=== PATIENT | male | born 1960 | race Caucasian/White ===

== ENCOUNTER 2022-02-15 05:45 | Day surgery (SDC) | payer MEDICARE ==
[2022-02-15 06:26] LABS: Hematocrit 48.1 % (42-50); Hemoglobin 14.2 g/dL (12.5-18.0); Mean Cell Volume 88.6 fL (78-100); Mean Corpuscular Hemoglobin 26.2 pg (26-32); Mean Corpuscular Hgb Concent. 29.5 g/dL (32-36); Mean Platelet Volume 10.9 fL (7.5-11.0); Platelet Count 176 x10^3/uL (150-450); Red Blood Count 5.43 x10^6/uL (4.1-5.6); Red Cell Distribution Width 15.3 % (11.5-14.0); White Blood Count 6.2 x10^3/uL (4.0-10.5)
[2022-02-15] MEDS ORDERED: Lactated Ringers 1,000 ML IV SCH (06:30)
[2022-02-15] MEDS ORDERED: DIPRIVAN 200 MG/20 ML IV ONE (06:47)
[2022-02-15] MEDS ORDERED: Xylocaine-Mpf 2% 5 Ml Vial ONE (06:47)
[2022-02-15] MEDS ORDERED: Versed 2 MG/2 ML Injection ONE (06:48)
[2022-02-15] MEDS ORDERED: Lactated Ringers 1,000 ML IV ONE (07:43)
[2022-02-15 08:47] VITALS: BP 108/68; PULSE 75; O2SAT 92
--- NOTE | 2022-02-15 16:49 | OP ---
SURGERY DATE: 02/15/2022 SURGERY TIME: 726 PREOPERATIVE DIAGNOSIS: 1. SCREENING EXAM. POSTOPERATIVE DIAGNOSIS: 1. NORMAL COLON. PROCEDURE: 1. Colonoscopy. SURGEON: Dr. Smith. ANESTHESIA: MAC. Medications given by the Anesthesia Department. BRIEF HISTORY: The patient is a 61 year-old WM patient presenting now for screening colonoscopy. The patient was appraised of the risks of the procedure including the risk of perforation, phlebitis, untoward reaction to medication, bleeding, and missed lesions. The patient verbalized his understanding and desired to have the procedure performed. DESCRIPTION OF PROCEDURE: The patient was given the medications by the Anesthesia Department. He had continuous pulse oximetry, ECG monitoring, and intermittent BP monitoring during the examination. He was placed in the left lateral decubitus position. A digital rectal examination was performed and revealed normal anal sphincter tone, no masses, and a normal prostate. The flexible Olympus pediatric colonoscope was used to intubate the rectum. A view of the colon was developed sequentially to the cecum. Upon insertion and withdrawal, was noted no mucosal lesions. The scope was removed from the patient who tolerated the procedure well and was sent back to OP recovery in good condition. The prep was noted to be fair to poor with large amounts of liquid and particulate matter throughout the colon.
== END 2022-02-15 08:52 | disposition home or self-care (01) ==
LOC: SDC 05:45
PROVIDERS: ATTEND Family Medicine
DX: Z12.11 Encounter for screening for malignant neoplasm of colon (principal); E11.9 Type 2 diabetes mellitus without complications
CPT/HCPCS: 36415; 82947; 85027; J2250; J2704

== ENCOUNTER 2023-08-18 09:50 | Emergency (ER) | payer MEDICARE ==
--- NOTE | 2023-08-18 10:15 | ERPHSYRPT ---
- History of Present Illness Time Seen by Provider: 08/18/23 09:57 Source: patient, family () Exam Limitations: no limitations Physician History: Reportedly 1 week ago a walker ran over pt's left foot with resultant pain. Last night pt's left small toe had pus; today pt had redness of the left side of his left foot. Pt denies chest pain, shortness of air, nausea, abdominal pain, fever. Allergies/Adverse Reactions: Penicillins Allergy (Verified 08/18/23 10:05) states "don't know, my mom just always said that" Home Medications: Aspirin [Aspirin EC] 81 mg PO DAILY 01/31/22 [History] Clopidogrel Bisulfate [Clopidogrel] 75 mg PO DAILY 01/31/22 [History] Dulaglutide [Trulicity] 0.75 ml SQ WEEKLY 01/31/22 [History] Metoprolol Succinate 25 mg Xl* [Toprol-Xl 25MG Tablets] 25 mg PO DAILY 01/31/22 [History] Pentoxifylline 400 mg PO BID 01/31/22 [History] Potassium Chloride 8 meq PO BID 01/31/22 [History] Evolocumab [Repatha Sureclick] 140 mg SQ UD 07/17/23 [History] Ubidecarenone/Vit E Acet [Co Q-10 100 mg Softgel] 1 each PO DAILY 07/17/23 [History] lisinopriL [Lisinopril] 1 tab PO DAILY 07/17/23 [History] Furosemide [Lasix] 20 mg PO DAILY 08/18/23 [History] Hx Tetanus, Diphtheria Vaccination/Date Given: (unknown) Hx Influenza Vaccination/Date Given: (unknown) Hx Pneumococcal Vaccination/Date Given: (unknown) - Review of Systems Constitutional: No Fever Respiratory: No Dyspnea Cardiac: No Chest Pain Abdominal/Gastrointestinal: No Abdominal Pain, No Nausea, No Vomiting Musculoskeletal: Injury (left foot) - Past Medical History Pertinent Past Medical History: Yes Neurological History: No Pertinent History ENT History: No Pertinent History Cardiac History: Hypertension Respiratory History: No Pertinent History Endocrine Medical History: Diabetes Type II Musculoskeletal History: No Pertinent History GI Medical History: No Pertinent History History: No Pertinent History Psycho-Social History: No Pertinent History Male Reproductive Disorders: No Pertinent History - Past Surgical History Past Surgical History: Yes Neuro Surgical History: No Pertinent History Cardiac: CABG, Pacemaker, Internal Defibrillator Respiratory: No Pertinent History Gastrointestinal: No Pertinent History, Cholecystectomy Genitourinary: No Pertinent History Musculoskeletal: No Pertinent History, Other Male Surgical History: No Pertinent History Other Surgical History: girlfriend states some type of heart surgery 10 years ago. Left eye surgery Feb 2023 - Social History Smoking Status: Unknown if ever smoked Exposure to second hand smoke: No Drug Use: none Patient Lives Alone: No - Nursing Vital Signs Nursing Vital Signs: Initial Vital Signs Temperature 97.9 F 08/18/23 09:50 Pulse Rate 70 08/18/23 09:50 Respiratory Rate 19 08/18/23 09:50 Blood Pressure 160/60 08/18/23 09:50 O2 Sat by Pulse Oximetry 93 L 08/18/23 09:50 Pain Scale Pain Intensity 0 - Physical Exam General Appearance: alert Eyes, Ears, Nose, Throat Exam: pharynx normal Neck Exam: normal inspection Cardiovascular/Respiratory Exam: normal breath sounds, heart sounds normal Gastrointestinal/Abdominal Exam: soft (B.S. normal) Foot Exam: left foot: swelling (erythema, edema and tenderness of the left forefoot with minimal amount of pus on the left small toe.) Mental Status Exam: alert, cooperative Skin Exam: No cyanosis - Radiology Exams Left Foot X-ray Interpretation: Teleradiologist Report (No acute osseous abnormality seen in foot. See rest of report.) Ordered Tests: Active Orders 24 hr Category Date Time Status IV Insertion STAT Care 08/18/23 10:09 Active FOOT (MINIMUM 3 VIEWS) Stat Exams 08/18/23 10:11 Completed BLOOD CULTURE Stat Lab 08/18/23 10:41 Received CBC W DIFF Stat Lab 08/18/23 10:15 Completed CMP Stat Lab 08/18/23 10:15 Completed Medication Summary Generic Name Dose Route Start Last Admin Trade Name Freq PRN Reason Stop Dose Admin Sodium Chloride 1,000 mls @ 100 mls/hr 08/18/23 10:15 08/18/23 10:49 Sodium Chloride 0.9% 1000 Ml IV 09/17/23 10:14 100 mls/hr .Q10H JAN Administration Discontinued Medications Generic Name Dose Route Start Last Admin Trade Name Freq PRN Reason Stop Dose Admin Clindamycin HCl/Dextrose 600 mg in 50 mls @ 100 mls/hr 08/18/23 10:10 08/18/23 11:26 Clindamycin-D5w 600 Mg/50 Ml IV 08/18/23 10:39 Infused STAT STA Infusion Clindamycin HCl/Dextrose Confirm 08/18/23 10:26 Clindamycin-D5w 600 Mg/50 Ml Administered 08/18/23 10:27 Dose 600 mg in 50 mls @ ud IV .STK-MED ONE Lab/Rad Data: Laboratory Result Diagrams 08/18/23 10:15 08/18/23 10:15 Laboratory Results 08/18/23 08/18/23 Range/Units 10:15 10:15 WBC 7.3 (4.0-10.5) x10^3/uL RBC 4.90 (4.1-5.6) x10^6/uL Hgb 13.4 (12.5-18.0) g/dL Hct 43.2 (42-50) % MCV 88.2 (78-100) fL MCH 27.3 (26-32) pg MCHC 31.0 L (32-36) g/dL RDW 12.4 (11.5-14.0) % Plt Count 141 L (150-450) x10^3/uL MPV 12.2 H (7.5-11.0) fL Gran % 76.7 H (36.0-66.0) % Immature Gran % (Auto) 0.3 (0.00-0.4) % Nucleat RBC Rel Count 0.0 (0.00-0.1) % Eos # (Auto) 0.10 (0-0.5) x10^3/uL Immature Gran # (Auto) 0.02 (0.00-0.03) x10^3u/L Absolute Lymphs (auto) 0.94 L (1.0-4.6) x10^3/uL Absolute Monos (auto) 0.58 (0.0-1.3) x10^3/uL Absolute Nucleated RBC 0.00 (0.00-0.01) x10^3u/L Lymphocytes % 12.9 L (24.0-44.0) % Monocytes % 8.0 (0.0-12.0) % Eosinophils % 1.4 (0.00-5.0) % Basophils % 0.7 (0.0-0.4) % Absolute Granulocytes 5.59 (1.4-6.9) x10^3/uL Basophils # 0.05 (0-0.4) x10^3/uL Sodium 138 (135-145) mmol/L Potassium 4.0 (3.5-5.1) mmol/L Chloride 100 (98-107) mmol/L Carbon Dioxide 26 (22-30) mmol/L Anion Gap 15.9 H (5-15) MEQ/L BUN 24 H (9-20) mg/dL Creatinine 1.30 H (0.66-1.25) mg/dL Estimated GFR 61.4 ML/MIN Glucose 354 H (74-106) mg/dL Calcium 9.6 (8.4-10.2) mg/dL Total Bilirubin 1.20 (0.2-1.3) mg/dL AST 20 (17-59) U/L ALT 16 (0-50) U/L Alkaline Phosphatase 174 H (38-126) U/L Serum Total Protein 7.9 (6.3-8.2) g/dL Albumin 4.3 (3.5-5.0) g/dL - Progress Progress: unchanged Counseled pt/family regarding: lab results, diagnosis, need for follow-up, rad results Medical Desision Making - Diagnostic Testing Diagnostic test were ordered, analyzed, and reviewed by me: Yes Radiological Interpretation: Teleradiologist Report - Departure Departure Disposition: Home Clinical Impression: Cellulitis of left foot Condition: Stable Critical Care Time: No Referrals: KENNEY CHOWDHURY [Primary Care Provider] - Follow up/PCP as directed Instructions: Cellulitis (Skin Infection), Adult ED Additional Instructions: Elevate left foot above heart level for the next 2 days. Follow up with private doctor tomorrow. Prescriptions: clindamycin HCL [Cleocin HCl] 300 mg PO Q6H #40 cap
[2023-08-18] MEDS ORDERED: CLINDAMYCIN-D5W 600 MG/50 ML*** 600 MG/50 ML BAG IV ONE (10:26)
[2023-08-18] MEDS ORDERED: Sodium Chloride 0.9% 1000 ML 1,000 ML ONE (10:26)
[2023-08-18 10:46] LABS: Absolute Neutrophil Ct (ANC) 5.59 x10^3/uL (1.4-6.9); BASOPHIL % 0.7 % (0.0-0.4); Basophil (Absolute #) 0.05 x10^3/uL (0-0.4); Eosinophil % 1.4 % (0.00-5.0); Hematocrit 43.2 % (42-50); Hemoglobin 13.4 g/dL (12.5-18.0); IMMATURE GRAN # 0.02 x10^3u/L (0.00-0.03); IMMATURE GRAN % 0.3 % (0.00-0.4); Lymphocyte (Absolute #) 0.94 x10^3/uL (1.0-4.6); Lymphocytes % 12.9 % (24.0-44.0); Mean Cell Volume 88.2 fL (78-100); Mean Corpuscular Hemoglobin 27.3 pg (26-32); Mean Platelet Volume 12.2 fL (7.5-11.0); Monocyte (Absolute #) 0.58 x10^3/uL (0.0-1.3); Neutrophil % 76.7 % (36.0-66.0); Platelet Count 141 x10^3/uL (150-450); Red Cell Distribution Width 12.4 % (11.5-14.0); White Blood Count 7.3 x10^3/uL (4.0-10.5)
[2023-08-18 10:49] VITALS: TEMP 97.9
[2023-08-18] MEDS: Sodium Chloride 0.9% 1000 ML 1,000 ML IV SCH (10:49)
[2023-08-18] MEDS: CLINDAMYCIN-D5W 600 MG/50 ML*** 600 MG/50 ML BAG IV STA (10:50)
[2023-08-18 11:08] LABS: ALBUMIN 4.3 g/dL (3.5-5.0); ANION GAP 15.9 MEQ/L (5-15); BILIRUBIN,TOTAL 1.2 mg/dL (0.2-1.3); Calcium 9.6 mg/dL (8.4-10.2); Creatinine 1 1.3 mg/dL (0.66-1.25); EST GLOMERULAR FILTRATION RATE 61.4 ML/MIN; Total Protein 7.9 g/dL (6.3-8.2)
--- NOTE | 2023-08-18 11:22 | XRAY ---
CLINICAL HISTORY: pain COMPARISON: None. TECHNIQUE: X-ray of left foot showing 3 views: AP, oblique and lateral views. FINDINGS: Normal bone mineral density noted. Radiological examination of foot demonstrates no lytic bone lesion. No definite fracture is visible. Cortical margins of the osseous structures are within normal limits. Valgus deformity of the metatarsophalangeal joint of the first toe with mild reduced joint space, sclerosis on the articular surfaces with marginal osteophytes. Otherwise, normal metatarsophalangeal and interphalangeal joint spaces. Sclerosis on the metatarsophalangeal and interphalangeal joints articular surfaces. Soft tissues appear unremarkable. IMPRESSION: 1. No acute osseous abnormality seen in foot. 2. Mild osteoarthritic changes of the left foot, more so on of metatarsophalangeal joint of the first toe. 3. Signs of Hallux Valgus. (Disclaimer: "A subtle bone abnormality or fracture may not be readily apparent on x-rays, thus clinical correlation and further imaging including follow-up CT, MRI, or follow-up x-rays are advised as needed"). Electronically Signed by: Juan Mendoza MD. (08/18/2023 11:17:59 EDT)
[2023-08-18 12:51] VITALS: BP 110/70; PULSE 60; RESP 16; O2SAT 96
== END 2023-08-18 12:55 | disposition home or self-care (01) ==
LOC: ED 09:50
DX: L03.116 Cellulitis of left lower limb (principal); I10 Essential (primary) hypertension; E11.9 Type 2 diabetes mellitus without complications; Z79.02 Long term (current) use of antithrombotics/antiplatelets; Z79.85 Long-term (current) use of injectable non-insulin antidiabetic drugs; Z79.899 Other long term (current) drug therapy
CPT/HCPCS: 36000; 36415; 73630; 80053; 85025; 87040; 96365; 99284

== ENCOUNTER 2023-08-22 14:15 | Day surgery (SDC) | payer MEDICARE ==
[2023-08-22 14:38] LABS: Hematocrit 45.2 % (42-50); Mean Cell Volume 88.8 fL (78-100); Mean Corpuscular Hemoglobin 27.5 pg (26-32); Platelet Count 162 x10^3/uL (150-450); Red Blood Count 5.09 x10^6/uL (4.1-5.6); Red Cell Distribution Width 12.6 % (11.5-14.0); White Blood Count 5.8 x10^3/uL (4.0-10.5)
[2023-08-22 14:41] VITALS: RESP 18
[2023-08-22] MEDS ORDERED: Lactated Ringers 1,000 ML IV ONE ×2 (14:41→16:50)
[2023-08-22] MEDS ORDERED: CLINDAMYCIN-D5W 900 MG/50 ML*** 900 MG/50 ML BAG IV ONE (14:41)
[2023-08-22] MEDS: CLINDAMYCIN-D5W 900 MG/50 ML*** 900 MG/50 ML BAG IV ONE (14:42)
[2023-08-22] MEDS: Lactated Ringers 1,000 ML IV SCH (14:42)
[2023-08-22 14:52] LABS: ALBUMIN 4.5 g/dL (3.5-5.0); ANION GAP 16.5 MEQ/L (5-15); BILIRUBIN,TOTAL 0.9 mg/dL (0.2-1.3); Calcium 9.5 mg/dL (8.4-10.2); Creatinine 1 1.44 mg/dL (0.66-1.25); EST GLOMERULAR FILTRATION RATE 54.3 ML/MIN; Potassium 4.1 mmol/L (3.5-5.1); Total Protein 8.2 g/dL (6.3-8.2)
[2023-08-22] MEDS ORDERED: HUMULIN R ONE (15:30)
[2023-08-22] MEDS: HUMULIN R SQ PRN (15:32)
[2023-08-22] MEDS ORDERED: Xylocaine 1% Vial 30 ML PF IJ ONE (16:00)
[2023-08-22] MEDS ORDERED: Marcaine Mpf 0.5% Vial 30 Ml ONE (16:00)
[2023-08-22] MEDS ORDERED: DIPRIVAN 200 MG/20 ML IV ONE ×2 (16:10→16:41)
[2023-08-22] MEDS ORDERED: Xylocaine-Mpf 2% 5 Ml Vial ONE (16:10)
[2023-08-22] MEDS ORDERED: SUBLIMAZE 100 MCG/2 ML ONE (16:10)
[2023-08-22] MEDS ORDERED: Versed 2 MG/2 ML Injection ONE (16:10)
[2023-08-22 18:06] VITALS: TEMP 97.2; O2SAT 95
[2023-08-22 18:20] VITALS: BP 158/78; PULSE 65
--- NOTE | 2023-08-23 14:56 | OP ---
SURGERY DATE/TIME: 08/22/2023 1039 PREOPERATIVE DIAGNOSES: 1) Osteomyelitis fifth digit left foot. 2) Abscess left foot. 3) Controlled diabetes mellitus. 4) Pain left foot. 5) Peripheral neuropathy due to diabetes mellitus type II and cellulitis of the left foot. POSTOPERATIVE DIAGNOSES: 1) Osteomyelitis fifth digit left foot. 2) Abscess left foot. 3) Controlled diabetes mellitus. 4) Pain left foot. 5) Peripheral neuropathy due to diabetes mellitus type II and cellulitis of the left foot. PROCEDURE: Fifth toe and partial fifth metatarsal amputation with incision and drainage with bone debridement. SURGEON: Wu Beaver DPM. BULK FOLDER: None. ANESTHESIA: Monitored anesthesia care. HEMOSTASIS: Pressure dressing. QUANTITATIVE BLOOD LOSS: Approximately 15 cc. MATERIALS: 3-0 Nylon, 0.25 inch Iodoform packing. INJECTABLES: 20 cc of 1:1 mixture of 1% lidocaine plain and 0.5% bupivacaine plain injected in a mini-Lopez block to the left lower extremity. INDICATION FOR SURGERY: Evens is a very pleasant 63-year-old male well known to our service primarily for venous insufficiency ulcerations. However, he presented to our service at the recommendation of his primary care who saw a painful toe with an open wound to the left foot. The patient was seen approximately three days prior to presentation to our clinic. The patient saw him and had blood sugars drawn 300 to 500 which was uncontrolled secondary to the infection. He was urged to go present to the ER for admission. He was started on antibiotic and blood cultures were taken. At the time of presentation, the patient's toenail was nonviable and removed fairly easily with a significant amount of purulence being expressed from the tip of the toe when the extensor digitorum longus tendon was palpated. It was felt to give a significant amount of pain to the patient. An MRI was obtained demonstrating complete osteomyelitic fifth digit with some surrounding cellulitis to the extensor tendon sheath. The decision was made fairly quickly thereafter to proceed with amputation of the fifth digit in order to preserve the possibility of limited amputation and limited change in patient's ambulation. Aggressive measures were decided were decided to be taken. At this time , the patient understands all risks, complications and benefits of surgical intervention at this time including but not limited to infection, hematoma, seroma, possibility of delayed wound healing, nonwound healing and failure of surgical outcome. The patient understands all of these risks. Plenty of time was allowed for the patient to ask questions. However, the patient understands we are working against the infection and time. The patient understands this and wishes to proceed. DESCRIPTION OF PROCEDURE AND FINDINGS: The patient is brought into the OR and placed on the OR table in the supine position. At this time, monitored anesthesia care was administered until the patient was adequately sedated. The left lower extremity is prepped and draped in the typical sterile fashion and lowered onto the surgical field. At this time, a 20 cc block of a 1:1 mixture of 1% lidocaine plain and 0.5% bupivacaine plain was injected in a mini-Lopez block-type fashion to the left lower extremity. Following this, incision was made circumferentially in a dorsal racket-type fashion to the left foot in order to track the extensor tendon. It was noted at this time that the bone quality was significantly poor that the scalpel could cut directly through the bone. From this standpoint, the decision was made for the complete amputation of the fifth digit. Once the metatarsal was probed once again I was able to cut through the metatarsal head and a partial metatarsal resection was deemed warranted. Biopsies were taken and cultures were taken at this time and handed off the field for pathologic assessment. At this time attention was then directed back to the wound where copious amounts of sterile saline and Bactisure were utilized to flush the surgical site. Any necrotic and nonviable tissue was removed from the wound. Following this, 3-0 Nylon was utilized to loosely coapt the skin edges and 0.25 inch Iodoform packing was then packed into the deficit of where the toe was amputated and some of the skin was salvaged. From this standpoint, a dressing consisting of Betadine, Adaptic, 4x4, Kerlix, ABD and LOTTIE was applied to the patient's left lower extremity with moderate compression. The patient was reversed from anesthesia and returned to the postoperative anesthesia care unit with vital signs stable and vascular status intact. The patient handled the anesthesia as well as the procedure without significant complication. Postoperative orders as indicated in the patient's discharge chart.
== END 2023-08-22 18:21 | disposition home or self-care (01) ==
LOC: SDC 14:15
PROVIDERS: ATTEND Podiatrist Foot & Ankle Surgery
DX: M86.9 Osteomyelitis, unspecified (principal); L02.612 Cutaneous abscess of left foot; E11.9 Type 2 diabetes mellitus without complications; M79.672 Pain in left foot; L03.116 Cellulitis of left lower limb; E11.42 Type 2 diabetes mellitus with diabetic polyneuropathy
CPT/HCPCS: 28005; 28810; 36415; 80053; 83605; 85027; 85652; 86140; 87046; 87070; 87075; 87116; 87205; 87206; 93005; A6260; J1815; J2001; J2250; J2704; J3010

== ENCOUNTER 2023-08-29 06:10 | Day surgery (SDC) | payer MEDICARE ==
[2023-08-29] MEDS ORDERED: Lactated Ringers 1,000 ML IV SCH (06:30)
[2023-08-29] MEDS ORDERED: Marcaine Mpf 0.5% Vial 30 Ml ONE (06:30)
[2023-08-29] MEDS ORDERED: Xylocaine 1% Vial 30 ML PF IJ ONE (06:30)
[2023-08-29 06:53] LABS: Hematocrit 41.1 % (42-50); Mean Cell Volume 87.3 fL (78-100); Mean Corpuscular Hemoglobin 27.6 pg (26-32); Mean Corpuscular Hgb Concent. 31.6 g/dL (32-36); Mean Platelet Volume 10.9 fL (7.5-11.0); Platelet Count 143 x10^3/uL (150-450); Red Blood Count 4.71 x10^6/uL (4.1-5.6); Red Cell Distribution Width 12.8 % (11.5-14.0); White Blood Count 4.6 x10^3/uL (4.0-10.5)
[2023-08-29 07:04] VITALS: RESP 16; TEMP 97.4
[2023-08-29] MEDS ORDERED: DIPRIVAN 200 MG/20 ML IV ONE ×2 (07:21→08:03)
[2023-08-29] MEDS ORDERED: SUBLIMAZE 100 MCG/2 ML ONE (07:21)
[2023-08-29] MEDS ORDERED: Versed 2 MG/2 ML Injection ONE (07:22)
[2023-08-29 07:24] LABS: ANION GAP 10.3 MEQ/L (5-15); BILIRUBIN,TOTAL 1.2 mg/dL (0.2-1.3); Calcium 9.1 mg/dL (8.4-10.2); Creatinine 1 1.51 mg/dL (0.66-1.25); EST GLOMERULAR FILTRATION RATE 51.3 ML/MIN; Total Protein 7.2 g/dL (6.3-8.2)
[2023-08-29] MEDS ORDERED: DEXMEDETOMIDINE 80 MCG/20ML-NS IV ONE (07:50)
[2023-08-29 09:14] VITALS: BP 165/79; PULSE 59
--- NOTE | 2023-08-29 09:26 | XRAY ---
Indication: Partial left foot digit resection. Intraoperative fluoroscopy provided for 6 seconds. 5 digital spot images submitted for interpretation demonstrates total amputation 5th toe and mid to distal 5th metatarsal. Correlate with intraoperative findings/report.
[2023-08-29 09:53] VITALS: O2SAT 96
[2023-08-29] MEDS: CLINDAMYCIN-D5W 900 MG/50 ML*** 900 MG/50 ML BAG IV ONE (09:57)
[2023-08-29] MEDS: Sodium Chloride 0.9% 10 ML FLUSH Syringe PORT FLUSH PRN (09:58)
[2023-08-29] MEDS: Invanz *** 1 G in Sodium Chloride 100ML MINI-BAG PLUS 100 ML IV SCH (09:59)
--- NOTE | 2023-08-29 11:08 | XRAY ---
6 seconds of fluoroscopy was used in surgery for a partial left foot digit resection.
--- NOTE | 2023-08-30 13:48 | OP ---
SURGERY DATE: 08/29/2023 SURGERY TIME: 720 PREOPERATIVE DIAGNOSIS: 1. OSTEOMYELITIS LEFT FOOT. 2. DIABETIC FOOT ULCER. 3. UNCONTROLLED DIABETES. 4. PAIN LEFT FOOT. 5. DIABETIC PERIPHERAL NEUROPATHY. POSTOPERATIVE DIAGNOSIS: 1. OSTEOMYELITIS LEFT FOOT. 2. DIABETIC FOOT ULCER. 3. UNCONTROLLED DIABETES. 4. PAIN LEFT FOOT. 5. DIABETIC PERIPHERAL NEUROPATHY. PROCEDURE: 1. Partial metatarsal resection for clean margins 5th metatarsal. 2. Incision and drainage with bone debridement left foot. 3. Abductor digiti minimi muscle flap. 4. Complex closure of surgical wound. SURGEON: Wu Beaver D.P.M. FORGE PRESS OPERATOR: None. ANESTHESIA: Monitored anesthesia care with an intraoperative local block consisting of 20 cc of a 1:1 mixture of 1% Lidocaine plain and 0.5% Bupivicaine plain injected in an ankle block type fashion. HEMOSTASIS: A pressure dressing. MATERIALS: 4-0 Monocryl, 2-0 Vicryl, 3-0 Nylon. INJECTABLES: 20 cc of a 1:1 mixture of 1% Lidocaine plain and 0.5% Bupivicaine plain injected in an ankle block type fashion. INDICATIONS FOR PROCEDURE: Evens is a very pleasant 63 year-old male very well known to my service for management of his diabetes. The patient presented to his primary care with concerns over pain to his 5th toe after a hypoglycemic episode. Since then, the patient did have some issue with pain increasing and redness and swelling. The patient presented to my office at the behest of his primary care where the nail was removed in office and a significant amount of pus was identified within the extensor tendon sheath which was able to be expressed in clinic with a significant amount of pain. From that standpoint, we decided to proceed with obtaining an MRI which demonstrated osteomyelitis of the entire 5th digit. Intraoperative, we decided to proceed with the amputation of the 5th digit with inspection of the 5th metatarsal. The 5th metatarsal was inspected and deemed to be of poor quality with some indications of infection due to the fact that I was able to use a pair of pick-ups to squeeze the bone and pus drained out. The decision was made to resect a portion of bone and send that for pathology. However, that came back negative for osteomyelitis with the 5th toe coming back positive. Decision was made at this time now that the wound appear to have resolved from a soft tissue standpoint of residual infection to proceed with closure of the wound. In that respect, we did want to take clean margins of bone in order to assess if we could truly get rid of the bone infection during this period of time. The patient understands all risk, complications, and benefits of surgical intervention at this time including, but not limited to, infection; hematoma/seroma; possibility of delayed wound healing; non-wound healing; and possible need for further surgical intervention at a later date. No guarantees were provided as to the outcome of surgical intervention. Plenty of time was allowed for the patient to ask questions which were answered to his apparent satisfaction. The patient understands all this and wishes to proceed. DESCRIPTION OF PROCEDURE: The patient was brought into the OR. Placed on the OR table in the supine position. Monitored anesthesia care was administered until the patient was adequately sedated. Following this, the left lower extremity was prepped and draped in the typical sterile fashion. From that standpoint, attention was directed to the left ankle where a 20 cc block consisting of a 1:1 mixture of 1% Lidocaine plain and 0.5% Bupivicaine plain was injected in an ankle block type fashion. Following this, attention was directed to the surgical site where incision and drainage took place debriding the bone and debriding the 4th metatarsal which was exposed medially. This was carried out utilizing a combination of sharp and blunt dissection. However, the majority of the procedure was carried out utilizing a curette. From this standpoint, a partial metatarsal resection took place for clean margins of the 5th metatarsal and that was sent for pathology. This was handed off the field at that time. At this time, Bactisure was utilized to flush the surgical site. Then, 3 liters of sterile saline was utilized to flush the surgical site. Following this, the harvest of the abductor digiti minimi muscle flap was then utilized to envelop the bone to provide soft tissue coverage bulk to the area, better vascularity to the area as well as prevention of reinfection if the wound was ready to dehisce. Once this was sutured to the periosteum of the 5th metatarsal utilizing 2-0 Vicryl in a simple interrupted type fashion at 4 separate points, the closure of the wound took place making sure to incise and see a healthy bleeding edge on all sites. Following this, 4-0 Monocryl was utilized to coapt the subcutaneous skin edges, 3-0 Nylon was utilized in an alternating, simple interrupted, and horizontal mattress type fashion. Once coapted, a dressing consisting of Betadine, Adaptic, 4 X 4, Kerlix, ABD, and Cheo was applied to the patient's left lower extremity. The patient was then reversed from anesthesia and returned to the PACU with vital signs stable and vascular status intact. The patient handled the anesthesia as well as the procedure without significant complication. Postoperative orders as indicated in the patient's discharge chart.
== END 2023-08-29 09:40 | disposition home or self-care (01) ==
LOC: SDC 06:10
PROVIDERS: ATTEND Podiatrist Foot & Ankle Surgery
DX: M86.9 Osteomyelitis, unspecified (principal); E11.621 Type 2 diabetes mellitus with foot ulcer; E11.65 Type 2 diabetes mellitus with hyperglycemia; M79.672 Pain in left foot; E11.42 Type 2 diabetes mellitus with diabetic polyneuropathy
CPT/HCPCS: 13160; 15738; 28005; 28122; 36415; 73630; 76000; 80053; 85027; J1642; J2001; J2250; J2704; J3010

== ENCOUNTER 2023-12-08 09:36 | Inpatient (IN) | payer MEDICARE, OTHER ==
[2023-12-08] MEDS ORDERED: HYSEPT MC ONE (09:37)
[2023-12-08] MEDS ORDERED: Zofran 4 MG/2 ML VIAL ONE ×2 (10:15→16:36)
[2023-12-08] MEDS ORDERED: Maxipime 2 GM ONE ×2 (10:15→21:58)
[2023-12-08] MEDS ORDERED: Hydromorphone 1 mg/ml Injection ONE (10:16)
[2023-12-08] MEDS ORDERED: VANCOMYCIN 1 GRAM/200 ML BAG 1 GM/200 ML PIGGYBACK IV ONE (10:16)
[2023-12-08] MEDS: Zofran 4 MG/2 ML VIAL IV ONE (10:18)
[2023-12-08] MEDS: Hydromorphone 1 mg/ml Injection IV ONE (10:18)
[2023-12-08] MEDS ORDERED: Sodium Chloride 0.9% 100 ML ONE (10:20)
[2023-12-08] MEDS: Maxipime 2 GM** 2 G in Sodium Chloride 0.9% 100 ML IV STA (10:21)
[2023-12-08 10:27] LABS: Absolute Neutrophil Ct (ANC) 9.62 x10^3/uL (1.78-5.38); BASOPHIL % 0.4 % (0.2-1.2); Basophil (Absolute #) 0.05 x10^3/uL (0.01-0.08); Eosinophil (Absolute #) 0 x10^3/uL (0.04-0.54); Hematocrit 43.1 % (40.1-51.0); Hemoglobin 13.4 g/dL (13.7-17.5); IMMATURE GRAN # 0.05 x10^3u/L (0.001-0.031); IMMATURE GRAN % 0.4 % (0.001-0.429); Lymphocytes % 7.7 % (21.8-53.1); Mean Corpuscular Hemoglobin 26.7 pg (25.7-32.2); Mean Corpuscular Hgb Concent. 31.1 g/dL (32.3-36.5); Mean Platelet Volume 10.8 fL (9.4-12.4); Monocyte (Absolute #) 1.02 x10^3/uL (0.30-0.82); Monocytes % 8.8 % (5.3-12.2); Neutrophil % 82.7 % (34.0-67.9); Platelet Count 202 x10^3/uL (163-337); Red Blood Count 5.01 x10^6/uL (4.63-6.08); Red Cell Distribution Width 13.9 % (11.6-14.4); White Blood Count 11.6 x10^3/uL (4.23-9.07)
--- NOTE | 2023-12-08 10:39 | ERPHSYRPT ---
- History of Present Illness Time Seen by Provider: 12/08/23 09:38 Source: patient Exam Limitations: no limitations Patient Subjective Stated Complaint: Abscess Triage Nursing Assessment: Patient brought back to ED per w/c and transferred to bed per self. Patient A+O X.3 Patient's skin pink, warm and dry. Patient complains of abscess to buttocks for 3 days. Patient complains of pain 8/10 to area. Physician History: Patient here with hal-rectal pain for 3 days. Patient does have diabetes, states his sugars have been running "high". He has no falls or trauma. Here, no tachycardia, no fever, no tachypnea. States that he went over for blood draw today and the nurses noticed his draining through his briefs. Therefore, was sent over to the emergency department. Allergies/Adverse Reactions: Penicillins Allergy (Verified 12/08/23 09:42) states "don't know, my mom just always said that" Home Medications: Aspirin [Aspirin EC] 81 mg PO DAILY 01/31/22 [History] Clopidogrel Bisulfate [Clopidogrel] 75 mg PO DAILY 01/31/22 [History] Dulaglutide [Trulicity] 0.75 ml SQ WEEKLY 01/31/22 [History] Metoprolol Succinate 25 mg Xl* [Toprol-Xl 25MG Tablets] 25 mg PO DAILY 01/31/22 [History] Pentoxifylline 400 mg PO BID 01/31/22 [History] Evolocumab [Repatha Sureclick] 140 mg SQ UD 07/17/23 [History] Ubidecarenone/Vit E Acet [Co Q-10 100 mg Softgel] 1 each PO DAILY 07/17/23 [History] lisinopriL [Lisinopril] 1 tab PO DAILY 07/17/23 [History] Furosemide [Lasix] 20 mg PO DAILY 08/18/23 [History] Dorzolamide HCl/Timolol Maleat [Dorzolamide-Timolol Eye Drops] 1 drop OP BID 12/08/23 [History] Potassium Chloride 1 tab PO DAILY 12/08/23 [History] Hx Tetanus, Diphtheria Vaccination/Date Given: (unknown) Hx Influenza Vaccination/Date Given: No Hx Pneumococcal Vaccination/Date Given: No Immunizations Up to Date: Yes Travel Risk - International Travel Have you traveled outside of the country in past 3 weeks: No - Emerging Infectious Disease Are you exhibiting symptoms associated with any current EIDs: No Comment: pt has an existing infection in toe - Past Medical History Pertinent Past Medical History: Yes Neurological History: No Pertinent History ENT History: No Pertinent History Cardiac History: Hypertension Respiratory History: No Pertinent History Endocrine Medical History: Diabetes Type II Musculoskeletal History: No Pertinent History GI Medical History: No Pertinent History History: No Pertinent History Psycho-Social History: No Pertinent History Male Reproductive Disorders: No Pertinent History Other Medical History: cataract left eye - Past Surgical History Past Surgical History: Yes Neuro Surgical History: No Pertinent History Cardiac: CABG Respiratory: No Pertinent History Gastrointestinal: No Pertinent History, Cholecystectomy Genitourinary: No Pertinent History Musculoskeletal: No Pertinent History, Other Male Surgical History: No Pertinent History Other Surgical History: girlfriend states some type of heart surgery 10 years ago. Left eye surgery Feb 2023 - Social History Smoking Status: Never smoker Exposure to second hand smoke: No Drug Use: none Patient Lives Alone: No - Social Determinants of Health Will the patient participate in the screening: Yes Do you worry about a steady place to live?: No Do you have any problems with any of the following?: No known problems In the past 12 months,have you had to go without utilities?: No Transportation Issues: No Has anyone in your support network made you feel unsafe?: No Have you or anyone in your house had to go without enough: No - Nursing Vital Signs Nursing Vital Signs: Initial Vital Signs Pulse Rate 102 H 12/08/23 09:44 Blood Pressure 127/63 12/08/23 09:44 O2 Sat by Pulse Oximetry 98 12/08/23 09:44 Pain Scale Pain Intensity 4 - Physical Exam SpO2: 98 Comments: 12/08/23 10:51 Review of Systems Constitutional: Negative for fever. HENT: Negative for congestion. Respiratory: Negative for shortness of breath. Cardiovascular: Negative for chest pain. Gastrointestinal: Negative for abdominal pain. Genitourinary: Negative for dysuria. Musculoskeletal: Negative for back pain. Skin: Negative for rash. Neurological: Negative for headaches. Psychiatric/Behavioral: Negative for behavioral problems. All other systems reviewed and are negative. Physical Exam Vitals signs and nursing note reviewed. Constitutional: Appearance: Patient is well-developed. HENT: Head: Normocephalic and atraumatic. Eyes: Conjunctiva/sclera: Conjunctivae normal. Neck: Musculoskeletal: Normal range of motion. Trachea: No tracheal deviation. Cardiovascular: Rate and Rhythm: Normal rate. Pulmonary: Effort: Pulmonary effort is normal. No respiratory distress. Abdominal: Palpations: Abdomen is soft. Musculoskeletal: General: No deformity. Skin: General: Skin is warm and dry. Neurological/ Psychiatric: Mental Status: Mental status, behavior, interaction with environment is appropriate for patient's age and condition : Chaperoned by nurse Jaky Patient has significant rectal area excoriations extending around both clefts of his buttocks. On his left buttocks cheek he does have some increased edema, area of drainage, tenderness, some purulent drainage. However, there is no obvious focal area of abscess. It is more indurated and hard throughout. - Course Nursing assessment & vital signs reviewed: Yes EKG Interpreted by Me: Sinus Rhythm (EKG shows sinus rhythm, rate of 91, right bundle branch block, LA interval 140, QRS 151, QTc 501) Ordered Tests: Active Orders 24 hr Category Date Time Status Admit as Inpatient ROUTINE Care 12/08/23 14:05 Active Call Admit Doctor for Orders ON ADMISSION Care 12/08/23 14:05 Active Code Status Order ROUTINE Care 12/08/23 14:05 Active EKG-ER Only STAT Care 12/08/23 09:57 Active IV Insertion STAT Care 12/08/23 09:57 Active POCT Glucose Check STAT Care 12/08/23 10:07 Active NPO Diet 12/08/23 14:06 Active ABDOMEN AND PELVIS W/0 CONTRAS [CT] Stat Exams 12/08/23 09:57 Completed ABG [ARTERIAL BLOOD GASES] Stat Lab 12/08/23 14:02 Results BLOOD CULTURE Stat Lab 12/08/23 10:45 Received BMP Stat Lab 12/08/23 13:45 Completed CBC W DIFF Stat Lab 12/08/23 10:08 Completed CMP Stat Lab 12/08/23 10:08 Completed Lactic Acid Stat Lab 12/08/23 09:57 Completed Lactic Acid Stat Lab 12/08/23 12:11 Completed POCT GLUCOSE Stat Lab 12/08/23 10:05 Completed UA W/RFX UR CULTURE Stat Lab 12/08/23 12:46 Completed Pulse Oximetry CONTINUOUS RT 12/08/23 14:06 Active Medication Summary Generic Name Dose Route Start Last Admin Trade Name Freq PRN Reason Stop Dose Admin INSULIN REGULAR IN 0.9 % NACL 100 unit in 100 mls @ 8.27 mls/hr 12/08/23 13:33 Myxredlin 100 Unit/100 Ml Bag IV 01/07/24 13:32 .Q12H6M PRN HYPERGLYCEMIA Protocol 0.1 UNIT/KG/HR Sodium Chloride 1,000 mls @ 125 mls/hr 12/08/23 14:00 12/08/23 13:48 Sodium Chloride 0.9% 1000 Ml IV 01/07/24 13:59 125 mls/hr .Q8H JAN Administration Discontinued Medications Generic Name Dose Route Start Last Admin Trade Name Freq PRN Reason Stop Dose Admin Cefepime HCl Confirm 12/08/23 10:15 Cefepime Hcl 2 Gm Vial Administered 12/08/23 10:16 Dose 2 g .ROUTE .STK-MED ONE Hydromorphone HCl 0.5 mg 12/08/23 09:57 12/08/23 10:18 Hydromorphone 1 Mg/1ml Inj IV 12/08/23 09:58 0.5 mg STAT ONE Administration Hydromorphone HCl Confirm 12/08/23 10:16 Hydromorphone 1 Mg/1ml Inj Administered 12/08/23 10:17 Dose 1 mg .ROUTE .STK-MED ONE Cefepime HCl 2 g/ Sodium 100 mls @ 200 mls/hr 12/08/23 09:58 12/08/23 10:21 Chloride IV 12/08/23 10:27 200 mls/hr STAT STA Administration Vancomycin HCl 1 gm in 200 mls @ 125 mls/hr 12/08/23 09:58 12/08/23 13:43 Vancomycin 1 Gram/200 Ml Bag IV 12/08/23 11:33 Infused STAT ONE Infusion Vancomycin HCl Confirm 12/08/23 10:16 Vancomycin 1 Gram/200 Ml Bag Administered 12/08/23 10:17 Dose 1 gm in 200 mls @ ud IV .STK-MED ONE Sodium Chloride Confirm 12/08/23 10:20 Sodium Chloride 0.9% Administered 12/08/23 10:21 Dose 100 mls @ ud .ROUTE .STK-MED ONE Sodium Chloride 1,000 mls @ 999 mls/hr 12/08/23 10:57 12/08/23 12:57 Sodium Chloride 0.9% 1000 Ml IV 12/08/23 11:57 Infused .Q1H1M STA Infusion Sodium Chloride Confirm 12/08/23 11:01 Sodium Chloride 0.9% 1000 Ml Administered 12/08/23 11:02 Dose 1,000 mls @ ud .ROUTE .STK-MED ONE Sodium Chloride 1,000 mls @ 999 mls/hr 12/08/23 11:44 12/08/23 13:44 Sodium Chloride 0.9% 1000 Ml IV 12/08/23 12:44 Infused .Q1H1M STA Infusion Sodium Chloride Confirm 12/08/23 12:24 Sodium Chloride 0.9% 1000 Ml Administered 12/08/23 12:25 Dose 1,000 mls @ ud .ROUTE .STK-MED ONE Metronidazole 500 mg in 100 mls @ 200 mls/hr 12/08/23 13:41 12/08/23 13:49 Flagyl 500 Mg Ivpb IV 12/08/23 14:10 200 mls/hr STAT STA 200 mls/hr Administration Metronidazole Confirm 12/08/23 13:47 Flagyl 500 Mg Ivpb Administered 12/08/23 13:48 Dose 500 mg in 100 mls @ ud IV .STK-MED ONE Ondansetron HCl 4 mg 12/08/23 09:57 12/08/23 10:18 Ondansetron Hcl 4 Mg/2 Ml Vial IV 12/08/23 09:58 4 mg STAT ONE Administration Ondansetron HCl Confirm 12/08/23 10:15 Ondansetron Hcl 4 Mg/2 Ml Vial Administered 12/08/23 10:16 Dose 4 mg .ROUTE .STK-MED ONE Lab/Rad Data: Laboratory Result Diagrams 12/08/23 10:08 12/08/23 13:45 Laboratory Results 12/08/23 12/08/23 12/08/23 Range/Units 14:02 13:45 12:46 WBC (4.23-9.07) x10^3/uL RBC (4.63-6.08) x10^6/uL Hgb (13.7-17.5) g/dL Hct (40.1-51.0) % MCV (79.0-92.2) fL MCH (25.7-32.2) pg MCHC (32.3-36.5) g/dL RDW (11.6-14.4) % Plt Count (163-337) x10^3/uL MPV (9.4-12.4) fL Gran % (34.0-67.9) % Immature Gran % (Auto) (0.001-0.429) % Nucleat RBC Rel Count (0.00-0.2) % Eos # (Auto) (0.04-0.54) x10^3/uL Immature Gran # (Auto) (0.001-0.031) x10^3u/L Absolute Lymphs (auto) (1.32-3.57) x10^3/uL Absolute Monos (auto) (0.30-0.82) x10^3/uL Absolute Nucleated RBC (0.00-0.012) x10^3u/L Lymphocytes % (21.8-53.1) % Monocytes % (5.3-12.2) % Eosinophils % (0.8-7.0) % Basophils % (0.2-1.2) % Absolute Granulocytes (1.78-5.38) x10^3/uL Basophils # (0.01-0.08) x10^3/uL Puncture Site Pending pCO2 21 L (35-45) mmHg pO2 100 (75-100) mmHg Base Excess -16.8 L (-2.0-2.0) O2 Saturation 96.6 (94-100) g/dF ABG pH 7.23 L* (7.35-7.45) ABG HCO3 8.8 L* (22-28) ABG O2 Sat (Measured) 98.2 (95-100) % Junior Test Pending A-a Gradient 23 a/A Ratio 0.81 Hemoglobin 12.9 Carboxyhemoglobin 0.6 (0.0-6.9) % THgb Methemoglobin 1.1 L (1.4-1.5) % Temperature 37.0 C POC O2 Flow Rate 21 % Sodium 135 (135-145) mmol/L Potassium 5.1 5.0 (3.5-5.1) mmol/L Chloride 100 (98-107) mmol/L Carbon Dioxide 8 L* (22-30) mmol/L Anion Gap 32.3 H (5-15) MEQ/L BUN 37 H (9-20) mg/dL Creatinine 1.61 H (0.66-1.25) mg/dL Estimated GFR 47.5 ML/MIN Glucose 413 H (74-106) mg/dL POC Glucometer (74 to 106) mg/dL Lactic Acid (0.4-2.0) Calcium 9.1 (8.4-10.2) mg/dL Total Bilirubin (0.2-1.3) mg/dL AST (17-59) U/L ALT (0-50) U/L Alkaline Phosphatase (38-126) U/L Serum Total Protein (6.3-8.2) g/dL Albumin (3.5-5.0) g/dL Urine Color Yellow (Yellow) Urine Appearance Clear (Clear) Urine pH 5.0 (4.6-8.0) Ur Specific [place] 1.020 (1.005-1.030) Urine Protein 30 (Negative) Urine Glucose (UA) >=1000 A (Negative) mg/dL Urine Ketones >=160 A (Negative) Urine Blood Negative (Negative) Urine Nitrite Negative (Negative) Urine Bilirubin Negative (Negative) Urine Urobilinogen 0.2 (0.2) mg/dL Ur Leukocyte Esterase Negative (Negative) U Hyaline Cast (Auto) 3-5 A (0-2) /LPF Urine Microscopic RBC 0-2 (0-5) /HPF Urine Microscopic WBC 0-2 (0-5) /HPF Ur Epithelial Cells None Seen (None Seen) /HPF Urine Bacteria None Seen (None Seen) /HPF Urine Culture Reflexed NO (NO) 12/08/23 12/08/23 12/08/23 Range/Units 12:11 10:08 10:08 WBC 11.6 H (4.23-9.07) x10^3/uL RBC 5.01 (4.63-6.08) x10^6/uL Hgb 13.4 L (13.7-17.5) g/dL Hct 43.1 (40.1-51.0) % MCV 86.0 (79.0-92.2) fL MCH 26.7 (25.7-32.2) pg MCHC 31.1 L (32.3-36.5) g/dL RDW 13.9 (11.6-14.4) % Plt Count 202 (163-337) x10^3/uL MPV 10.8 (9.4-12.4) fL Gran % 82.7 H (34.0-67.9) % Immature Gran % (Auto) 0.4 (0.001-0.429) % Nucleat RBC Rel Count 0.0 (0.00-0.2) % Eos # (Auto) 0 L (0.04-0.54) x10^3/uL Immature Gran # (Auto) 0.05 H (0.001-0.031) x10^3u/L Absolute Lymphs (auto) 0.90 L (1.32-3.57) x10^3/uL Absolute Monos (auto) 1.02 H (0.30-0.82) x10^3/uL Absolute Nucleated RBC 0.00 (0.00-0.012) x10^3u/L Lymphocytes % 7.7 L (21.8-53.1) % Monocytes % 8.8 (5.3-12.2) % Eosinophils % 0.0 L (0.8-7.0) % Basophils % 0.4 (0.2-1.2) % Absolute Granulocytes 9.62 H (1.78-5.38) x10^3/uL Basophils # 0.05 (0.01-0.08) x10^3/uL Puncture Site pCO2 (35-45) mmHg pO2 (75-100) mmHg Base Excess (-2.0-2.0) O2 Saturation (94-100) g/dF ABG pH (7.35-7.45) ABG HCO3 (22-28) ABG O2 Sat (Measured) (95-100) % Junior Test A-a Gradient a/A Ratio Hemoglobin Carboxyhemoglobin (0.0-6.9) % THgb Methemoglobin (1.4-1.5) % Temperature C POC O2 Flow Rate % Sodium 134 L (135-145) mmol/L Potassium 4.9 (3.5-5.1) mmol/L Chloride 96 L (98-107) mmol/L Carbon Dioxide 8 L* (22-30) mmol/L Anion Gap 35.2 H (5-15) MEQ/L BUN 36 H (9-20) mg/dL Creatinine 1.90 H (0.66-1.25) mg/dL Estimated GFR 38.9 ML/MIN Glucose 459 H (74-106) mg/dL POC Glucometer (74 to 106) mg/dL Lactic Acid 1.8 (0.4-2.0) Calcium 9.8 (8.4-10.2) mg/dL Total Bilirubin 1.00 (0.2-1.3) mg/dL AST 19 (17-59) U/L ALT 21 (0-50) U/L Alkaline Phosphatase 140 H (38-126) U/L Serum Total Protein 7.4 (6.3-8.2) g/dL Albumin 4.2 (3.5-5.0) g/dL Urine Color (Yellow) Urine Appearance (Clear) Urine pH (4.6-8.0) Ur Specific [place] (1.005-1.030) Urine Protein (Negative) Urine Glucose (UA) (Negative) mg/dL Urine Ketones (Negative) Urine Blood (Negative) Urine Nitrite (Negative) Urine Bilirubin (Negative) Urine Urobilinogen (0.2) mg/dL Ur Leukocyte Esterase (Negative) U Hyaline Cast (Auto) (0-2) /LPF Urine Microscopic RBC (0-5) /HPF Urine Microscopic WBC (0-5) /HPF Ur Epithelial Cells (None Seen) /HPF Urine Bacteria (None Seen) /HPF Urine Culture Reflexed (NO) 12/08/23 12/08/23 Range/Units 10:05 09:57 WBC (4.23-9.07) x10^3/uL RBC (4.63-6.08) x10^6/uL Hgb (13.7-17.5) g/dL Hct (40.1-51.0) % MCV (79.0-92.2) fL MCH (25.7-32.2) pg MCHC (32.3-36.5) g/dL RDW (11.6-14.4) % Plt Count (163-337) x10^3/uL MPV (9.4-12.4) fL Gran % (34.0-67.9) % Immature Gran % (Auto) (0.001-0.429) % Nucleat RBC Rel Count (0.00-0.2) % Eos # (Auto) (0.04-0.54) x10^3/uL Immature Gran # (Auto) (0.001-0.031) x10^3u/L Absolute Lymphs (auto) (1.32-3.57) x10^3/uL Absolute Monos (auto) (0.30-0.82) x10^3/uL Absolute Nucleated RBC (0.00-0.012) x10^3u/L Lymphocytes % (21.8-53.1) % Monocytes % (5.3-12.2) % Eosinophils % (0.8-7.0) % Basophils % (0.2-1.2) % Absolute Granulocytes (1.78-5.38) x10^3/uL Basophils # (0.01-0.08) x10^3/uL Puncture Site pCO2 (35-45) mmHg pO2 (75-100) mmHg Base Excess (-2.0-2.0) O2 Saturation (94-100) g/dF ABG pH (7.35-7.45) ABG HCO3 (22-28) ABG O2 Sat (Measured) (95-100) % Junior Test A-a Gradient a/A Ratio Hemoglobin Carboxyhemoglobin (0.0-6.9) % THgb Methemoglobin (1.4-1.5) % Temperature C POC O2 Flow Rate % Sodium (135-145) mmol/L Potassium (3.5-5.1) mmol/L Chloride (98-107) mmol/L Carbon Dioxide (22-30) mmol/L Anion Gap (5-15) MEQ/L BUN (9-20) mg/dL Creatinine (0.66-1.25) mg/dL Estimated GFR ML/MIN Glucose (74-106) mg/dL POC Glucometer 413 H (74 to 106) mg/dL Lactic Acid 2.5 H (0.4-2.0) Calcium (8.4-10.2) mg/dL Total Bilirubin (0.2-1.3) mg/dL AST (17-59) U/L ALT (0-50) U/L Alkaline Phosphatase (38-126) U/L Serum Total Protein (6.3-8.2) g/dL Albumin (3.5-5.0) g/dL Urine Color (Yellow) Urine Appearance (Clear) Urine pH (4.6-8.0) Ur Specific [place] (1.005-1.030) Urine Protein (Negative) Urine Glucose (UA) (Negative) mg/dL Urine Ketones (Negative) Urine Blood (Negative) Urine Nitrite (Negative) Urine Bilirubin (Negative) Urine Urobilinogen (0.2) mg/dL Ur Leukocyte Esterase (Negative) U Hyaline Cast (Auto) (0-2) /LPF Urine Microscopic RBC (0-5) /HPF Urine Microscopic WBC (0-5) /HPF Ur Epithelial Cells (None Seen) /HPF Urine Bacteria (None Seen) /HPF Urine Culture Reflexed (NO) - Progress Progress: improved Progress Note: 12/08/23 10:53 Differential diagnosis includes infection, abscess, necrotizing fasciitis, hyperglycemia. We did start with our initial workup including fluids, blood cultures, antibiotics, basic labs. Patient was found to be in DKA. Patient was given 2 L of fluid prior to insulin starting. This is to ensure his volume is appropriate, recheck BMP, and will insulin drip ordered now. CT scan was significant for most likely acute necrotizing fasciitis due to a left perineal abscess in the setting of a DKA. Initially we did attempt to call our on-call general surgeon, Dr. Aureliano Ramirez. He did return the phone call. He reviewed the images and I did reexamine the patient. Patient has no scrotal involvement, perineum involvement at this point in time. Dr. Ramirez felt that he could drain the patient's abscess here, debrid ed the necrotizing fasciitis. He requested admission to the hospital team and he would perform operation this afternoon. Patient currently hemodynamically stable, blood culture sent. Patient does not appear to be in septic shock at this point in time. No blood pressure support needed. We did add metronidazole onto our IV antibiotics given the history of likely necrotizing fasciitis. I discussed over the phone with on-call hospitalist, Dr. Snell. We went over the case in detail. She did accept patient to her service. ED critical care statement As staff physician, I have provided critical care. Time: 55 mins Criteria for critical illness: DKA, necrotizing fasciitis Treatment and management provided include: Coordination of management with ETC care team, consultants, and inpatient care team. [id number] assessment of condition and response to therapy. Review and interpretation of emergent diagnostic testing. Medical chart review and completion. Direction and immediate supervision of the following therapy: Critical care was time spent personally by me on the following activities: blood draw for specimens, development of treatment plan with patient or surrogate, discussions with consultants, discussions with primary provider, interpretation of cardiac output measurements, evaluation of patient's response to treatment, examination of patient, obtaining history from patient or surrogate, ordering and performing treatments and interventions, ordering and review of laboratory studies, ordering and review of radiographic studies, pulse oximetry, re-evaluation of patient's condition and review of old charts. This time was independent of all procedures performed. Jonathon Lucio Counseled pt/family regarding: lab results, diagnosis, need for follow-up, rad results - Departure Departure Disposition: In-patient Admission Clinical Impression: DKA (diabetic ketoacidosis), Perianal abscess, Necrotizing fasciitis Condition: Stable Critical Care Time: Yes Critical Care Time(excluding separately billable procedures): Critical 30-74 mins Referrals: KENNEY CHOWDHURY [Primary Care Provider] - Follow up/PCP as directed
[2023-12-08 10:40] LABS: ALBUMIN 4.2 g/dL (3.5-5.0); ANION GAP 35.2 MEQ/L (5-15); Calcium 9.8 mg/dL (8.4-10.2); Creatinine 1 1.9 mg/dL (0.66-1.25); EST GLOMERULAR FILTRATION RATE 38.9 ML/MIN; Potassium 4.9 mmol/L (3.5-5.1); Total Protein 7.4 g/dL (6.3-8.2)
[2023-12-08] MEDS ORDERED: Sodium Chloride 0.9% 1000 ML 1,000 ML ONE ×5 (11:01→16:25)
[2023-12-08] MEDS: Sodium Chloride 0.9% 1000 ML 1,000 ML IV STA ×2 (11:02→12:24)
[2023-12-08] MEDS: VANCOMYCIN 1 GRAM/200 ML BAG 1 GM/200 ML PIGGYBACK IV ONE (11:45)
--- NOTE | 2023-12-08 12:42 | XRAY ---
CLINICAL HISTORY: Perirectal abscess COMPARISON: No prior studies available for comparison. TECHNIQUE: Non-contrast CT of the abdomen and pelvis was performed in axial plane with reconstructed coronal and sagittal images. One of the following dose reduction techniques was utilized for this exam: Automated exposure control, adjustment of the mA and/or kV according to patient size, and use of iterative reconstruction. FINDINGS: Abdomen: Liver: Normal in size, shape, and density. No focal lesions, cysts, or masses were identified within the limitations of non-contrast study. Hepatic vasculature and biliary ducts are unremarkable. Gallbladder and Biliary System: The gallbladder is surgically removed. The common bile duct is normal in caliber without dilation. Pancreas: Pancreatic head, body, and tail are visualized and appear normal in size and density. No pancreatic masses or calcifications were noted. The pancreatic duct is not dilated. Spleen: Normal in size, shape, and density. No splenic lesions or masses were identified. Kidneys and Adrenal Glands: Both kidneys are normal in size, shape, and position. Cortical thickness is within normal limits. No renal calculi or hydronephrosis. Adrenal glands are unremarkable with no evidence of masses or hyperplasia. Pelvis: Urinary Bladder: Normal in contour and wall thickness. No intraluminal lesions identified. There is fat stranding with extraluminal soft tissue gas in the left perianal soft tissues along the left gluteal cleft extending to the left ischiorectal fossa. No signs of rectal perforation or fistulous communication Prostate: Normal in size and contour. Bowel: The visualized bowel loops are normal in caliber and appearance. No evidence of bowel obstruction or wall thickening. Normal appearing appendix. Bones and Soft Tissues: Multilevel spondylodegenerative change within the visualized spine Pelvic bones and soft tissues are unremarkable. No fractures or abnormal masses were identified. Additional findings: Suggestion of small duodenal diverticulum arising from the second part of duodenum medial aspect Atherosclerotic calcifications of the abdominal aorta and iliac vessels IMPRESSION: CT appearances shows fat stranding with extraluminal soft tissue gas in the left perianal soft tissues along the left gluteal cleft extending to the left ischiorectal fossa. Findings are suggestive of left perianal abscess with cellulitis concerning for necrotizing soft tissue infection . No definite signs of rectal perforation or fistulous communication. Clinical correlation is recommended and contrast enhanced MRI may be recommended for further evaluation. [facility] ER was called at [phone] at 11:33 AM ENERGY CONSERVATION DIRECTOR, 12/08/[address] Lucio was informed regarding the presence of Important Medical Findings in the report. Electronically Signed by: Juan Mendoza MD. (12/08/2023 12:37:36 EDT)
[2023-12-08 13:21] LABS: ADD URINE CULTURE? NO (NO); Appearance Clear (Clear); Bacteria None Seen /HPF (None Seen); Bilirubin Negative (Negative); Blood Negative (Negative); Epithelial Cells None Seen /HPF (None Seen); Glucose, Urine >=1000 mg/dL (Negative); Ketones >=160 (Negative); Leukocyte Esterase Negative (Negative); Nitrite Negative (Negative); Protein,Urine Dip 30 (Negative); RBC 0-2 /HPF (0-5); Urobilinogen 0.2 mg/dL (0.2); WBC 0-2 /HPF (0-5)
[2023-12-08] MEDS ORDERED: FLAGYL 500 MG IVPB 500 MG/100 ML BAG IV ONE (13:47)
[2023-12-08] MEDS: Sodium Chloride 0.9% 1000 ML 1,000 ML IV SCH (13:48)
[2023-12-08] MEDS: FLAGYL 500 MG IVPB 500 MG/100 ML BAG IV STA (13:49)
[2023-12-08 14:06] LABS: ANION GAP 32.3 MEQ/L (5-15); Calcium 9.1 mg/dL (8.4-10.2); Creatinine 1 1.61 mg/dL (0.66-1.25); EST GLOMERULAR FILTRATION RATE 47.5 ML/MIN
[2023-12-08 14:18] LABS: A-aADO2 23; ABG HEMOGLOBIN 12.9; ABG POTASSIUM 5.1 (3.5-5.1); ARTERIAL BLD GAS O2 SATURATION 98.2 % (95-100); ARTERIAL BLOOD GAS BASE EXCESS -16.8 (-2.0-2.0); ARTERIAL BLOOD GAS FIO2 21 %; ARTERIAL BLOOD GAS PCO2 21 mmHg (35-45); ARTERIAL BLOOD GAS PO2 100 mmHg (75-100); CARBOXYHEMOGLOBIN 0.6 % THgb (0.0-6.9); HCO3- 8.8 (22-28); HGB O2 SAT 96.6 g/dF (94-100); Methhemoglobin 1.1 % (1.4-1.5); paO2 pAO1 0.81
[2023-12-08 14:19] LABS: ARTERIAL BLOOD GAS pH 7.23 (7.35-7.45)
[2023-12-08] MEDS ORDERED: Quelicin Fliptop 200 MG/10 ML ONE (14:59)
[2023-12-08] MEDS ORDERED: SUBLIMAZE 100 MCG/2 ML ONE (14:59)
[2023-12-08] MEDS ORDERED: Versed 2 MG/2 ML Injection ONE (14:59)
[2023-12-08] MEDS ORDERED: ROCURONIUM BROMIDE IV ONE (14:59)
[2023-12-08] MEDS ORDERED: DIPRIVAN 200 MG/20 ML IV ONE (14:59)
[2023-12-08] MEDS ORDERED: HUMULIN R SQ ONE (15:00)
[2023-12-08] MEDS ORDERED: BREVIBLOC 100 MG/10 ML IV ONE (16:28)
[2023-12-08] MEDS ORDERED: BRIDION 200MG/2ML IV ONE (16:36)
[2023-12-08 18:01] LABS: Appearance Clear (Clear); Bacteria None Seen /HPF (None Seen); Bilirubin Negative (Negative); Blood Trace (Negative); Epithelial Cells None Seen /HPF (None Seen); Glucose, Urine >=1000 mg/dL (Negative); Ketones 80 (Negative); Leukocyte Esterase Negative (Negative); Nitrite Negative (Negative); Protein,Urine Dip Trace (Negative); RBC 0-2 /HPF (0-5); Specific Gravity 1.015 (1.005-1.030); Urobilinogen 0.2 mg/dL (0.2); WBC 0-2 /HPF (0-5)
--- NOTE | 2023-12-08 18:01 | PCM.HP ---
<SHAWN NOVOA - Last Filed: 12/08/23 18:36> History of Present Illness - Chief Complaint Chief Complaint: DKA Date: 12/08/23 History of Present Illness: is a 63 year old male with PMHX of HTN, Type II DM, CABG, and obesity He was seen OP today for labs and found to have leakage from his bottom and referred to the ER. In ER he was found to have a rectal abcess and was in DKA. He was started on an insulin gtt, and antibiotocs started. When from ER to OR for surgery of rectal mass and was thought to be necrotizing fascitis per ER note. DKA protocol to be continued IP as well as antibiotics. He is still groggy from surgery. He denies any C/O at this time. - Review of Systems Constitutional: No Fever, No Chills Eyes: No Symptoms Ears, Nose, & Throat: No Symptoms Respiratory: No Cough, No Short Of Breath Cardiac: No Chest Pain, No Edema, No Syncope Abdominal/Gastrointestinal: No Abdominal Pain, No Nausea, No Vomiting, No Diarrhea Genitourinary Symptoms: No Dysuria Musculoskeletal: No Back Pain, No Neck Pain Skin: Skin Lesions (rectal abcess), No Rash Neurological: No Dizziness, No Focal Weakness, No Sensory Changes Psychological: No Symptoms Endocrine: No Symptoms Hematologic/Lymphatic: No Symptoms Immunological/Allergic: No Symptoms Medications & Allergies Home Medications: Home Medication List Aspirin [Aspirin EC] 81 mg PO DAILY 01/31/22 [History Confirmed 12/08/23] Clopidogrel Bisulfate [Clopidogrel] 75 mg PO DAILY 01/31/22 [History Confirmed 12/08/23] Dulaglutide [Trulicity] 0.75 ml SQ WEEKLY 01/31/22 [History Confirmed 12/08/23] Metoprolol Succinate 25 mg Xl* [Toprol-Xl 25MG Tablets] 25 mg PO DAILY 01/31/22 [History Confirmed 12/08/23] Pentoxifylline 400 mg PO BID 01/31/22 [History Confirmed 12/08/23] Evolocumab [Repatha Sureclick] 140 mg SQ UD 07/17/23 [History Confirmed 12/08/23] lisinopriL [Lisinopril] 40 mg PO DAILY 07/17/23 [History Confirmed 12/08/23] Furosemide [Lasix] 20 mg PO DAILY 08/18/23 [History Confirmed 12/08/23] Dorzolamide HCl/Timolol Maleat [Dorzolamide-Timolol Eye Drops] 1 drop OP BID 12/08/23 [History Confirmed 12/08/23] Potassium Chloride 10 meq PO DAILY 12/08/23 [History Confirmed 12/08/23] Allergies/Adverse Reactions: Allergies Allergy/AdvReac Type Severity Reaction Status Date / Time Penicillins Allergy Verified 12/08/23 09:42 - Past Medical History Past Medical History: Yes Neurological History: No Pertinent History ENT History: No Pertinent History Cardiac History: Hypertension Respiratory History: No Pertinent History Endocrine Medical History: Diabetes Type II Musculoskelatal History: No Pertinent History GI Medical History: No Pertinent History History: No Pertinent History Pyscho-Social History: No Pertinent History Male Reproductive Disorders: No Pertinent History Comment: cataract left eye - Past Surgical History Past Surgical History: Yes Neuro Surgical History: No Pertinent History Cardiac History: CABG Respiratory Surgery: No Pertinent History GI Surgical History: No Pertinent History, Cholecystectomy Genitourinary Surgical Hx: No Pertinent History Musculskeletal Surgical Hx: No Pertinent History, Other Male Surgical History: No Pertinent History Other Surgical History: girlfriend states some type of heart surgery 10 years ag o. Left eye surgery Feb 2023 - Social History Smoking Status: Never smoker Exposure to second hand smoke: No Alcohol: Rarely Drug Use: none - Social Determinants of Health Will the patient participate in the screening: Yes Do you worry about a steady place to live?: No Do you have any problems with any of the following?: No known problems In the past 12 months,have you had to go without utilities?: No Have you or anyone in your house had to go without enough: No Transportation Issues: No Has anyone in your support network made you feel unsafe?: No Does the patient want assistance with any of the above?: No - Physical Exam Vital Signs: Vital Signs - 24 hr Temp Pulse Resp BP BP Pulse Ox 12/08/23 14:33 97.8 F 77 20 136/79 98 12/08/23 14:32 98 12/08/23 14:29 97.8 F 77 20 136/79 98 12/08/23 14:00 136/79 100 12/08/23 13:59 99 12/08/23 13:52 98 08/02/24 13:01 141/78 12/08/23 12:31 77 16 116/53 99 12/08/23 12:30 84 14 12/08/23 12:20 86 17 100 12/08/23 12:10 83 16 98 12/08/23 12:00 85 15 12/08/23 11:50 86 16 100 12/08/23 11:40 87 13 99 12/08/23 11:38 100 12/08/23 11:00 94/66 92 L 12/08/23 10:30 109/59 98 12/08/23 10:00 95 H 124/62 100 12/08/23 09:47 98.4 F 107 H 20 127/63 98 12/08/23 09:44 102 H 127/63 98 General Appearance: no apparent distress, alert, obese Neurologic Exam: alert, oriented x 3, cooperative, normal mood/affect, nml cerebellar function, nml station & gait, sensation nml, No motor deficits Eye Exam: PERRL/EOMI, eyes nml inspection Ears, Nose, Throat Exam: normal ENT inspection, TMs normal, pharynx normal, mois t mucous membranes Neck Exam: normal inspection, non-tender, supple, full range of motion Respiratory Exam: normal breath sounds, lungs clear, No respiratory distress Cardiovascular Exam: regular rate/rhythm, normal heart sounds, normal peripheral pulses Gastrointestinal/Abdomen Exam: soft, normal bowel sounds, No tenderness, No mass Rectal Exam: tenderness (from surgery today- dressing in place) Back Exam: normal inspection, normal range of motion, No CVA tenderness, No vertebral tenderness Extremity Exam: normal inspection, normal range of motion, pelvis stable Skin Exam: normal color, warm, dry, No rash Lymphatic Exam: No adenopathy Results - Labs Lab/Micro Results: Lab Results-Last 24 Hours 12/08/23 12/08/23 12/08/23 Range/Units 09:57 10:05 10:08 WBC 11.6 H (4.23-9.07) x10^3/uL RBC 5.01 (4.63-6.08) x10^6/uL Hgb 13.4 L (13.7-17.5) g/dL Hct 43.1 (40.1-51.0) % MCV 86.0 (79.0-92.2) fL MCH 26.7 (25.7-32.2) pg MCHC 31.1 L (32.3-36.5) g/dL RDW 13.9 (11.6-14.4) % Plt Count 202 (163-337) x10^3/uL MPV 10.8 (9.4-12.4) fL Gran % 82.7 H (34.0-67.9) % Immature Gran % (Auto) 0.4 (0.001-0.429) % Nucleat RBC Rel Count 0.0 (0.00-0.2) % Eos # (Auto) 0 L (0.04-0.54) x10^3/uL Immature Gran # (Auto) 0.05 H (0.001-0.031) x10^3u/L Absolute Lymphs (auto) 0.90 L (1.32-3.57) x10^3/uL Absolute Monos (auto) 1.02 H (0.30-0.82) x10^3/uL Absolute Nucleated RBC 0.00 (0.00-0.012) x10^3u/L Lymphocytes % 7.7 L (21.8-53.1) % Monocytes % 8.8 (5.3-12.2) % Eosinophils % 0.0 L (0.8-7.0) % Basophils % 0.4 (0.2-1.2) % Absolute Granulocytes 9.62 H (1.78-5.38) x10^3/uL Basophils # 0.05 (0.01-0.08) x10^3/uL Puncture Site pCO2 (35-45) mmHg pO2 (75-100) mmHg Base Excess (-2.0-2.0) O2 Saturation (94-100) g/dF ABG pH (7.35-7.45) ABG HCO3 (22-28) ABG O2 Sat (Measured) (95-100) % Junior Test A-a Gradient a/A Ratio Hemoglobin Carboxyhemoglobin (0.0-6.9) % THgb Methemoglobin (1.4-1.5) % Temperature C POC O2 Flow Rate % Sodium (135-145) mmol/L Potassium (3.5-5.1) mmol/L Chloride (98-107) mmol/L Carbon Dioxide (22-30) mmol/L Anion Gap (5-15) MEQ/L BUN (9-20) mg/dL Creatinine (0.66-1.25) mg/dL Estimated GFR ML/MIN Glucose (74-106) mg/dL POC Glucometer 413 H (74 to 106) mg/dL Lactic Acid 2.5 H (0.4-2.0) Calcium (8.4-10.2) mg/dL Total Bilirubin (0.2-1.3) mg/dL AST (17-59) U/L ALT (0-50) U/L Alkaline Phosphatase (38-126) U/L Serum Total Protein (6.3-8.2) g/dL Albumin (3.5-5.0) g/dL Urine Color (Yellow) Urine Appearance (Clear) Urine pH (4.6-8.0) Ur Specific [place] (1.005-1.030) Urine Protein (Negative) Urine Glucose (UA) (Negative) mg/dL Urine Ketones (Negative) Urine Blood (Negative) Urine Nitrite (Negative) Urine Bilirubin (Negative) Urine Urobilinogen (0.2) mg/dL Ur Leukocyte Esterase (Negative) U Hyaline Cast (Auto) (0-2) /LPF Urine Microscopic RBC (0-5) /HPF Urine Microscopic WBC (0-5) /HPF Ur Epithelial Cells (None Seen) /HPF Urine Bacteria (None Seen) /HPF Urine Culture Reflexed (NO) 12/08/23 12/08/23 12/08/23 Range/Units 10:08 12:11 12:46 WBC (4.23-9.07) x10^3/uL RBC (4.63-6.08) x10^6/uL Hgb (13.7-17.5) g/dL Hct (40.1-51.0) % MCV (79.0-92.2) fL MCH (25.7-32.2) pg MCHC (32.3-36.5) g/dL RDW (11.6-14.4) % Plt Count (163-337) x10^3/uL MPV (9.4-12.4) fL Gran % (34.0-67.9) % Immature Gran % (Auto) (0.001-0.429) % Nucleat RBC Rel Count (0.00-0.2) % Eos # (Auto) (0.04-0.54) x10^3/uL Immature Gran # (Auto) (0.001-0.031) x10^3u/L Absolute Lymphs (auto) (1.32-3.57) x10^3/uL Absolute Monos (auto) (0.30-0.82) x10^3/uL Absolute Nucleated RBC (0.00-0.012) x10^3u/L Lymphocytes % (21.8-53.1) % Monocytes % (5.3-12.2) % Eosinophils % (0.8-7.0) % Basophils % (0.2-1.2) % Absolute Granulocytes (1.78-5.38) x10^3/uL Basophils # (0.01-0.08) x10^3/uL Puncture Site pCO2 (35-45) mmHg pO2 (75-100) mmHg Base Excess (-2.0-2.0) O2 Saturation (94-100) g/dF ABG pH (7.35-7.45) ABG HCO3 (22-28) ABG O2 Sat (Measured) (95-100) % Junior Test A-a Gradient a/A Ratio Hemoglobin Carboxyhemoglobin (0.0-6.9) % THgb Methemoglobin (1.4-1.5) % Temperature C POC O2 Flow Rate % Sodium 134 L (135-145) mmol/L Potassium 4.9 (3.5-5.1) mmol/L Chloride 96 L (98-107) mmol/L Carbon Dioxide 8 L* (22-30) mmol/L Anion Gap 35.2 H (5-15) MEQ/L BUN 36 H (9-20) mg/dL Creatinine 1.90 H (0.66-1.25) mg/dL Estimated GFR 38.9 ML/MIN Glucose 459 H (74-106) mg/dL POC Glucometer (74 to 106) mg/dL Lactic Acid 1.8 (0.4-2.0) Calcium 9.8 (8.4-10.2) mg/dL Total Bilirubin 1.00 (0.2-1.3) mg/dL AST 19 (17-59) U/L ALT 21 (0-50) U/L Alkaline Phosphatase 140 H (38-126) U/L Serum Total Protein 7.4 (6.3-8.2) g/dL Albumin 4.2 (3.5-5.0) g/dL Urine Color Yellow (Yellow) Urine Appearance Clear (Clear) Urine pH 5.0 (4.6-8.0) Ur Specific [place] 1.020 (1.005-1.030) Urine Protein 30 (Negative) Urine Glucose (UA) >=1000 A (Negative) mg/dL Urine Ketones >=160 A (Negative) Urine Blood Negative (Negative) Urine Nitrite Negative (Negative) Urine Bilirubin Negative (Negative) Urine Urobilinogen 0.2 (0.2) mg/dL Ur Leukocyte Esterase Negative (Negative) U Hyaline Cast (Auto) 3-5 A (0-2) /LPF Urine Microscopic RBC 0-2 (0-5) /HPF Urine Microscopic WBC 0-2 (0-5) /HPF Ur Epithelial Cells None Seen (None Seen) /HPF Urine Bacteria None Seen (None Seen) /HPF Urine Culture Reflexed NO (NO) 12/08/23 12/08/23 12/08/23 Range/Units 13:45 14:02 15:03 WBC (4.23-9.07) x10^3/uL RBC (4.63-6.08) x10^6/uL Hgb (13.7-17.5) g/dL Hct (40.1-51.0) % MCV (79.0-92.2) fL MCH (25.7-32.2) pg MCHC (32.3-36.5) g/dL RDW (11.6-14.4) % Plt Count (163-337) x10^3/uL MPV (9.4-12.4) fL Gran % (34.0-67.9) % Immature Gran % (Auto) (0.001-0.429) % Nucleat RBC Rel Count (0.00-0.2) % Eos # (Auto) (0.04-0.54) x10^3/uL Immature Gran # (Auto) (0.001-0.031) x10^3u/L Absolute Lymphs (auto) (1.32-3.57) x10^3/uL Absolute Monos (auto) (0.30-0.82) x10^3/uL Absolute Nucleated RBC (0.00-0.012) x10^3u/L Lymphocytes % (21.8-53.1) % Monocytes % (5.3-12.2) % Eosinophils % (0.8-7.0) % Basophils % (0.2-1.2) % Absolute Granulocytes (1.78-5.38) x10^3/uL Basophils # (0.01-0.08) x10^3/uL Puncture Site Pending pCO2 21 L (35-45) mmHg pO2 100 (75-100) mmHg Base Excess -16.8 L (-2.0-2.0) O2 Saturation 96.6 (94-100) g/dF ABG pH 7.23 L* (7.35-7.45) ABG HCO3 8.8 L* (22-28) ABG O2 Sat (Measured) 98.2 (95-100) % Junior Test Pending A-a Gradient 23 a/A Ratio 0.81 Hemoglobin 12.9 Carboxyhemoglobin 0.6 (0.0-6.9) % THgb Methemoglobin 1.1 L (1.4-1.5) % Temperature 37.0 C POC O2 Flow Rate 21 % Sodium 135 (135-145) mmol/L Potassium 5.0 5.1 (3.5-5.1) mmol/L Chloride 100 (98-107) mmol/L Carbon Dioxide 8 L* (22-30) mmol/L Anion Gap 32.3 H (5-15) MEQ/L BUN 37 H (9-20) mg/dL Creatinine 1.61 H (0.66-1.25) mg/dL Estimated GFR 47.5 ML/MIN Glucose 413 H (74-106) mg/dL POC Glucometer 348 H (74 to 106) mg/dL Lactic Acid (0.4-2.0) Calcium 9.1 (8.4-10.2) mg/dL Total Bilirubin (0.2-1.3) mg/dL AST (17-59) U/L ALT (0-50) U/L Alkaline Phosphatase (38-126) U/L Serum Total Protein (6.3-8.2) g/dL Albumin (3.5-5.0) g/dL Urine Color (Yellow) Urine Appearance (Clear) Urine pH (4.6-8.0) Ur Specific [place] (1.005-1.030) Urine Protein (Negative) Urine Glucose (UA) (Negative) mg/dL Urine Ketones (Negative) Urine Blood (Negative) Urine Nitrite (Negative) Urine Bilirubin (Negative) Urine Urobilinogen (0.2) mg/dL Ur Leukocyte Esterase (Negative) U Hyaline Cast (Auto) (0-2) /LPF Urine Microscopic RBC (0-5) /HPF Urine Microscopic WBC (0-5) /HPF Ur Epithelial Cells (None Seen) /HPF Urine Bacteria (None Seen) /HPF Urine Culture Reflexed (NO) 12/08/23 Range/Units 17:19 WBC (4.23-9.07) x10^3/uL RBC (4.63-6.08) x10^6/uL Hgb (13.7-17.5) g/dL Hct (40.1-51.0) % MCV (79.0-92.2) fL MCH (25.7-32.2) pg MCHC (32.3-36.5) g/dL RDW (11.6-14.4) % Plt Count (163-337) x10^3/uL MPV (9.4-12.4) fL Gran % (34.0-67.9) % Immature Gran % (Auto) (0.001-0.429) % Nucleat RBC Rel Count (0.00-0.2) % Eos # (Auto) (0.04-0.54) x10^3/uL Immature Gran # (Auto) (0.001-0.031) x10^3u/L Absolute Lymphs (auto) (1.32-3.57) x10^3/uL Absolute Monos (auto) (0.30-0.82) x10^3/uL Absolute Nucleated RBC (0.00-0.012) x10^3u/L Lymphocytes % (21.8-53.1) % Monocytes % (5.3-12.2) % Eosinophils % (0.8-7.0) % Basophils % (0.2-1.2) % Absolute Granulocytes (1.78-5.38) x10^3/uL Basophils # (0.01-0.08) x10^3/uL Puncture Site pCO2 (35-45) mmHg pO2 (75-100) mmHg Base Excess (-2.0-2.0) O2 Saturation (94-100) g/dF ABG pH (7.35-7.45) ABG HCO3 (22-28) ABG O2 Sat (Measured) (95-100) % Junior Test A-a Gradient a/A Ratio Hemoglobin Carboxyhemoglobin (0.0-6.9) % THgb Methemoglobin (1.4-1.5) % Temperature C POC O2 Flow Rate % Sodium (135-145) mmol/L Potassium (3.5-5.1) mmol/L Chloride (98-107) mmol/L Carbon Dioxide (22-30) mmol/L Anion Gap (5-15) MEQ/L BUN (9-20) mg/dL Creatinine (0.66-1.25) mg/dL Estimated GFR ML/MIN Glucose (74-106) mg/dL POC Glucometer 320 H (74 to 106) mg/dL Lactic Acid (0.4-2.0) Calcium (8.4-10.2) mg/dL Total Bilirubin (0.2-1.3) mg/dL AST (17-59) U/L ALT (0-50) U/L Alkaline Phosphatase (38-126) U/L Serum Total Protein (6.3-8.2) g/dL Albumin (3.5-5.0) g/dL Urine Color (Yellow) Urine Appearance (Clear) Urine pH (4.6-8.0) Ur Specific [place] (1.005-1.030) Urine Protein (Negative) Urine Glucose (UA) (Negative) mg/dL Urine Ketones (Negative) Urine Blood (Negative) Urine Nitrite (Negative) Urine Bilirubin (Negative) Urine Urobilinogen (0.2) mg/dL Ur Leukocyte Esterase (Negative) U Hyaline Cast (Auto) (0-2) /LPF Urine Microscopic RBC (0-5) /HPF Urine Microscopic WBC (0-5) /HPF Ur Epithelial Cells (None Seen) /HPF Urine Bacteria (None Seen) /HPF Urine Culture Reflexed (NO) Microbiology 12/08/23 16:36 Fungal Culture Result 1 - Final Perirectal Not Reportable Fungal Culture Result 2 - Final Not Reportable Fungal Culture Result 3 - Final Not Reportable Fungal Culture Result 4 - Final Not Reportable Acid Fast Bacilli (AFB) Probe - Final Not Reportable M.tuberculosis Complex DNA Probe - Final Not Reportable Mycobact. avium Complex DNA Probe - Final Not Reportable Mycobacterium kansasii DNA Probe - Final Not Reportable Mycobacterium gordanae DNA Probe - Final Not Reportable Mycobacterium DNA Probe - Final Not Reportable Organism ID (Sequencing) - Final Not Reportable Organism ID (Sequencing 2)(BEN) - Final Not Reportable AFB Susceptibility Testing - Final Not Reportable Accuchecks Date 12/08/23 Time 10:08 - Radiology Impressions Radiology Exams & Impressions: Radiology Procedures Category Date Time Status ABDOMEN AND PELVIS W/0 CONTRAS [CT] Stat Exams 12/08/23 09:57 Completed Assessment/Plan (1) DKA (diabetic ketoacidosis) Current Visit: Yes Status: Acute Assessment & Plan: - Continue DKA protocol with insulin gtt - Monitor labs per protocol - IVF - NPO - Insulin gtt stopped while in surgery- restarted IP. Code(s): E11.10 - TYPE 2 DIABETES MELLITUS WITH KETOACIDOSIS WITHOUT COMA (2) Necrotizing fasciitis Current Visit: Yes Status: Acute Assessment & Plan: - as observed by ER physician - awaiting offical report from Code(s): M72.6 - NECROTIZING FASCIITIS (3) Perianal abscess Current Visit: Yes Status: Acute Assessment & Plan: - IV antibiotocs - surgery today with GS - Cultures pending - WBC 11.6 - BC x2 pending - [place] in place for wound healing in ICU pt. 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 - Hold Plavix x2 days per surgery Code(s): K61.0 - ANAL ABSCESS (4) Uncontrolled type II diabetes mellitus Current Visit: Yes Status: Acute Qualifiers: Glycemic state: with hyperglycemia Qualified Code(s): E11.65 - Type 2 diabetes mellitus with hyperglycemia Assessment & Plan: - A1C > 14 - DKA protocol for now. - NPO for now Code(s): RUN7271 - (5) Obesity (BMI 30.0-34.9) Current Visit: Yes Status: Acute Assessment & Plan: - advised ADA diet and exercise control Code(s): E66.9 - OBESITY, UNSPECIFIED (6) Type 2 diabetes mellitus with diabetic chronic kidney disease Current Visit: No Status: Chronic Qualifiers: Diabetes mellitus python java developer insulin use: with python java developer use Chronic kidney disease stage: stage 3 (moderate) Chronic kidney disease stage 3 subtype: stage 3b (GFR 30-44) Qualified Code(s): E11.22 - Type 2 diabetes mellitus with diabetic chronic kidney disease; N18.32 - Chronic kidney disease, stage 3b; Z79.4 - bariatric physician (current) use of insulin Assessment & Plan: - Creat 1.61 - Baseline 1.30 - IVF VTE: SCD's Next of KIN: Marianna Márquez [phone] D/C plan: 2-3 days Code status: Full Code(s): E11.22 - TYPE 2 DIABETES MELLITUS W DIABETIC CHRONIC KIDNEY DISEASE Telemedicine Encounter - Telemedicine Encounter Telemedicine Encounter: "The entirety of this encounter was performed via Telemedicine" This visit was performed using real-time audio and video connection between my location and thepatients locationwith the assistance of a surrogateat the patients location. Written or verbal consent was obtained from the patient/guardian to perform this visit usingnchrInstraGroktelemedicine technology. Any patient questions regarding the telemedicine interaction were answered. <CHAPINCITO DANIELSON - Last Filed: 12/08/23 20:47> History of Present Illness - Chief Complaint History of Present Illness: is a 63 year old male. - Physical Exam Vital Signs: Vital Signs - 24 hr Temp Pulse Resp BP BP Pulse Ox 12/08/23 20:15 69 12 106/48 99 12/08/23 20:00 68 15 104/52 99 12/08/23 19:45 74 15 107/54 99 12/08/23 19:31 72 15 110/57 99 12/08/23 19:16 70 14 118/69 12/08/23 19:14 99 12/08/23 19:00 69 10 L 104/53 12/08/23 18:56 97.5 F 80 15 111/58 98 12/08/23 18:45 72 14 103/54 12/08/23 18:30 72 13 106/53 99 12/08/23 18:15 67 11 L 112/58 99 12/08/23 18:11 75 10 L 111/58 100 12/08/23 18:10 83 14 100 12/08/23 14:50 149 H 98 12/08/23 14:42 100 12/08/23 14:33 97.8 F 77 20 136/79 98 12/08/23 14:32 98 12/08/23 14:29 97.8 F 77 20 136/79 98 12/08/23 14:00 136/79 100 12/08/23 13:59 99 12/08/23 13:52 98 12/08/23 13:01 141/78 12/08/23 12:31 77 16 116/53 99 12/08/23 12:30 84 14 12/08/23 12:20 86 17 100 12/08/23 12:10 83 16 98 12/08/23 12:00 85 15 12/08/23 11:50 86 16 100 12/08/23 11:40 87 13 99 12/08/23 11:38 100 12/08/23 11:00 94/66 92 L 12/08/23 10:30 109/59 98 12/08/23 10:00 95 H 124/62 100 12/08/23 09:47 98.4 F 107 H 20 127/63 98 12/08/23 09:44 102 H 127/63 98 Results - Labs Lab/Micro Results: Lab Results-Last 24 Hours 12/08/23 12/08/23 12/08/23 Range/Units 09:57 10:05 10:08 WBC 11.6 H (4.23-9.07) x10^3/uL RBC 5.01 (4.63-6.08) x10^6/uL Hgb 13.4 L (13.7-17.5) g/dL Hct 43.1 (40.1-51.0) % MCV 86.0 (79.0-92.2) fL MCH 26.7 (25.7-32.2) pg MCHC 31.1 L (32.3-36.5) g/dL RDW 13.9 (11.6-14.4) % Plt Count 202 (163-337) x10^3/uL MPV 10.8 (9.4-12.4) fL Gran % 82.7 H (34.0-67.9) % Immature Gran % (Auto) 0.4 (0.001-0.429) % Nucleat RBC Rel Count 0.0 (0.00-0.2) % Eos # (Auto) 0 L (0.04-0.54) x10^3/uL Immature Gran # (Auto) 0.05 H (0.001-0.031) x10^3u/L Absolute Lymphs (auto) 0.90 L (1.32-3.57) x10^3/uL Absolute Monos (auto) 1.02 H (0.30-0.82) x10^3/uL Absolute Nucleated RBC 0.00 (0.00-0.012) x10^3u/L Lymphocytes % 7.7 L (21.8-53.1) % Monocytes % 8.8 (5.3-12.2) % Eosinophils % 0.0 L (0.8-7.0) % Basophils % 0.4 (0.2-1.2) % Absolute Granulocytes 9.62 H (1.78-5.38) x10^3/uL Basophils # 0.05 (0.01-0.08) x10^3/uL Puncture Site pCO2 (35-45) mmHg pO2 (75-100) mmHg Base Excess (-2.0-2.0) O2 Saturation (94-100) g/dF ABG pH (7.35-7.45) ABG HCO3 (22-28) ABG O2 Sat (Measured) (95-100) % Junior Test A-a Gradient a/A Ratio Hemoglobin Carboxyhemoglobin (0.0-6.9) % THgb Methemoglobin (1.4-1.5) % Temperature C POC O2 Flow Rate % Sodium (135-145) mmol/L Potassium (3.5-5.1) mmol/L Chloride (98-107) mmol/L Carbon Dioxide (22-30) mmol/L Anion Gap (5-15) MEQ/L BUN (9-20) mg/dL Creatinine (0.66-1.25) mg/dL Estimated GFR ML/MIN Glucose (74-106) mg/dL POC Glucometer 413 H (74 to 106) mg/dL Lactic Acid 2.5 H (0.4-2.0) Calcium (8.4-10.2) mg/dL Phosphorus (2.5-4.5) mg/dL Magnesium (1.6-2.3) mg/dL Total Bilirubin (0.2-1.3) mg/dL AST (17-59) U/L ALT (0-50) U/L Alkaline Phosphatase (38-126) U/L Serum Total Protein (6.3-8.2) g/dL Albumin (3.5-5.0) g/dL Prealbumin (17.6-36.0) mg/dL Urine Color (Yellow) Urine Appearance (Clear) Urine pH (4.6-8.0) Ur Specific [place] (1.005-1.030) Urine Protein (Negative) Urine Glucose (UA) (Negative) mg/dL Urine Ketones (Negative) Urine Blood (Negative) Urine Nitrite (Negative) Urine Bilirubin (Negative) Urine Urobilinogen (0.2) mg/dL Ur Leukocyte Esterase (Negative) U Hyaline Cast (Auto) (0-2) /LPF Urine Microscopic RBC (0-5) /HPF Urine Microscopic WBC (0-5) /HPF Ur Epithelial Cells (None Seen) /HPF Urine Bacteria (None Seen) /HPF Urine Culture Reflexed (NO) 12/08/23 12/08/23 12/08/23 Range/Units 10:08 12:11 12:46 WBC (4.23-9.07) x10^3/uL RBC (4.63-6.08) x10^6/uL Hgb (13.7-17.5) g/dL Hct (40.1-51.0) % MCV (79.0-92.2) fL MCH (25.7-32.2) pg MCHC (32.3-36.5) g/dL RDW (11.6-14.4) % Plt Count (163-337) x10^3/uL MPV (9.4-12.4) fL Gran % (34.0-67.9) % Immature Gran % (Auto) (0.001-0.429) % Nucleat RBC Rel Count (0.00-0.2) % Eos # (Auto) (0.04-0.54) x10^3/uL Immature Gran # (Auto) (0.001-0.031) x10^3u/L Absolute Lymphs (auto) (1.32-3.57) x10^3/uL Absolute Monos (auto) (0.30-0.82) x10^3/uL Absolute Nucleated RBC (0.00-0.012) x10^3u/L Lymphocytes % (21.8-53.1) % Monocytes % (5.3-12.2) % Eosinophils % (0.8-7.0) % Basophils % (0.2-1.2) % Absolute Granulocytes (1.78-5.38) x10^3/uL Basophils # (0.01-0.08) x10^3/uL Puncture Site pCO2 (35-45) mmHg pO2 (75-100) mmHg Base Excess (-2.0-2.0) O2 Saturation (94-100) g/dF ABG pH (7.35-7.45) ABG HCO3 (22-28) ABG O2 Sat (Measured) (95-100) % Junior Test A-a Gradient a/A Ratio Hemoglobin Carboxyhemoglobin (0.0-6.9) % THgb Methemoglobin (1.4-1.5) % Temperature C POC O2 Flow Rate % Sodium 134 L (135-145) mmol/L Potassium 4.9 (3.5-5.1) mmol/L Chloride 96 L (98-107) mmol/L Carbon Dioxide 8 L* (22-30) mmol/L Anion Gap 35.2 H (5-15) MEQ/L BUN 36 H (9-20) mg/dL Creatinine 1.90 H (0.66-1.25) mg/dL Estimated GFR 38.9 ML/MIN Glucose 459 H (74-106) mg/dL POC Glucometer (74 to 106) mg/dL Lactic Acid 1.8 (0.4-2.0) Calcium 9.8 (8.4-10.2) mg/dL Phosphorus (2.5-4.5) mg/dL Magnesium (1.6-2.3) mg/dL Total Bilirubin 1.00 (0.2-1.3) mg/dL AST 19 (17-59) U/L ALT 21 (0-50) U/L Alkaline Phosphatase 140 H (38-126) U/L Serum Total Protein 7.4 (6.3-8.2) g/dL Albumin 4.2 (3.5-5.0) g/dL Prealbumin (17.6-36.0) mg/dL Urine Color Yellow (Yellow) Urine Appearance Clear (Clear) Urine pH 5.0 (4.6-8.0) Ur Specific [place] 1.020 (1.005-1.030) Urine Protein 30 (Negative) Urine Glucose (UA) >=1000 A (Negative) mg/dL Urine Ketones >=160 A (Negative) Urine Blood Negative (Negative) Urine Nitrite Negative (Negative) Urine Bilirubin Negative (Negative) Urine Urobilinogen 0.2 (0.2) mg/dL Ur Leukocyte Esterase Negative (Negative) U Hyaline Cast (Auto) 3-5 A (0-2) /LPF Urine Microscopic RBC 0-2 (0-5) /HPF Urine Microscopic WBC 0-2 (0-5) /HPF Ur Epithelial Cells None Seen (None Seen) /HPF Urine Bacteria None Seen (None Seen) /HPF Urine Culture Reflexed NO (NO) 12/08/23 12/08/23 12/08/23 Range/Units 13:45 14:02 15:03 WBC (4.23-9.07) x10^3/uL RBC (4.63-6.08) x10^6/uL Hgb (13.7-17.5) g/dL Hct (40.1-51.0) % MCV (79.0-92.2) fL MCH (25.7-32.2) pg MCHC (32.3-36.5) g/dL RDW (11.6-14.4) % Plt Count (163-337) x10^3/uL MPV (9.4-12.4) fL Gran % (34.0-67.9) % Immature Gran % (Auto) (0.001-0.429) % Nucleat RBC Rel Count (0.00-0.2) % Eos # (Auto) (0.04-0.54) x10^3/uL Immature Gran # (Auto) (0.001-0.031) x10^3u/L Absolute Lymphs (auto) (1.32-3.57) x10^3/uL Absolute Monos (auto) (0.30-0.82) x10^3/uL Absolute Nucleated RBC (0.00-0.012) x10^3u/L Lymphocytes % (21.8-53.1) % Monocytes % (5.3-12.2) % Eosinophils % (0.8-7.0) % Basophils % (0.2-1.2) % Absolute Granulocytes (1.78-5.38) x10^3/uL Basophils # (0.01-0.08) x10^3/uL Puncture Site Pending pCO2 21 L (35-45) mmHg pO2 100 (75-100) mmHg Base Excess -16.8 L (-2.0-2.0) O2 Saturation 96.6 (94-100) g/dF ABG pH 7.23 L* (7.35-7.45) ABG HCO3 8.8 L* (22-28) ABG O2 Sat (Measured) 98.2 (95-100) % Junior Test Pending A-a Gradient 23 a/A Ratio 0.81 Hemoglobin 12.9 Carboxyhemoglobin 0.6 (0.0-6.9) % THgb Methemoglobin 1.1 L (1.4-1.5) % Temperature 37.0 C POC O2 Flow Rate 21 % Sodium 135 (135-145) mmol/L Potassium 5.0 5.1 (3.5-5.1) mmol/L Chloride 100 (98-107) mmol/L Carbon Dioxide 8 L* (22-30) mmol/L Anion Gap 32.3 H (5-15) MEQ/L BUN 37 H (9-20) mg/dL Creatinine 1.61 H (0.66-1.25) mg/dL Estimated GFR 47.5 ML/MIN Glucose 413 H (74-106) mg/dL POC Glucometer 348 H (74 to 106) mg/dL Lactic Acid (0.4-2.0) Calcium 9.1 (8.4-10.2) mg/dL Phosphorus (2.5-4.5) mg/dL Magnesium (1.6-2.3) mg/dL Total Bilirubin (0.2-1.3) mg/dL AST (17-59) U/L ALT (0-50) U/L Alkaline Phosphatase (38-126) U/L Serum Total Protein (6.3-8.2) g/dL Albumin (3.5-5.0) g/dL Prealbumin (17.6-36.0) mg/dL Urine Color (Yellow) Urine Appearance (Clear) Urine pH (4.6-8.0) Ur Specific [place] (1.005-1.030) Urine Protein (Negative) Urine Glucose (UA) (Negative) mg/dL Urine Ketones (Negative) Urine Blood (Negative) Urine Nitrite (Negative) Urine Bilirubin (Negative) Urine Urobilinogen (0.2) mg/dL Ur Leukocyte Esterase (Negative) U Hyaline Cast (Auto) (0-2) /LPF Urine Microscopic RBC (0-5) /HPF Urine Microscopic WBC (0-5) /HPF Ur Epithelial Cells (None Seen) /HPF Urine Bacteria (None Seen) /HPF Urine Culture Reflexed (NO) 12/08/23 12/08/23 12/08/23 Range/Units 16:36 17:19 18:17 WBC (4.23-9.07) x10^3/uL RBC (4.63-6.08) x10^6/uL Hgb (13.7-17.5) g/dL Hct (40.1-51.0) % MCV (79.0-92.2) fL MCH (25.7-32.2) pg MCHC (32.3-36.5) g/dL RDW (11.6-14.4) % Plt Count (163-337) x10^3/uL MPV (9.4-12.4) fL Gran % (34.0-67.9) % Immature Gran % (Auto) (0.001-0.429) % Nucleat RBC Rel Count (0.00-0.2) % Eos # (Auto) (0.04-0.54) x10^3/uL Immature Gran # (Auto) (0.001-0.031) x10^3u/L Absolute Lymphs (auto) (1.32-3.57) x10^3/uL Absolute Monos (auto) (0.30-0.82) x10^3/uL Absolute Nucleated RBC (0.00-0.012) x10^3u/L Lymphocytes % (21.8-53.1) % Monocytes % (5.3-12.2) % Eosinophils % (0.8-7.0) % Basophils % (0.2-1.2) % Absolute Granulocytes (1.78-5.38) x10^3/uL Basophils # (0.01-0.08) x10^3/uL Puncture Site pCO2 (35-45) mmHg pO2 (75-100) mmHg Base Excess (-2.0-2.0) O2 Saturation (94-100) g/dF ABG pH (7.35-7.45) ABG HCO3 (22-28) ABG O2 Sat (Measured) (95-100) % Junior Test A-a Gradient a/A Ratio Hemoglobin Carboxyhemoglobin (0.0-6.9) % THgb Methemoglobin (1.4-1.5) % Temperature C POC O2 Flow Rate % Sodium (135-145) mmol/L Potassium (3.5-5.1) mmol/L Chloride (98-107) mmol/L Carbon Dioxide (22-30) mmol/L Anion Gap (5-15) MEQ/L BUN (9-20) mg/dL Creatinine (0.66-1.25) mg/dL Estimated GFR ML/MIN Glucose (74-106) mg/dL POC Glucometer 320 H 340 H (74 to 106) mg/dL Lactic Acid (0.4-2.0) Calcium (8.4-10.2) mg/dL Phosphorus (2.5-4.5) mg/dL Magnesium (1.6-2.3) mg/dL Total Bilirubin (0.2-1.3) mg/dL AST (17-59) U/L ALT (0-50) U/L Alkaline Phosphatase (38-126) U/L Serum Total Protein (6.3-8.2) g/dL Albumin (3.5-5.0) g/dL Prealbumin (17.6-36.0) mg/dL Urine Color Yellow (Yellow) Urine Appearance Clear (Clear) Urine pH 5.0 (4.6-8.0) Ur Specific [place] 1.015 (1.005-1.030) Urine Protein Trace A (Negative) Urine Glucose (UA) >=1000 A (Negative) mg/dL Urine Ketones 80 A (Negative) Urine Blood Trace (Negative) Urine Nitrite Negative (Negative) Urine Bilirubin Negative (Negative) Urine Urobilinogen 0.2 (0.2) mg/dL Ur Leukocyte Esterase Negative (Negative) U Hyaline Cast (Auto) 6-10 A (0-2) /LPF Urine Microscopic RBC 0-2 (0-5) /HPF Urine Microscopic WBC 0-2 (0-5) /HPF Ur Epithelial Cells None Seen (None Seen) /HPF Urine Bacteria None Seen (None Seen) /HPF Urine Culture Reflexed (NO) 12/08/23 12/08/23 12/08/23 Range/Units 19:00 19:05 20:03 WBC (4.23-9.07) x10^3/uL RBC (4.63-6.08) x10^6/uL Hgb (13.7-17.5) g/dL Hct (40.1-51.0) % MCV (79.0-92.2) fL MCH (25.7-32.2) pg MCHC (32.3-36.5) g/dL RDW (11.6-14.4) % Plt Count (163-337) x10^3/uL MPV (9.4-12.4) fL Gran % (34.0-67.9) % Immature Gran % (Auto) (0.001-0.429) % Nucleat RBC Rel Count (0.00-0.2) % Eos # (Auto) (0.04-0.54) x10^3/uL Immature Gran # (Auto) (0.001-0.031) x10^3u/L Absolute Lymphs (auto) (1.32-3.57) x10^3/uL Absolute Monos (auto) (0.30-0.82) x10^3/uL Absolute Nucleated RBC (0.00-0.012) x10^3u/L Lymphocytes % (21.8-53.1) % Monocytes % (5.3-12.2) % Eosinophils % (0.8-7.0) % Basophils % (0.2-1.2) % Absolute Granulocytes (1.78-5.38) x10^3/uL Basophils # (0.01-0.08) x10^3/uL Puncture Site pCO2 (35-45) mmHg pO2 (75-100) mmHg Base Excess (-2.0-2.0) O2 Saturation (94-100) g/dF ABG pH (7.35-7.45) ABG HCO3 (22-28) ABG O2 Sat (Measured) (95-100) % Junior Test A-a Gradient a/A Ratio Hemoglobin Carboxyhemoglobin (0.0-6.9) % THgb Methemoglobin (1.4-1.5) % Temperature C POC O2 Flow Rate % Sodium 136 (135-145) mmol/L Potassium 4.2 (3.5-5.1) mmol/L Chloride 107 (98-107) mmol/L Carbon Dioxide 11 L* (22-30) mmol/L Anion Gap 22.5 H (5-15) MEQ/L BUN 35 H (9-20) mg/dL Creatinine 1.33 H (0.66-1.25) mg/dL Estimated GFR 59.7 ML/MIN Glucose 284 H (74-106) mg/dL POC Glucometer 252 H (74 to 106) mg/dL Lactic Acid (0.4-2.0) Calcium 8.2 L (8.4-10.2) mg/dL Phosphorus 3.1 (2.5-4.5) mg/dL Magnesium 2.3 (1.6-2.3) mg/dL Total Bilirubin (0.2-1.3) mg/dL AST (17-59) U/L ALT (0-50) U/L Alkaline Phosphatase (38-126) U/L Serum Total Protein (6.3-8.2) g/dL Albumin (3.5-5.0) g/dL Prealbumin 5.27 L (17.6-36.0) mg/dL Urine Color (Yellow) Urine Appearance (Clear) Urine pH (4.6-8.0) Ur Specific [place] (1.005-1.030) Urine Protein (Negative) Urine Glucose (UA) (Negative) mg/dL Urine Ketones (Negative) Urine Blood (Negative) Urine Nitrite (Negative) Urine Bilirubin (Negative) Urine Urobilinogen (0.2) mg/dL Ur Leukocyte Esterase (Negative) U Hyaline Cast (Auto) (0-2) /LPF Urine Microscopic RBC (0-5) /HPF Urine Microscopic WBC (0-5) /HPF Ur Epithelial Cells (None Seen) /HPF Urine Bacteria (None Seen) /HPF Urine Culture Reflexed (NO) Microbiology 12/08/23 16:36 Fungal Culture Result 1 - Final Perirectal Not Reportable Fungal Culture Result 2 - Final Not Reportable Fungal Culture Result 3 - Final Not Reportable Fungal Culture Result 4 - Final Not Reportable Acid Fast Bacilli (AFB) Probe - Final Not Reportable M.tuberculosis Complex DNA Probe - Final Not Reportable Mycobact. avium Complex DNA Probe - Final Not Reportable Mycobacterium kansasii DNA Probe - Final Not Reportable Mycobacterium gordanae DNA Probe - Final Not Reportable Mycobacterium DNA Probe - Final Not Reportable Organism ID (Sequencing) - Final Not Reportable Organism ID (Sequencing 2)(BEN) - Final Not Reportable AFB Susceptibility Testing - Final Not Reportable Accuchecks Date 12/08/23 Date 12/08/23 Time 18:15 Time 10:08 - Radiology Impressions Radiology Exams & Impressions: Radiology Procedures Category Date Time Status ABDOMEN AND PELVIS W/0 CONTRAS [CT] Stat Exams 12/08/23 09:57 Completed Telemedicine Encounter - Telemedicine Encounter Telemedicine Encounter: "The entirety of this encounter was performed via Telemedicine" This visit was performed using real-time audio and video connection between my location and thepatients locationwith the assistance of a surrogateat the patients location. Written or verbal consent was obtained from the patient/guardian to perform this visit using[employer] technology. Any patient questions regarding the telemedicine interaction were answered. BEHZAD Encounter - BEHZAD Encounter Attestation BEHZAD Encounter Attestation: "IhavepersonallyseenandexaminedBEMENT,SURINDER andhavediscussed pertinent aspects of their care with Shawn Camarillo agree with the history, physical exam (any modifications based on my personal exam will be noted below), assessment, and plan as outlined in original note. Please see immediately below for my summary of findings and additional assessment and plan along with any meaningful corrections/explanations to the Subjective/Objective portions of the BEHZAD note will be noted." My portion of the encounter took place via telemedicine. -Patient had a hospital admission here at [facility] in July of this year at which time several of his diabetes medications, including jardiance and insulin were discontinued. He is now only on Trulicity and that does not seem to be controlling his blood sugars well. Presenting with DKA and perirectal/buttock abscess. Surgery note not available for review at this time but will initiate patient on broad spectrum antibiotic. DKA management with IV insulin, IV fluids and Q6h serum chemistries. Will need to reevaluate DM regimen once off insulin
[2023-12-08] MEDS ORDERED: MYXREDLIN 100 UNIT/100 ML BAG 100 UNIT/100 ML PLAST..BAG IV ONE (18:36)
[2023-12-08] MEDS: MYXREDLIN 100 UNIT/100 ML BAG 100 UNIT/100 ML PLAST..BAG IV PRN (18:39)
[2023-12-08] MEDS ORDERED: NON-FORMULARY ITEM (Evolocumab [Repatha Sureclick] 140 MG/ML Pen.Injctr) SQ SCH (18:45)
[2023-12-08 19:25] LABS: ANION GAP 22.5 MEQ/L (5-15); Calcium 8.2 mg/dL (8.4-10.2); Creatinine 1 1.33 mg/dL (0.66-1.25); EST GLOMERULAR FILTRATION RATE 59.7 ML/MIN; MAGNESIUM 2.3 mg/dL (1.6-2.3); PHOSPHOROUS 3.1 mg/dL (2.5-4.5); Potassium 4.2 mmol/L (3.5-5.1)
[2023-12-08] MEDS: PHARMACY DOSING REQUIRED: VANCOMYCIN IV STA (20:15)
[2023-12-08] MEDS: D5W/0.45NS W/ 20mEq KCl 1000 ML 1,000 ML IV SCH (20:29)
[2023-12-08] MEDS ORDERED: TIMOPTIC 0.5% 5 ML OPHTHALMIC OP ONE (21:32)
[2023-12-08] MEDS ORDERED: D5w 100ML Mini Bag 100 ML 100 ML IV ONE (21:58)
[2023-12-08] MEDS ORDERED: COSOPT OPHTHALMIC 10 ML OP SCH (22:00)
[2023-12-08] MEDS: FLAGYL 500 MG IVPB 500 MG/100 ML BAG IV SCH (22:04)
[2023-12-08] MEDS: COSOPT OPHTHALMIC 10 ML OP SCH (22:04)
[2023-12-08] MEDS: Docusate Sodium 100 MG PO SCH (22:04)
[2023-12-08] MEDS: Maxipime 2 GM** 2 G in Dextrose 5%/Water IV Soln. 100ML PLUS BAG 100 ML IV SCH (22:37)
[2023-12-08 23:37] LABS: ANION GAP 14.3 MEQ/L (5-15); Calcium 8.1 mg/dL (8.4-10.2); Creatinine 1 1.24 mg/dL (0.66-1.25); EST GLOMERULAR FILTRATION RATE 64.9 ML/MIN; Potassium 3.9 mmol/L (3.5-5.1)
[2023-12-09] MEDS: MORPHINE SULFATE 2 MG INJ IV PRN (02:06)
[2023-12-09 03:24] LABS: Hematocrit 33.6 % (40.1-51.0); Hemoglobin 10.6 g/dL (13.7-17.5); Mean Cell Volume 85.7 fL (79.0-92.2); Mean Corpuscular Hgb Concent. 31.5 g/dL (32.3-36.5); Mean Platelet Volume 10.3 fL (9.4-12.4); Platelet Count 142 x10^3/uL (163-337); Red Blood Count 3.92 x10^6/uL (4.63-6.08); White Blood Count 8.9 x10^3/uL (4.23-9.07)
[2023-12-09 03:35] LABS: ALBUMIN 2.9 g/dL (3.5-5.0); ANION GAP 16.6 MEQ/L (5-15); BILIRUBIN,TOTAL 0.6 mg/dL (0.2-1.3); Creatinine 1 1.23 mg/dL (0.66-1.25); EST GLOMERULAR FILTRATION RATE 65.6 ML/MIN; Potassium 4.1 mmol/L (3.5-5.1); Total Protein 5.6 g/dL (6.3-8.2)
[2023-12-09] MEDS: SODIUM BICARBONATE 50 MEQ/50 ML ABBOJECT IV ONE (04:00)
[2023-12-09] MEDS: MYXREDLIN 100 UNIT/100 ML BAG 100 UNIT/100 ML PLAST..BAG IV PRN (04:09)
[2023-12-09] MEDS ORDERED: MEDICATION INTERVENTION MC SCH (07:30)
[2023-12-09] MEDS: D5W/0.45NS W/ 20mEq KCl 1000 ML 1,000 ML IV SCH (07:54)
[2023-12-09 07:55] LABS: ANION GAP 14.8 MEQ/L (5-15); Creatinine 1 1.22 mg/dL (0.66-1.25); EST GLOMERULAR FILTRATION RATE 66.2 ML/MIN; MAGNESIUM 2.3 mg/dL (1.6-2.3); PHOSPHOROUS 1.7 mg/dL (2.5-4.5); Potassium 3.8 mmol/L (3.5-5.1)
[2023-12-09] MEDS: PHARMACY DOSING REQUEST MC ONE (08:40)
[2023-12-09] MEDS: Toprol-Xl 25MG Tablets PO SCH (09:05)
[2023-12-09] MEDS: LASIX 20 MG PO SCH (09:05)
[2023-12-09] MEDS: VANCOMYCIN 1.25 GM/250 ML BAG 1.25 GM/250 ML PIGGYBACK IV SCH (09:05)
[2023-12-09] MEDS: Zestril 20 MG PO SCH (09:11)
[2023-12-09] MEDS ORDERED: NON-FORMULARY ITEM (Lisinopril [Lisinopril] 40 MG Tablet) PO SCH (10:00)
[2023-12-09] MEDS ORDERED: VANCOMYCIN 1 GRAM/200 ML BAG 1 GM/200 ML PIGGYBACK IV SCH (10:00)
[2023-12-09 10:33] LABS: A-aADO2 -20; ABG HEMOGLOBIN 10.9; ABG POTASSIUM 3.8 (3.5-5.1); ABG SITE RIGHT RADIAL; ALLEN TEST OK? YES; ARTERIAL BLD GAS O2 SATURATION 99.2 % (95-100); ARTERIAL BLOOD GAS BASE EXCESS -5.9 (-2.0-2.0); ARTERIAL BLOOD GAS FIO2 21 %; ARTERIAL BLOOD GAS PCO2 32 mmHg (35-45); ARTERIAL BLOOD GAS PO2 130 mmHg (75-100); ARTERIAL BLOOD GAS pH 7.37 (7.35-7.45); CARBOXYHEMOGLOBIN 2.1 % THgb (0.0-6.9); HCO3- 18.5 (22-28); HGB O2 SAT 95.7 g/dF (94-100); Methhemoglobin 1.4 % (1.4-1.5); paO2 pAO1 1.18
[2023-12-09 10:48] LABS: ANION GAP 13.2 MEQ/L (5-15); Calcium 7.7 mg/dL (8.4-10.2); Creatinine 1 1.13 mg/dL (0.66-1.25); EST GLOMERULAR FILTRATION RATE 72.6 ML/MIN; Potassium 3.8 mmol/L (3.5-5.1)
[2023-12-09] MEDS: Neutra-Phos Packet PO SCH (11:25)
[2023-12-09] MEDS: Maxipime 2 GM** 2 G in Dextrose 5%/Water IV Soln. 100ML PLUS BAG 100 ML IV SCH (11:26)
[2023-12-09] MEDS: COSOPT OPHTHALMIC 10 ML OP SCH (11:31)
--- NOTE | 2023-12-09 11:43 | XRAY ---
CLINICAL HISTORY: abd pain, worsening redness abcess COMPARISON: ct 12/08/2023 TECHNIQUE: CT of the pelvis was performed with axial images as well as sagittal and coronal reconstruction images with intravenous contrast. Images were reviewed in soft tissue and bone window settings. One of the following dose-reduction techniques was utilized for this exam. Automated exposure control, adjustment of the mA and/or kV according to patient size, and use of iterative reconstruction. 80 CC Isovue 370 was given as an IV contrast. FINDINGS: Interval soft tissue loss in the left gluteal cleft with mild fat stranding without extraluminal gas locules or a fluid collection or abscess formation. No signs of rectal perforation or fistulous communication Urinary Bladder: Contain a street balloon, Normal in contour and wall thickness. No intraluminal lesions were identified. Prostate: Normal in size and contour. Bowel: The visualized bowel loops are normal in caliber and appearance. No evidence of bowel obstruction or wall thickening. Normal appearing appendix. Bones and Soft Tissues: Pelvic bones are unremarkable. No fractures or abnormal masses were identified. IMPRESSION: Status of post drainage of the former collection, there is Interval soft tissue loss in the left gluteal cleft with mild fat stranding without signs of fluid collection, abscess formation, or significant hemorrhage. the rest of the scan is stable. Electronically Signed by: Juan Mendoza MD. (12/09/2023 11:39:25 EDT)
--- NOTE | 2023-12-09 12:26 | PCM.NOTE ---
Date and Time: 12/09/23 1214 Subjective Assessment: 12/08/23 is a 63 year old male with PMHX of HTN, Type II DM, CABG, and obesity He was seen OP today for labs and found to have leakage from his bottom and referred to the ER. In ER he was found to have a rectal abscess and was in DKA. He was started on an insulin gtt, and antibiotics started. When from ER to OR for surgery of rectal mass and was thought to be necrotizing fascitis per ER note. DKA protocol to be continued IP as well as antibiotics. He is still groggy from surgery. He denies any C/O at this time. 12/09/23 Pt resting in bed on his right side. He was refusing to turn and nursing encouraged him to do so to prevent bed sores. He is POD #1 from surgery of rectal mass with necrotizing fascitis. Nurse feels wound is worse from yesterday with hardening and increased redness of the area. Advised to contact [facility] right away and notify them of findings. C/o lower abd pain this AM, CT Pelvis ordered for further evaluation. Continue IV antibiotics and IVF. WBC count 8.9. Pt remains on an insulin gtt this am. At one point it was turned off and then turned back on. No insulin was given prior to turning off per protocol. Carb consistent diet ordered this morning and stopped before the pt could eat as he should be NPO. Discussed with pt and apologized for the mistake overnight. CO2 13 and anion gap 16.6. Continue insulin gtt per DKA protocol. Phos 1.7 and replaced. Pt states he overall does not feel well. He denies CP, SOB, N/V/D. - Review of Systems Constitutional: Fatigue, Malaise, No Fever, No Chills Eyes: No Symptoms Ears, Nose, & Throat: No Symptoms Respiratory: No Cough, No Short Of Breath Cardiac: No Chest Pain, No Edema, No Syncope Abdominal/Gastrointestinal: Abdominal Pain (lower), No Nausea, No Vomiting, No Diarrhea Genitourinary Symptoms: No Dysuria Musculoskeletal: No Back Pain, No Neck Pain Skin: Other (abcess hal-anal), No Rash Neurological: No Dizziness, No Focal Weakness, No Sensory Changes Psychological: No Symptoms Endocrine: No Symptoms Hematologic/Lymphatic: No Symptoms Immunological/Allergic: No Symptoms Objective Exam General Appearance: no apparent distress, alert, obese Neurologic Exam: alert, oriented x 3, cooperative, normal mood/affect, nml cerebellar function, sensation nml, No motor deficits Skin Exam: normal color, warm, dry Wound Assessment: Skin/Wound Assessment Wound/Incision Assessment Start: 12/08/23 19:51 Text: Status: Active Freq: Q6H Protocol: Document 12/09/23 08:00 [facility] (Rec: 12/09/23 08:52 [facility] [id number]) Wound/Incision Assessment Left Buttock Wound Assessment Shift Assessment Wound Type Incision Wound Stage Non Pressure Wound Dressing Status Reinforced Drainage Amount Large Drainage Description brown/red Drainage Odor Mild Odor General Appearance Reddened,Unapproximated Length (cm) (cm) 9 Width (cm) (cm) 4 Depth (cm) (cm) 6 Wound Bed Greatest Portion Red (Granulation) Surrounding Tissue Bright Red,Indurated Topical Solution/Irrigant Dakins Irrigant Packing Type Gauze Roll Primary Dressing Absorbant Pad Comment dressing reinforced. Wound Photo Photo Taken No Eye Exam: PERRL, EOMI, eyes nml inspection Ears, Nose, Throat Exam: normal ENT inspection, pharynx normal, moist mucous membranes Neck Exam: normal inspection, non-tender, supple, full range of motion Respiratory Exam: normal breath sounds, lungs clear, No respiratory distress Cardiovascular Exam: regular rate/rhythm, normal heart sounds Gastrointestinal/Abdomen Exam: soft, No tenderness, No mass Extremity Exam: normal inspection, normal range of motion Back Exam: normal inspection, normal range of motion, No CVA tenderness, No vertebral tenderness Male Genitalia Exam: deferred Rectal Exam: other (hal- anal abcess, increased redness and hardening, + drainage red/ brown- minimal, pic in chart of wound) Objective Data Vital Signs: Vital Signs - 24 hr Temp Pulse Resp BP BP Pulse Ox 12/09/23 11:01 97.5 F 73 16 121/69 99 12/09/23 10:00 73 17 98/59 97 12/09/23 09:00 76 1 L 92/57 97 12/09/23 08:32 97.1 F 75 1 L 103/46 96 12/09/23 08:02 75 21 91/44 93 L 12/09/23 08:00 76 14 106/49 97 12/09/23 07:00 80 22 82/50 93 L 12/09/23 06:00 78 20 105/46 96 12/09/23 05:00 81 20 99/48 94 L 12/09/23 04:00 98 F 79 14 92/51 96 12/09/23 03:00 84 12 96/47 98 12/09/23 02:00 86 20 103/49 95 12/09/23 01:00 88 23 95/47 96 12/09/23 00:01 86 12/09/23 00:00 97.6 F 84 16 99/48 93 L 12/08/23 23:00 85 14 97/38 92 L 12/08/23 22:30 79 18 114/54 98 12/08/23 22:00 73 17 106/47 98 12/08/23 21:30 70 18 95/46 96 12/08/23 21:00 71 16 103/47 97 12/08/23 20:30 70 11 L 101/50 99 12/08/23 20:15 69 12 106/48 99 12/08/23 20:00 72 15 104/52 99 12/08/23 19:45 74 15 107/54 99 12/08/23 19:31 72 15 110/57 99 12/08/23 19:16 70 14 118/69 12/08/23 19:14 99 12/08/23 19:00 69 10 L 104/53 12/08/23 18:56 97.5 F 80 15 111/58 98 12/08/23 18:45 72 14 103/54 12/08/23 18:30 72 13 106/53 99 12/08/23 18:15 67 11 L 112/58 99 12/08/23 18:11 75 10 L 111/58 100 12/08/23 18:10 83 14 100 12/08/23 14:50 149 H 98 12/08/23 14:42 100 12/08/23 14:33 97.8 F 77 20 136/79 98 12/08/23 14:32 98 12/08/23 14:29 97.8 F 77 20 136/79 98 12/08/23 14:00 136/79 100 12/08/23 13:59 99 12/08/23 13:52 98 12/08/23 13:01 141/78 12/08/23 12:31 77 16 116/53 99 12/08/23 12:30 84 14 12/08/23 12:20 86 17 100 Pain Assessment - Last Documented Pain Intensity 8 Pain Scale Used 0-10 Pain Scale Intake and Output: Intake & Output 12/07/23 12/08/23 12/09/23 12/10/23 11:59 11:59 11:59 11:59 Intake Total 2121 75 Output Total 975 Balance 1146 75 Weight 82.7 kg 88 kg Lab Results: Lab Results-Last 24 Hours 12/08/23 12/08/23 12/08/23 Range/Units 10:08 12:11 12:46 WBC 11.6 H (4.23-9.07) x10^3/uL RBC 5.01 (4.63-6.08) x10^6/uL Hgb 13.4 L (13.7-17.5) g/dL Hct 43.1 (40.1-51.0) % MCV 86.0 (79.0-92.2) fL MCH 26.7 (25.7-32.2) pg MCHC 31.1 L (32.3-36.5) g/dL RDW 13.9 (11.6-14.4) % Plt Count 202 (163-337) x10^3/uL MPV 10.8 (9.4-12.4) fL Gran % 82.7 H (34.0-67.9) % Immature Gran % (Auto) 0.4 (0.001-0.429) % Nucleat RBC Rel Count 0.0 (0.00-0.2) % Eos # (Auto) 0 L (0.04-0.54) x10^3/uL Immature Gran # (Auto) 0.05 H (0.001-0.031) x10^3u/L Absolute Lymphs (auto) 0.90 L (1.32-3.57) x10^3/uL Absolute Monos (auto) 1.02 H (0.30-0.82) x10^3/uL Absolute Nucleated RBC 0.00 (0.00-0.012) x10^3u/L Lymphocytes % 7.7 L (21.8-53.1) % Monocytes % 8.8 (5.3-12.2) % Eosinophils % 0.0 L (0.8-7.0) % Basophils % 0.4 (0.2-1.2) % Absolute Granulocytes 9.62 H (1.78-5.38) x10^3/uL Basophils # 0.05 (0.01-0.08) x10^3/uL Puncture Site pCO2 (35-45) mmHg pO2 (75-100) mmHg Base Excess (-2.0-2.0) O2 Saturation (94-100) g/dF ABG pH (7.35-7.45) ABG HCO3 (22-28) ABG O2 Sat (Measured) (95-100) % Junior Test A-a Gradient a/A Ratio Hemoglobin Carboxyhemoglobin (0.0-6.9) % THgb Methemoglobin (1.4-1.5) % Temperature C POC O2 Flow Rate % Sodium (135-145) mmol/L Potassium (3.5-5.1) mmol/L Chloride (98-107) mmol/L Carbon Dioxide (22-30) mmol/L Anion Gap (5-15) MEQ/L BUN (9-20) mg/dL Creatinine (0.66-1.25) mg/dL Estimated GFR ML/MIN Glucose (74-106) mg/dL POC Glucometer (74 to 106) mg/dL Lactic Acid 1.8 (0.4-2.0) Calcium (8.4-10.2) mg/dL Phosphorus (2.5-4.5) mg/dL Magnesium (1.6-2.3) mg/dL Total Bilirubin (0.2-1.3) mg/dL AST (17-59) U/L ALT (0-50) U/L Alkaline Phosphatase (38-126) U/L Serum Total Protein (6.3-8.2) g/dL Albumin (3.5-5.0) g/dL Prealbumin (17.6-36.0) mg/dL Urine Color Yellow (Yellow) Urine Appearance Clear (Clear) Urine pH 5.0 (4.6-8.0) Ur Specific Mineral 1.020 (1.005-1.030) Urine Protein 30 (Negative) Urine Glucose (UA) >=1000 A (Negative) mg/dL Urine Ketones >=160 A (Negative) Urine Blood Negative (Negative) Urine Nitrite Negative (Negative) Urine Bilirubin Negative (Negative) Urine Urobilinogen 0.2 (0.2) mg/dL Ur Leukocyte Esterase Negative (Negative) U Hyaline Cast (Auto) 3-5 A (0-2) /LPF Urine Microscopic RBC 0-2 (0-5) /HPF Urine Microscopic WBC 0-2 (0-5) /HPF Ur Epithelial Cells None Seen (None Seen) /HPF Urine Bacteria None Seen (None Seen) /HPF Urine Culture Reflexed NO (NO) 12/08/23 12/08/23 12/08/23 Range/Units 13:45 14:02 15:03 WBC (4.23-9.07) x10^3/uL RBC (4.63-6.08) x10^6/uL Hgb (13.7-17.5) g/dL Hct (40.1-51.0) % MCV (79.0-92.2) fL MCH (25.7-32.2) pg MCHC (32.3-36.5) g/dL RDW (11.6-14.4) % Plt Count (163-337) x10^3/uL MPV (9.4-12.4) fL Gran % (34.0-67.9) % Immature Gran % (Auto) (0.001-0.429) % Nucleat RBC Rel Count (0.00-0.2) % Eos # (Auto) (0.04-0.54) x10^3/uL Immature Gran # (Auto) (0.001-0.031) x10^3u/L Absolute Lymphs (auto) (1.32-3.57) x10^3/uL Absolute Monos (auto) (0.30-0.82) x10^3/uL Absolute Nucleated RBC (0.00-0.012) x10^3u/L Lymphocytes % (21.8-53.1) % Monocytes % (5.3-12.2) % Eosinophils % (0.8-7.0) % Basophils % (0.2-1.2) % Absolute Granulocytes (1.78-5.38) x10^3/uL Basophils # (0.01-0.08) x10^3/uL Puncture Site Pending pCO2 21 L (35-45) mmHg pO2 100 (75-100) mmHg Base Excess -16.8 L (-2.0-2.0) O2 Saturation 96.6 (94-100) g/dF ABG pH 7.23 L* (7.35-7.45) ABG HCO3 8.8 L* (22-28) ABG O2 Sat (Measured) 98.2 (95-100) % Junior Test Pending A-a Gradient 23 a/A Ratio 0.81 Hemoglobin 12.9 Carboxyhemoglobin 0.6 (0.0-6.9) % THgb Methemoglobin 1.1 L (1.4-1.5) % Temperature 37.0 C POC O2 Flow Rate 21 % Sodium 135 (135-145) mmol/L Potassium 5.0 5.1 (3.5-5.1) mmol/L Chloride 100 (98-107) mmol/L Carbon Dioxide 8 L* (22-30) mmol/L Anion Gap 32.3 H (5-15) MEQ/L BUN 37 H (9-20) mg/dL Creatinine 1.61 H (0.66-1.25) mg/dL Estimated GFR 47.5 ML/MIN Glucose 413 H (74-106) mg/dL POC Glucometer 348 H (74 to 106) mg/dL Lactic Acid (0.4-2.0) Calcium 9.1 (8.4-10.2) mg/dL Phosphorus (2.5-4.5) mg/dL Magnesium (1.6-2.3) mg/dL Total Bilirubin (0.2-1.3) mg/dL AST (17-59) U/L ALT (0-50) U/L Alkaline Phosphatase (38-126) U/L Serum Total Protein (6.3-8.2) g/dL Albumin (3.5-5.0) g/dL Prealbumin (17.6-36.0) mg/dL Urine Color (Yellow) Urine Appearance (Clear) Urine pH (4.6-8.0) Ur Specific Mineral (1.005-1.030) Urine Protein (Negative) Urine Glucose (UA) (Negative) mg/dL Urine Ketones (Negative) Urine Blood (Negative) Urine Nitrite (Negative) Urine Bilirubin (Negative) Urine Urobilinogen (0.2) mg/dL Ur Leukocyte Esterase (Negative) U Hyaline Cast (Auto) (0-2) /LPF Urine Microscopic RBC (0-5) /HPF Urine Microscopic WBC (0-5) /HPF Ur Epithelial Cells (None Seen) /HPF Urine Bacteria (None Seen) /HPF Urine Culture Reflexed (NO) 12/08/23 12/08/23 12/08/23 Range/Units 16:36 17:19 18:17 WBC (4.23-9.07) x10^3/uL RBC (4.63-6.08) x10^6/uL Hgb (13.7-17.5) g/dL Hct (40.1-51.0) % MCV (79.0-92.2) fL MCH (25.7-32.2) pg MCHC (32.3-36.5) g/dL RDW (11.6-14.4) % Plt Count (163-337) x10^3/uL MPV (9.4-12.4) fL Gran % (34.0-67.9) % Immature Gran % (Auto) (0.001-0.429) % Nucleat RBC Rel Count (0.00-0.2) % Eos # (Auto) (0.04-0.54) x10^3/uL Immature Gran # (Auto) (0.001-0.031) x10^3u/L Absolute Lymphs (auto) (1.32-3.57) x10^3/uL Absolute Monos (auto) (0.30-0.82) x10^3/uL Absolute Nucleated RBC (0.00-0.012) x10^3u/L Lymphocytes % (21.8-53.1) % Monocytes % (5.3-12.2) % Eosinophils % (0.8-7.0) % Basophils % (0.2-1.2) % Absolute Granulocytes (1.78-5.38) x10^3/uL Basophils # (0.01-0.08) x10^3/uL Puncture Site pCO2 (35-45) mmHg pO2 (75-100) mmHg Base Excess (-2.0-2.0) O2 Saturation (94-100) g/dF ABG pH (7.35-7.45) ABG HCO3 (22-28) ABG O2 Sat (Measured) (95-100) % Junior Test A-a Gradient a/A Ratio Hemoglobin Carboxyhemoglobin (0.0-6.9) % THgb Methemoglobin (1.4-1.5) % Temperature C POC O2 Flow Rate % Sodium (135-145) mmol/L Potassium (3.5-5.1) mmol/L Chloride (98-107) mmol/L Carbon Dioxide (22-30) mmol/L Anion Gap (5-15) MEQ/L BUN (9-20) mg/dL Creatinine (0.66-1.25) mg/dL Estimated GFR ML/MIN Glucose (74-106) mg/dL POC Glucometer 320 H 340 H (74 to 106) mg/dL Lactic Acid (0.4-2.0) Calcium (8.4-10.2) mg/dL Phosphorus (2.5-4.5) mg/dL Magnesium (1.6-2.3) mg/dL Total Bilirubin (0.2-1.3) mg/dL AST (17-59) U/L ALT (0-50) U/L Alkaline Phosphatase (38-126) U/L Serum Total Protein (6.3-8.2) g/dL Albumin (3.5-5.0) g/dL Prealbumin (17.6-36.0) mg/dL Urine Color Yellow (Yellow) Urine Appearance Clear (Clear) Urine pH 5.0 (4.6-8.0) Ur Specific Mineral 1.015 (1.005-1.030) Urine Protein Trace A (Negative) Urine Glucose (UA) >=1000 A (Negative) mg/dL Urine Ketones 80 A (Negative) Urine Blood Trace (Negative) Urine Nitrite Negative (Negative) Urine Bilirubin Negative (Negative) Urine Urobilinogen 0.2 (0.2) mg/dL Ur Leukocyte Esterase Negative (Negative) U Hyaline Cast (Auto) 6-10 A (0-2) /LPF Urine Microscopic RBC 0-2 (0-5) /HPF Urine Microscopic WBC 0-2 (0-5) /HPF Ur Epithelial Cells None Seen (None Seen) /HPF Urine Bacteria None Seen (None Seen) /HPF Urine Culture Reflexed (NO) 12/08/23 12/08/23 12/08/23 Range/Units 19:00 19:05 20:03 WBC (4.23-9.07) x10^3/uL RBC (4.63-6.08) x10^6/uL Hgb (13.7-17.5) g/dL Hct (40.1-51.0) % MCV (79.0-92.2) fL MCH (25.7-32.2) pg MCHC (32.3-36.5) g/dL RDW (11.6-14.4) % Plt Count (163-337) x10^3/uL MPV (9.4-12.4) fL Gran % (34.0-67.9) % Immature Gran % (Auto) (0.001-0.429) % Nucleat RBC Rel Count (0.00-0.2) % Eos # (Auto) (0.04-0.54) x10^3/uL Immature Gran # (Auto) (0.001-0.031) x10^3u/L Absolute Lymphs (auto) (1.32-3.57) x10^3/uL Absolute Monos (auto) (0.30-0.82) x10^3/uL Absolute Nucleated RBC (0.00-0.012) x10^3u/L Lymphocytes % (21.8-53.1) % Monocytes % (5.3-12.2) % Eosinophils % (0.8-7.0) % Basophils % (0.2-1.2) % Absolute Granulocytes (1.78-5.38) x10^3/uL Basophils # (0.01-0.08) x10^3/uL Puncture Site pCO2 (35-45) mmHg pO2 (75-100) mmHg Base Excess (-2.0-2.0) O2 Saturation (94-100) g/dF ABG pH (7.35-7.45) ABG HCO3 (22-28) ABG O2 Sat (Measured) (95-100) % Junior Test A-a Gradient a/A Ratio Hemoglobin Carboxyhemoglobin (0.0-6.9) % THgb Methemoglobin (1.4-1.5) % Temperature C POC O2 Flow Rate % Sodium 136 (135-145) mmol/L Potassium 4.2 (3.5-5.1) mmol/L Chloride 107 (98-107) mmol/L Carbon Dioxide 11 L* (22-30) mmol/L Anion Gap 22.5 H (5-15) MEQ/L BUN 35 H (9-20) mg/dL Creatinine 1.33 H (0.66-1.25) mg/dL Estimated GFR 59.7 ML/MIN Glucose 284 H (74-106) mg/dL POC Glucometer 252 H (74 to 106) mg/dL Lactic Acid (0.4-2.0) Calcium 8.2 L (8.4-10.2) mg/dL Phosphorus 3.1 (2.5-4.5) mg/dL Magnesium 2.3 (1.6-2.3) mg/dL Total Bilirubin (0.2-1.3) mg/dL AST (17-59) U/L ALT (0-50) U/L Alkaline Phosphatase (38-126) U/L Serum Total Protein (6.3-8.2) g/dL Albumin (3.5-5.0) g/dL Prealbumin 5.27 L (17.6-36.0) mg/dL Urine Color (Yellow) Urine Appearance (Clear) Urine pH (4.6-8.0) Ur Specific Mineral (1.005-1.030) Urine Protein (Negative) Urine Glucose (UA) (Negative) mg/dL Urine Ketones (Negative) Urine Blood (Negative) Urine Nitrite (Negative) Urine Bilirubin (Negative) Urine Urobilinogen (0.2) mg/dL Ur Leukocyte Esterase (Negative) U Hyaline Cast (Auto) (0-2) /LPF Urine Microscopic RBC (0-5) /HPF Urine Microscopic WBC (0-5) /HPF Ur Epithelial Cells (None Seen) /HPF Urine Bacteria (None Seen) /HPF Urine Culture Reflexed (NO) 12/08/23 12/08/23 12/08/23 Range/Units 20:56 22:03 22:59 WBC (4.23-9.07) x10^3/uL RBC (4.63-6.08) x10^6/uL Hgb (13.7-17.5) g/dL Hct (40.1-51.0) % MCV (79.0-92.2) fL MCH (25.7-32.2) pg MCHC (32.3-36.5) g/dL RDW (11.6-14.4) % Plt Count (163-337) x10^3/uL MPV (9.4-12.4) fL Gran % (34.0-67.9) % Immature Gran % (Auto) (0.001-0.429) % Nucleat RBC Rel Count (0.00-0.2) % Eos # (Auto) (0.04-0.54) x10^3/uL Immature Gran # (Auto) (0.001-0.031) x10^3u/L Absolute Lymphs (auto) (1.32-3.57) x10^3/uL Absolute Monos (auto) (0.30-0.82) x10^3/uL Absolute Nucleated RBC (0.00-0.012) x10^3u/L Lymphocytes % (21.8-53.1) % Monocytes % (5.3-12.2) % Eosinophils % (0.8-7.0) % Basophils % (0.2-1.2) % Absolute Granulocytes (1.78-5.38) x10^3/uL Basophils # (0.01-0.08) x10^3/uL Puncture Site pCO2 (35-45) mmHg pO2 (75-100) mmHg Base Excess (-2.0-2.0) O2 Saturation (94-100) g/dF ABG pH (7.35-7.45) ABG HCO3 (22-28) ABG O2 Sat (Measured) (95-100) % Junior Test A-a Gradient a/A Ratio Hemoglobin Carboxyhemoglobin (0.0-6.9) % THgb Methemoglobin (1.4-1.5) % Temperature C POC O2 Flow Rate % Sodium (135-145) mmol/L Potassium (3.5-5.1) mmol/L Chloride (98-107) mmol/L Carbon Dioxide (22-30) mmol/L Anion Gap (5-15) MEQ/L BUN (9-20) mg/dL Creatinine (0.66-1.25) mg/dL Estimated GFR ML/MIN Glucose (74-106) mg/dL POC Glucometer 255 H 210 H 187 H (74 to 106) mg/dL Lactic Acid (0.4-2.0) Calcium (8.4-10.2) mg/dL Phosphorus (2.5-4.5) mg/dL Magnesium (1.6-2.3) mg/dL Total Bilirubin (0.2-1.3) mg/dL AST (17-59) U/L ALT (0-50) U/L Alkaline Phosphatase (38-126) U/L Serum Total Protein (6.3-8.2) g/dL Albumin (3.5-5.0) g/dL Prealbumin (17.6-36.0) mg/dL Urine Color (Yellow) Urine Appearance (Clear) Urine pH (4.6-8.0) Ur Specific Mineral (1.005-1.030) Urine Protein (Negative) Urine Glucose (UA) (Negative) mg/dL Urine Ketones (Negative) Urine Blood (Negative) Urine Nitrite (Negative) Urine Bilirubin (Negative) Urine Urobilinogen (0.2) mg/dL Ur Leukocyte Esterase (Negative) U Hyaline Cast (Auto) (0-2) /LPF Urine Microscopic RBC (0-5) /HPF Urine Microscopic WBC (0-5) /HPF Ur Epithelial Cells (None Seen) /HPF Urine Bacteria (None Seen) /HPF Urine Culture Reflexed (NO) 12/08/23 12/09/23 12/09/23 Range/Units 23:22 03:20 03:20 WBC 8.9 (4.23-9.07) x10^3/uL RBC 3.92 L (4.63-6.08) x10^6/uL Hgb 10.6 L D (13.7-17.5) g/dL Hct 33.6 L (40.1-51.0) % MCV 85.7 (79.0-92.2) fL MCH 27.0 (25.7-32.2) pg MCHC 31.5 L (32.3-36.5) g/dL RDW 14.0 (11.6-14.4) % Plt Count 142 L (163-337) x10^3/uL MPV 10.3 (9.4-12.4) fL Gran % (34.0-67.9) % Immature Gran % (Auto) (0.001-0.429) % Nucleat RBC Rel Count (0.00-0.2) % Eos # (Auto) (0.04-0.54) x10^3/uL Immature Gran # (Auto) (0.001-0.031) x10^3u/L Absolute Lymphs (auto) (1.32-3.57) x10^3/uL Absolute Monos (auto) (0.30-0.82) x10^3/uL Absolute Nucleated RBC (0.00-0.012) x10^3u/L Lymphocytes % (21.8-53.1) % Monocytes % (5.3-12.2) % Eosinophils % (0.8-7.0) % Basophils % (0.2-1.2) % Absolute Granulocytes (1.78-5.38) x10^3/uL Basophils # (0.01-0.08) x10^3/uL Puncture Site pCO2 (35-45) mmHg pO2 (75-100) mmHg Base Excess (-2.0-2.0) O2 Saturation (94-100) g/dF ABG pH (7.35-7.45) ABG HCO3 (22-28) ABG O2 Sat (Measured) (95-100) % Junior Test A-a Gradient a/A Ratio Hemoglobin Carboxyhemoglobin (0.0-6.9) % THgb Methemoglobin (1.4-1.5) % Temperature C POC O2 Flow Rate % Sodium 135 134 L (135-145) mmol/L Potassium 3.9 4.1 (3.5-5.1) mmol/L Chloride 106 108 H (98-107) mmol/L Carbon Dioxide 19 L 13 L* (22-30) mmol/L Anion Gap 14.3 16.6 H (5-15) MEQ/L BUN 33 H 30 H (9-20) mg/dL Creatinine 1.24 1.23 (0.66-1.25) mg/dL Estimated GFR 64.9 65.6 ML/MIN Glucose 183 H 207 H (74-106) mg/dL POC Glucometer (74 to 106) mg/dL Lactic Acid (0.4-2.0) Calcium 8.1 L 8.0 L (8.4-10.2) mg/dL Phosphorus (2.5-4.5) mg/dL Magnesium (1.6-2.3) mg/dL Total Bilirubin 0.60 (0.2-1.3) mg/dL AST 18 (17-59) U/L ALT 11 (0-50) U/L Alkaline Phosphatase 97 (38-126) U/L Serum Total Protein 5.6 L (6.3-8.2) g/dL Albumin 2.9 L (3.5-5.0) g/dL Prealbumin (17.6-36.0) mg/dL Urine Color (Yellow) Urine Appearance (Clear) Urine pH (4.6-8.0) Ur Specific Mineral (1.005-1.030) Urine Protein (Negative) Urine Glucose (UA) (Negative) mg/dL Urine Ketones (Negative) Urine Blood (Negative) Urine Nitrite (Negative) Urine Bilirubin (Negative) Urine Urobilinogen (0.2) mg/dL Ur Leukocyte Esterase (Negative) U Hyaline Cast (Auto) (0-2) /LPF Urine Microscopic RBC (0-5) /HPF Urine Microscopic WBC (0-5) /HPF Ur Epithelial Cells (None Seen) /HPF Urine Bacteria (None Seen) /HPF Urine Culture Reflexed (NO) 12/09/23 12/09/23 12/09/23 Range/Units 05:00 06:00 06:51 WBC (4.23-9.07) x10^3/uL RBC (4.63-6.08) x10^6/uL Hgb (13.7-17.5) g/dL Hct (40.1-51.0) % MCV (79.0-92.2) fL MCH (25.7-32.2) pg MCHC (32.3-36.5) g/dL RDW (11.6-14.4) % Plt Count (163-337) x10^3/uL MPV (9.4-12.4) fL Gran % (34.0-67.9) % Immature Gran % (Auto) (0.001-0.429) % Nucleat RBC Rel Count (0.00-0.2) % Eos # (Auto) (0.04-0.54) x10^3/uL Immature Gran # (Auto) (0.001-0.031) x10^3u/L Absolute Lymphs (auto) (1.32-3.57) x10^3/uL Absolute Monos (auto) (0.30-0.82) x10^3/uL Absolute Nucleated RBC (0.00-0.012) x10^3u/L Lymphocytes % (21.8-53.1) % Monocytes % (5.3-12.2) % Eosinophils % (0.8-7.0) % Basophils % (0.2-1.2) % Absolute Granulocytes (1.78-5.38) x10^3/uL Basophils # (0.01-0.08) x10^3/uL Puncture Site pCO2 (35-45) mmHg pO2 (75-100) mmHg Base Excess (-2.0-2.0) O2 Saturation (94-100) g/dF ABG pH (7.35-7.45) ABG HCO3 (22-28) ABG O2 Sat (Measured) (95-100) % Junior Test A-a Gradient a/A Ratio Hemoglobin Carboxyhemoglobin (0.0-6.9) % THgb Methemoglobin (1.4-1.5) % Temperature C POC O2 Flow Rate % Sodium (135-145) mmol/L Potassium (3.5-5.1) mmol/L Chloride (98-107) mmol/L Carbon Dioxide (22-30) mmol/L Anion Gap (5-15) MEQ/L BUN (9-20) mg/dL Creatinine (0.66-1.25) mg/dL Estimated GFR ML/MIN Glucose (74-106) mg/dL POC Glucometer 271 H 242 H 244 H (74 to 106) mg/dL Lactic Acid (0.4-2.0) Calcium (8.4-10.2) mg/dL Phosphorus (2.5-4.5) mg/dL Magnesium (1.6-2.3) mg/dL Total Bilirubin (0.2-1.3) mg/dL AST (17-59) U/L ALT (0-50) U/L Alkaline Phosphatase (38-126) U/L Serum Total Protein (6.3-8.2) g/dL Albumin (3.5-5.0) g/dL Prealbumin (17.6-36.0) mg/dL Urine Color (Yellow) Urine Appearance (Clear) Urine pH (4.6-8.0) Ur Specific Mineral (1.005-1.030) Urine Protein (Negative) Urine Glucose (UA) (Negative) mg/dL Urine Ketones (Negative) Urine Blood (Negative) Urine Nitrite (Negative) Urine Bilirubin (Negative) Urine Urobilinogen (0.2) mg/dL Ur Leukocyte Esterase (Negative) U Hyaline Cast (Auto) (0-2) /LPF Urine Microscopic RBC (0-5) /HPF Urine Microscopic WBC (0-5) /HPF Ur Epithelial Cells (None Seen) /HPF Urine Bacteria (None Seen) /HPF Urine Culture Reflexed (NO) 12/09/23 12/09/23 12/09/23 Range/Units 07:12 07:45 08:46 WBC (4.23-9.07) x10^3/uL RBC (4.63-6.08) x10^6/uL Hgb (13.7-17.5) g/dL Hct (40.1-51.0) % MCV (79.0-92.2) fL MCH (25.7-32.2) pg MCHC (32.3-36.5) g/dL RDW (11.6-14.4) % Plt Count (163-337) x10^3/uL MPV (9.4-12.4) fL Gran % (34.0-67.9) % Immature Gran % (Auto) (0.001-0.429) % Nucleat RBC Rel Count (0.00-0.2) % Eos # (Auto) (0.04-0.54) x10^3/uL Immature Gran # (Auto) (0.001-0.031) x10^3u/L Absolute Lymphs (auto) (1.32-3.57) x10^3/uL Absolute Monos (auto) (0.30-0.82) x10^3/uL Absolute Nucleated RBC (0.00-0.012) x10^3u/L Lymphocytes % (21.8-53.1) % Monocytes % (5.3-12.2) % Eosinophils % (0.8-7.0) % Basophils % (0.2-1.2) % Absolute Granulocytes (1.78-5.38) x10^3/uL Basophils # (0.01-0.08) x10^3/uL Puncture Site pCO2 (35-45) mmHg pO2 (75-100) mmHg Base Excess (-2.0-2.0) O2 Saturation (94-100) g/dF ABG pH (7.35-7.45) ABG HCO3 (22-28) ABG O2 Sat (Measured) (95-100) % Junior Test A-a Gradient a/A Ratio Hemoglobin Carboxyhemoglobin (0.0-6.9) % THgb Methemoglobin (1.4-1.5) % Temperature C POC O2 Flow Rate % Sodium 134 L (135-145) mmol/L Potassium 3.8 (3.5-5.1) mmol/L Chloride 108 H (98-107) mmol/L Carbon Dioxide 15 L* (22-30) mmol/L Anion Gap 14.8 (5-15) MEQ/L BUN 29 H (9-20) mg/dL Creatinine 1.22 (0.66-1.25) mg/dL Estimated GFR 66.2 ML/MIN Glucose 231 H (74-106) mg/dL POC Glucometer 227 H 210 H (74 to 106) mg/dL Lactic Acid (0.4-2.0) Calcium 8.0 L (8.4-10.2) mg/dL Phosphorus 1.7 L (2.5-4.5) mg/dL Magnesium 2.3 (1.6-2.3) mg/dL Total Bilirubin (0.2-1.3) mg/dL AST (17-59) U/L ALT (0-50) U/L Alkaline Phosphatase (38-126) U/L Serum Total Protein (6.3-8.2) g/dL Albumin (3.5-5.0) g/dL Prealbumin (17.6-36.0) mg/dL Urine Color (Yellow) Urine Appearance (Clear) Urine pH (4.6-8.0) Ur Specific Mineral (1.005-1.030) Urine Protein (Negative) Urine Glucose (UA) (Negative) mg/dL Urine Ketones (Negative) Urine Blood (Negative) Urine Nitrite (Negative) Urine Bilirubin (Negative) Urine Urobilinogen (0.2) mg/dL Ur Leukocyte Esterase (Negative) U Hyaline Cast (Auto) (0-2) /LPF Urine Microscopic RBC (0-5) /HPF Urine Microscopic WBC (0-5) /HPF Ur Epithelial Cells (None Seen) /HPF Urine Bacteria (None Seen) /HPF Urine Culture Reflexed (NO) 12/09/23 12/09/23 12/09/23 Range/Units 09:54 09:58 10:20 WBC (4.23-9.07) x10^3/uL RBC (4.63-6.08) x10^6/uL Hgb (13.7-17.5) g/dL Hct (40.1-51.0) % MCV (79.0-92.2) fL MCH (25.7-32.2) pg MCHC (32.3-36.5) g/dL RDW (11.6-14.4) % Plt Count (163-337) x10^3/uL MPV (9.4-12.4) fL Gran % (34.0-67.9) % Immature Gran % (Auto) (0.001-0.429) % Nucleat RBC Rel Count (0.00-0.2) % Eos # (Auto) (0.04-0.54) x10^3/uL Immature Gran # (Auto) (0.001-0.031) x10^3u/L Absolute Lymphs (auto) (1.32-3.57) x10^3/uL Absolute Monos (auto) (0.30-0.82) x10^3/uL Absolute Nucleated RBC (0.00-0.012) x10^3u/L Lymphocytes % (21.8-53.1) % Monocytes % (5.3-12.2) % Eosinophils % (0.8-7.0) % Basophils % (0.2-1.2) % Absolute Granulocytes (1.78-5.38) x10^3/uL Basophils # (0.01-0.08) x10^3/uL Puncture Site pCO2 (35-45) mmHg pO2 (75-100) mmHg Base Excess (-2.0-2.0) O2 Saturation (94-100) g/dF ABG pH (7.35-7.45) ABG HCO3 (22-28) ABG O2 Sat (Measured) (95-100) % Junior Test A-a Gradient a/A Ratio Hemoglobin Carboxyhemoglobin (0.0-6.9) % THgb Methemoglobin (1.4-1.5) % Temperature C POC O2 Flow Rate % Sodium 133 L (135-145) mmol/L Potassium 3.8 (3.5-5.1) mmol/L Chloride 106 (98-107) mmol/L Carbon Dioxide 17 L (22-30) mmol/L Anion Gap 13.2 (5-15) MEQ/L BUN 27 H (9-20) mg/dL Creatinine 1.13 (0.66-1.25) mg/dL Estimated GFR 72.6 ML/MIN Glucose 205 H (74-106) mg/dL POC Glucometer 205 H (74 to 106) mg/dL Lactic Acid 0.6 (0.4-2.0) Calcium 7.7 L (8.4-10.2) mg/dL Phosphorus (2.5-4.5) mg/dL Magnesium (1.6-2.3) mg/dL Total Bilirubin (0.2-1.3) mg/dL AST (17-59) U/L ALT (0-50) U/L Alkaline Phosphatase (38-126) U/L Serum Total Protein (6.3-8.2) g/dL Albumin (3.5-5.0) g/dL Prealbumin (17.6-36.0) mg/dL Urine Color (Yellow) Urine Appearance (Clear) Urine pH (4.6-8.0) Ur Specific Mineral (1.005-1.030) Urine Protein (Negative) Urine Glucose (UA) (Negative) mg/dL Urine Ketones (Negative) Urine Blood (Negative) Urine Nitrite (Negative) Urine Bilirubin (Negative) Urine Urobilinogen (0.2) mg/dL Ur Leukocyte Esterase (Negative) U Hyaline Cast (Auto) (0-2) /LPF Urine Microscopic RBC (0-5) /HPF Urine Microscopic WBC (0-5) /HPF Ur Epithelial Cells (None Seen) /HPF Urine Bacteria (None Seen) /HPF Urine Culture Reflexed (NO) 12/09/23 12/09/23 12/09/23 Range/Units 10:20 10:56 12:04 WBC (4.23-9.07) x10^3/uL RBC (4.63-6.08) x10^6/uL Hgb (13.7-17.5) g/dL Hct (40.1-51.0) % MCV (79.0-92.2) fL MCH (25.7-32.2) pg MCHC (32.3-36.5) g/dL RDW (11.6-14.4) % Plt Count (163-337) x10^3/uL MPV (9.4-12.4) fL Gran % (34.0-67.9) % Immature Gran % (Auto) (0.001-0.429) % Nucleat RBC Rel Count (0.00-0.2) % Eos # (Auto) (0.04-0.54) x10^3/uL Immature Gran # (Auto) (0.001-0.031) x10^3u/L Absolute Lymphs (auto) (1.32-3.57) x10^3/uL Absolute Monos (auto) (0.30-0.82) x10^3/uL Absolute Nucleated RBC (0.00-0.012) x10^3u/L Lymphocytes % (21.8-53.1) % Monocytes % (5.3-12.2) % Eosinophils % (0.8-7.0) % Basophils % (0.2-1.2) % Absolute Granulocytes (1.78-5.38) x10^3/uL Basophils # (0.01-0.08) x10^3/uL Puncture Site RIGHT RADIAL pCO2 32 L (35-45) mmHg pO2 130 H* (75-100) mmHg Base Excess -5.9 L (-2.0-2.0) O2 Saturation 95.7 (94-100) g/dF ABG pH 7.37 (7.35-7.45) ABG HCO3 18.5 L (22-28) ABG O2 Sat (Measured) 99.2 (95-100) % Junior Test YES A-a Gradient -20 a/A Ratio 1.18 Hemoglobin 10.9 Carboxyhemoglobin 2.1 (0.0-6.9) % THgb Methemoglobin 1.4 (1.4-1.5) % Temperature 37.0 C POC O2 Flow Rate 21 % Sodium (135-145) mmol/L Potassium 3.8 (3.5-5.1) mmol/L Chloride (98-107) mmol/L Carbon Dioxide (22-30) mmol/L Anion Gap (5-15) MEQ/L BUN (9-20) mg/dL Creatinine (0.66-1.25) mg/dL Estimated GFR ML/MIN Glucose (74-106) mg/dL POC Glucometer 196 H 193 H (74 to 106) mg/dL Lactic Acid (0.4-2.0) Calcium (8.4-10.2) mg/dL Phosphorus (2.5-4.5) mg/dL Magnesium (1.6-2.3) mg/dL Total Bilirubin (0.2-1.3) mg/dL AST (17-59) U/L ALT (0-50) U/L Alkaline Phosphatase (38-126) U/L Serum Total Protein (6.3-8.2) g/dL Albumin (3.5-5.0) g/dL Prealbumin (17.6-36.0) mg/dL Urine Color (Yellow) Urine Appearance (Clear) Urine pH (4.6-8.0) Ur Specific Mineral (1.005-1.030) Urine Protein (Negative) Urine Glucose (UA) (Negative) mg/dL Urine Ketones (Negative) Urine Blood (Negative) Urine Nitrite (Negative) Urine Bilirubin (Negative) Urine Urobilinogen (0.2) mg/dL Ur Leukocyte Esterase (Negative) U Hyaline Cast (Auto) (0-2) /LPF Urine Microscopic RBC (0-5) /HPF Urine Microscopic WBC (0-5) /HPF Ur Epithelial Cells (None Seen) /HPF Urine Bacteria (None Seen) /HPF Urine Culture Reflexed (NO) Radiology Exams: Radiology Procedures Category Date Time Status ABDOMEN AND PELVIS W/0 CONTRAS [CT] Stat Exams 12/08/23 09:57 Completed PELVIS WITH CONTRAST [CT] Stat Exams 12/09/23 09:55 Completed Multi-Disciplinary Progress Notes: Multi-Disciplinary Progress Notes 12/08/23 22:03 Pharmacy Note by Michelle Lee went in pharmacy to remove timolol eye drops per order. while in pharmacy nurse notified me he did not want these eye drops until morning. left pharmacy without obtaining. Initialized on 12/08/23 22:03 - END OF NOTE Assessment/Plan (1) DKA (diabetic ketoacidosis) Current Visit: Yes Status: Acute Code(s): E11.10 - TYPE 2 DIABETES MELLITUS WITH KETOACIDOSIS WITHOUT COMA (2) Necrotizing fasciitis Current Visit: Yes Status: Acute Code(s): M72.6 - NECROTIZING FASCIITIS (3) Perianal abscess Current Visit: Yes Status: Acute Code(s): K61.0 - ANAL ABSCESS (4) Uncontrolled type II diabetes mellitus Current Visit: Yes Status: Acute Qualifiers: Glycemic state: with hyperglycemia Qualified Code(s): E11.65 - Type 2 diabetes mellitus with hyperglycemia Code(s): OHD2758 - (5) Obesity (BMI 30.0-34.9) Current Visit: Yes Status: Acute Code(s): E66.9 - OBESITY, UNSPECIFIED (6) Type 2 diabetes mellitus with diabetic chronic kidney disease Current Visit: No Status: Chronic Qualifiers: Diabetes mellitus oil heaterman insulin use: with oil heaterman use Chronic kidney disease stage: stage 3 (moderate) Chronic kidney disease stage 3 subtype: stage 3b (GFR 30-44) Qualified Code(s): E11.22 - Type 2 diabetes mellitus with diabetic chronic kidney disease; N18.32 - Chronic kidney disease, stage 3b; Z79.4 - oil heaterman (current) use of insulin Assessment & Plan: (1) DKA (diabetic ketoacidosis) Current Visit: Yes Status: Acute Assessment & Plan: - Continue DKA protocol with insulin gtt - Monitor labs per protocol - IVF - NPO - Insulin gtt stopped while in surgery- restarted IP. 12/08 - remains on insulin gtt - apparently stopped last night and then restarted again- no insulin gave prior to stopping. - diet changed back to NPO - Gap 16.6 tis AM, Co2 15 Code(s): E11.10 - TYPE 2 DIABETES MELLITUS WITH KETOACIDOSIS WITHOUT COMA (2) Necrotizing fasciitis Current Visit: Yes Status: Acute Assessment & Plan: - as observed by ER physician - awaiting official report from GS - IV antibiotics 12/08 - hal-anal wound increased redness and hard- GS notified by nursing staff- they are coming in today to evaluate. - Minimal drainage, brown/ red this AM - + lower abd pain this AM - CT pelvis IMPRESSION: Status of post drainage of the former collection, there is Interval soft tissue loss in the left gluteal cleft with mild fat stranding without signs of fluid collection, abscess formation, or significant hemorrhage. the rest of the scan is stable Code(s): M72.6 - NECROTIZING FASCIITIS (3) Perianal abscess Current Visit: Yes Status: Acute Assessment & Plan: - IV antibiotocs - surgery today with GS - Cultures pending - WBC 11.6 - BC x2 pending - [place] in place for wound healing in ICU pt. 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 - Hold Plavix x2 days per surgery 12/08 - hla-anal wound increased redness and hard- GS notified by nursing staff- they are coming in today to evaluate. - Minimal drainage, brown/ red this AM - WBC WNL 8.9 Code(s): K61.0 - ANAL ABSCESS (4) Uncontrolled type II diabetes mellitus Current Visit: Yes Status: Acute Qualifiers: Glycemic state: with hyperglycemia Qualified Code(s): E11.65 - Type 2 diabetes mellitus with hyperglycemia Assessment & Plan: - A1C > 14 - DKA protocol for now. - NPO for now Code(s): [id number] - (5) Obesity (BMI 30.0-34.9) Current Visit: Yes Status: Acute Assessment & Plan: - advised ADA diet and exercise control Code(s): E66.9 - OBESITY, UNSPECIFIED (6) Type 2 diabetes mellitus with diabetic chronic kidney disease Current Visit: No Status: Chronic Qualifiers: Diabetes mellitus oil heaterman insulin use: with oil heaterman use Chronic kidney disease stage: stage 3 (moderate) Chronic kidney disease stage 3 subtype: stage 3b (GFR 30-44) Qualified Code(s): E11.22 - Type 2 diabetes mellitus with diabetic chronic kidney disease; N18.32 - Chronic kidney disease, stage 3b; Z79.4 - longterm (current) use of insulin Assessment & Plan: - Creat 1.61 - Baseline 1.30 - IVF 12/08 - Creat WNL - IVF Code(s): E11.22 - TYPE 2 DIABETES MELLITUS W DIABETIC CHRONIC KIDNEY DISEASE Code(s): E11.22 - TYPE 2 DIABETES MELLITUS W DIABETIC CHRONIC KIDNEY DISEASE (7) Hypophosphatemia Current Visit: Yes Status: Acute Assessment & Plan: - Phos 1.7- replaced- trend VTE: SCD's Next of KIN: Marianna Márquez [phone] D/C plan: 2-3 days Code status: Full Code(s): E83.39 - OTHER DISORDERS OF PHOSPHORUS METABOLISM
[2023-12-09] MEDS: Protonix 20MG Tablet PO SCH (12:51)
[2023-12-09] MEDS: Tums EX 750 MG PO PRN (12:52)
[2023-12-09] MEDS: FLAGYL 500 MG IVPB 500 MG/100 ML BAG IV SCH (13:59)
[2023-12-09] MEDS: Sodium Chloride 0.9% 250 ML 250 ML IV SCH (15:32)
[2023-12-09 15:42] LABS: ANION GAP 11.8 MEQ/L (5-15); Calcium 7.9 mg/dL (8.4-10.2); Creatinine 1 1.15 mg/dL (0.66-1.25); EST GLOMERULAR FILTRATION RATE 71.1 ML/MIN; Potassium 3.7 mmol/L (3.5-5.1)
[2023-12-09] MEDS ORDERED: HUMALOG SQ PRN (16:31)
[2023-12-09] MEDS ORDERED: GlucaGen 1 MG IM PRN (16:32)
[2023-12-09] MEDS ORDERED: D50W 50 ml Abboject IV PRN (16:32)
[2023-12-09] MEDS ORDERED: Glutose 15 GM ORAL GEL PO PRN (16:32)
[2023-12-09] MEDS ORDERED: Lantus Insulin ONE (16:35)
[2023-12-09] MEDS: Lantus Insulin SQ ONE (16:40)
[2023-12-09] MEDS: Sodium Chloride 0.9% 1000 ML 1,000 ML IV SCH (18:38)
[2023-12-09 19:54] LABS: ANION GAP 11.3 MEQ/L (5-15); Calcium 7.6 mg/dL (8.4-10.2); Creatinine 1 0.99 mg/dL (0.66-1.25); EST GLOMERULAR FILTRATION RATE 85.1 ML/MIN; Potassium 3.8 mmol/L (3.5-5.1)
[2023-12-09] MEDS: HUMALOG SQ PRN (20:11)
[2023-12-10 06:21] LABS: Hemoglobin 10.5 g/dL (13.7-17.5); Mean Cell Volume 85.2 fL (79.0-92.2); Mean Corpuscular Hemoglobin 26.3 pg (25.7-32.2); Mean Corpuscular Hgb Concent. 30.9 g/dL (32.3-36.5); Mean Platelet Volume 10.8 fL (9.4-12.4); Platelet Count 122 x10^3/uL (163-337); Red Blood Count 3.99 x10^6/uL (4.63-6.08); Red Cell Distribution Width 14.2 % (11.6-14.4)
[2023-12-10 06:34] LABS: ALBUMIN 2.7 g/dL (3.5-5.0); BILIRUBIN,TOTAL 0.6 mg/dL (0.2-1.3); Calcium 7.8 mg/dL (8.4-10.2); Creatinine 1 0.98 mg/dL (0.66-1.25); EST GLOMERULAR FILTRATION RATE 86.1 ML/MIN; Potassium 3.5 mmol/L (3.5-5.1); Total Protein 5.5 g/dL (6.3-8.2)
[2023-12-10] MEDS: SODIUM BICARBONATE PO SCH (09:48)
[2023-12-10] MEDS: Neutra-Phos Packet PO SCH (09:48)
[2023-12-10] MEDS: Lantus Insulin SQ SCH (09:52)
[2023-12-10] MEDS: NORCO 5/325 MG PO PRN (11:39)
--- NOTE | 2023-12-10 12:15 | PCM.NOTE ---
Date and Time: 12/10/23 1210 Subjective Assessment: 12/08/23 is a 63 year old male with PMHX of HTN, Type II DM, CABG, and obesity He was seen OP today for labs and found to have leakage from his bottom and referred to the ER. In ER he was found to have a rectal abscess and was in DKA. He was started on an insulin gtt, and antibiotics started. When from ER to OR for surgery of rectal mass and was thought to be necrotizing fascitis per ER note. DKA protocol to be continued IP as well as antibiotics. He is still groggy from surgery. He denies any C/O at this time. 12/09/23 Pt resting in bed on his right side. He was refusing to turn and nursing encouraged him to do so to prevent bed sores. He is POD #1 from surgery of rectal mass with necrotizing fascitis. Nurse feels wound is worse from yesterday with hardening and increased redness of the area. Advised to contact GS right away and notify them of findings. C/o lower abd pain this AM, CT Pelvis ordered for further evaluation. Continue IV antibiotics and IVF. WBC count 8.9. Pt remains on an insulin gtt this am. At one point it was turned off and then turned back on. No insulin was given prior to turning off per protocol. Carb consistent diet ordered this morning and stopped before the pt could eat as he should be NPO. Discussed with pt and apologized for the mistake overnight. CO2 13 and anion gap 16.6. Continue insulin gtt per DKA protocol. Phos 1.7 and replaced. Pt states he overall does not feel well. He denies CP, SOB, N/V/D. 12/10/23 Pt resting in bed. DKA resolved yesterday. Glucose has been well controlled since then. GS came to see pt yesterday and will continue to observe and f/u Monday or Monday for possible repeat surgery of hal-rectal region. Pt changed to a diabetic diet this AM. IV pain meds changed to PO. Pt moved from ICU to Med-Surg. BC X2 and UC negative. Hal-rectal wound culture pending. PT/OT ordered for tomorrow as pt is not wanting to do much. Phos 2.2 today and replaced. Will recheck in AM. Carbon dioxide low at 19 and oral sodium bicarb replacement started. Corrected calcium is 10.4. Pt denies CP, SOB, abd. pain, N/V/D. BP stable today. - Review of Systems Constitutional: Weakness, No Fever, No Chills Eyes: No Symptoms Ears, Nose, & Throat: No Symptoms Respiratory: No Cough, No Short Of Breath Cardiac: No Chest Pain, No Edema, No Syncope Abdominal/Gastrointestinal: No Abdominal Pain, No Nausea, No Vomiting, No Diarrhea Genitourinary Symptoms: No Dysuria Musculoskeletal: No Back Pain, No Neck Pain Skin: Other (hal- rectal wound), No Rash Neurological: No Dizziness, No Focal Weakness, No Sensory Changes Psychological: No Symptoms, Emotional Lability (tearful intermittently, denies suicidal or homicidal ideation, or depression) Endocrine: No Symptoms Hematologic/Lymphatic: No Symptoms Immunological/Allergic: No Symptoms Objective Exam General Appearance: no apparent distress, alert, obese Neurologic Exam: alert, oriented x 3, cooperative, nml cerebellar function, sensation nml, other (labile mood- sometimes tearful), No motor deficits Skin Exam: normal color, warm, dry, other (hal- rectal wound) Wound Assessment: Skin/Wound Assessment Wound/Incision Assessment Start: 12/08/23 19:51 Text: Status: Active Freq: Q6H Protocol: Document 12/10/23 08:00 [facility] (Rec: 12/10/23 08:24 [facility] [id number]) Wound/Incision Assessment Left Buttock Wound Assessment Shift Assessment Wound Type Incision Wound Stage Non Pressure Wound Topical Solution/Irrigant Dakins Irrigant Packing Type Gauze Roll Primary Dressing Absorbant Pad Wound Photo Photo Taken No Date: 12/09/23 Time: 11:00 Comment: See paper chart Eye Exam: PERRL, EOMI, eyes nml inspection Ears, Nose, Throat Exam: normal ENT inspection, pharynx normal, moist mucous membranes Neck Exam: normal inspection, non-tender, supple, full range of motion Respiratory Exam: normal breath sounds, lungs clear, No respiratory distress Cardiovascular Exam: regular rate/rhythm, normal heart sounds Gastrointestinal/Abdomen Exam: soft, No tenderness, No mass Extremity Exam: normal inspection, normal range of motion Back Exam: normal inspection, normal range of motion, No CVA tenderness, No vertebral tenderness Male Genitalia Exam: deferred Rectal Exam: deferred Objective Data Vital Signs: Vital Signs - 24 hr Temp Pulse Resp BP Pulse Ox 12/10/23 12:00 59 L 21 129/56 95 12/10/23 11:00 67 13 127/57 93 L 12/10/23 10:00 67 9 L 129/57 96 12/10/23 09:00 72 15 122/51 96 12/10/23 08:00 97.6 F 65 16 111/47 94 L 12/10/23 07:00 65 18 112/47 92 L 12/10/23 06:00 63 17 121/57 99 12/10/23 05:30 62 18 113/56 97 12/10/23 05:01 57 L 20 141/59 96 12/10/23 04:30 68 18 121/55 97 12/10/23 04:00 97.3 F 59 L 20 119/59 96 12/10/23 03:30 57 L 18 103/49 94 L 12/10/23 03:12 61 14 114/53 94 L 12/10/23 03:03 70 19 95 12/10/23 02:30 82 14 109/55 96 12/10/23 02:00 73 20 106/58 97 12/10/23 01:30 72 14 114/58 96 12/10/23 01:00 68 14 98/55 93 L 12/10/23 00:30 97.3 F 73 20 114/57 97 12/10/23 00:01 71 12/10/23 00:00 73 16 92/50 95 12/09/23 23:30 74 18 112/54 93 L 12/09/23 23:00 70 19 94/48 91 L 12/09/23 22:30 74 15 101/48 92 L 12/09/23 22:00 71 16 120/54 97 12/09/23 21:30 68 14 99/58 96 12/09/23 21:00 74 18 104/55 93 L 12/09/23 20:30 75 14 107/57 94 L 12/09/23 20:22 99 12/09/23 20:00 97.8 F 78 16 104/55 96 12/09/23 19:52 68 12/09/23 19:00 69 18 102/53 99 12/09/23 18:30 65 16 107/54 98 08/03/24 18:24 98 12/09/23 18:00 63 16 116/56 96 12/09/23 17:30 61 15 119/57 97 12/09/23 17:00 73 18 113/61 96 12/09/23 16:30 66 16 106/57 99 12/09/23 16:20 97.8 F 67 18 116/58 99 12/09/23 16:00 66 18 89/36 96 12/09/23 15:48 61 18 84/35 97 12/09/23 15:10 65 17 87/36 96 12/09/23 14:00 60 17 119/63 96 12/09/23 13:00 68 18 113/61 99 Pain Assessment - Last Documented Pain Intensity 4 Pain Scale Used 0-10 Pain Scale Intake and Output: Intake & Output 12/08/23 12/09/23 12/10/23 12/11/23 11:59 11:59 11:59 11:59 Intake Total 2121 5162 Output Total 971 3025 Balance 1146 2137 Weight 82.7 kg 88 kg Lab Results: Lab Results-Last 24 Hours 12/09/23 12/09/23 12/09/23 Range/Units 12:55 13:58 15:08 WBC (4.23-9.07) x10^3/uL RBC (4.63-6.08) x10^6/uL Hgb (13.7-17.5) g/dL Hct (40.1-51.0) % MCV (79.0-92.2) fL MCH (25.7-32.2) pg MCHC (32.3-36.5) g/dL RDW (11.6-14.4) % Plt Count (163-337) x10^3/uL MPV (9.4-12.4) fL Sodium (135-145) mmol/L Potassium (3.5-5.1) mmol/L Chloride (98-107) mmol/L Carbon Dioxide (22-30) mmol/L Anion Gap (5-15) MEQ/L BUN (9-20) mg/dL Creatinine (0.66-1.25) mg/dL Estimated GFR ML/MIN Glucose (74-106) mg/dL POC Glucometer 193 H 184 H 163 H (74 to 106) mg/dL Calcium (8.4-10.2) mg/dL Phosphorus (2.5-4.5) mg/dL Total Bilirubin (0.2-1.3) mg/dL AST (17-59) U/L ALT (0-50) U/L Alkaline Phosphatase (38-126) U/L Serum Total Protein (6.3-8.2) g/dL Albumin (3.5-5.0) g/dL 12/09/23 12/09/23 12/09/23 Range/Units 15:20 15:57 16:43 WBC (4.23-9.07) x10^3/uL RBC (4.63-6.08) x10^6/uL Hgb (13.7-17.5) g/dL Hct (40.1-51.0) % MCV (79.0-92.2) fL MCH (25.7-32.2) pg MCHC (32.3-36.5) g/dL RDW (11.6-14.4) % Plt Count (163-337) x10^3/uL MPV (9.4-12.4) fL Sodium 134 L (135-145) mmol/L Potassium 3.7 (3.5-5.1) mmol/L Chloride 106 (98-107) mmol/L Carbon Dioxide 20 L (22-30) mmol/L Anion Gap 11.8 (5-15) MEQ/L BUN 25 H (9-20) mg/dL Creatinine 1.15 (0.66-1.25) mg/dL Estimated GFR 71.1 ML/MIN Glucose 160 H (74-106) mg/dL POC Glucometer 151 H 136 H (74 to 106) mg/dL Calcium 7.9 L (8.4-10.2) mg/dL Phosphorus (2.5-4.5) mg/dL Total Bilirubin (0.2-1.3) mg/dL AST (17-59) U/L ALT (0-50) U/L Alkaline Phosphatase (38-126) U/L Serum Total Protein (6.3-8.2) g/dL Albumin (3.5-5.0) g/dL 12/09/23 12/09/23 12/09/23 Range/Units 17:57 18:37 19:37 WBC (4.23-9.07) x10^3/uL RBC (4.63-6.08) x10^6/uL Hgb (13.7-17.5) g/dL Hct (40.1-51.0) % MCV (79.0-92.2) fL MCH (25.7-32.2) pg MCHC (32.3-36.5) g/dL RDW (11.6-14.4) % Plt Count (163-337) x10^3/uL MPV (9.4-12.4) fL Sodium 130 L (135-145) mmol/L Potassium 3.8 (3.5-5.1) mmol/L Chloride 105 (98-107) mmol/L Carbon Dioxide 17 L (22-30) mmol/L Anion Gap 11.3 (5-15) MEQ/L BUN 20 (9-20) mg/dL Creatinine 0.99 (0.66-1.25) mg/dL Estimated GFR 85.1 ML/MIN Glucose 183 H (74-106) mg/dL POC Glucometer 162 H 157 H (74 to 106) mg/dL Calcium 7.6 L (8.4-10.2) mg/dL Phosphorus (2.5-4.5) mg/dL Total Bilirubin (0.2-1.3) mg/dL AST (17-59) U/L ALT (0-50) U/L Alkaline Phosphatase (38-126) U/L Serum Total Protein (6.3-8.2) g/dL Albumin (3.5-5.0) g/dL 12/09/23 12/10/23 12/10/23 Range/Units 19:37 00:16 04:00 WBC (4.23-9.07) x10^3/uL RBC (4.63-6.08) x10^6/uL Hgb (13.7-17.5) g/dL Hct (40.1-51.0) % MCV (79.0-92.2) fL MCH (25.7-32.2) pg MCHC (32.3-36.5) g/dL RDW (11.6-14.4) % Plt Count (163-337) x10^3/uL MPV (9.4-12.4) fL Sodium (135-145) mmol/L Potassium (3.5-5.1) mmol/L Chloride (98-107) mmol/L Carbon Dioxide (22-30) mmol/L Anion Gap (5-15) MEQ/L BUN (9-20) mg/dL Creatinine (0.66-1.25) mg/dL Estimated GFR ML/MIN Glucose (74-106) mg/dL POC Glucometer 183 H 168 H (74 to 106) mg/dL Calcium (8.4-10.2) mg/dL Phosphorus 1.9 L (2.5-4.5) mg/dL Total Bilirubin (0.2-1.3) mg/dL AST (17-59) U/L ALT (0-50) U/L Alkaline Phosphatase (38-126) U/L Serum Total Protein (6.3-8.2) g/dL Albumin (3.5-5.0) g/dL 12/10/23 12/10/23 12/10/23 Range/Units 05:55 05:55 07:41 WBC 5.0 (4.23-9.07) x10^3/uL RBC 3.99 L (4.63-6.08) x10^6/uL Hgb 10.5 L (13.7-17.5) g/dL Hct 34.0 L (40.1-51.0) % MCV 85.2 (79.0-92.2) fL MCH 26.3 (25.7-32.2) pg MCHC 30.9 L (32.3-36.5) g/dL RDW 14.2 (11.6-14.4) % Plt Count 122 L (163-337) x10^3/uL MPV 10.8 (9.4-12.4) fL Sodium 133 L (135-145) mmol/L Potassium 3.5 (3.5-5.1) mmol/L Chloride 107 (98-107) mmol/L Carbon Dioxide 19 L (22-30) mmol/L Anion Gap 10.0 (5-15) MEQ/L BUN 18 (9-20) mg/dL Creatinine 0.98 (0.66-1.25) mg/dL Estimated GFR 86.1 ML/MIN Glucose 156 H (74-106) mg/dL POC Glucometer (74 to 106) mg/dL Calcium 7.8 L (8.4-10.2) mg/dL Phosphorus 2.2 L (2.5-4.5) mg/dL Total Bilirubin 0.60 (0.2-1.3) mg/dL AST 23 (17-59) U/L ALT 13 (0-50) U/L Alkaline Phosphatase 81 (38-126) U/L Serum Total Protein 5.5 L (6.3-8.2) g/dL Albumin 2.7 L (3.5-5.0) g/dL 12/10/23 12/10/23 Range/Units 07:57 11:34 WBC (4.23-9.07) x10^3/uL RBC (4.63-6.08) x10^6/uL Hgb (13.7-17.5) g/dL Hct (40.1-51.0) % MCV (79.0-92.2) fL MCH (25.7-32.2) pg MCHC (32.3-36.5) g/dL RDW (11.6-14.4) % Plt Count (163-337) x10^3/uL MPV (9.4-12.4) fL Sodium (135-145) mmol/L Potassium (3.5-5.1) mmol/L Chloride (98-107) mmol/L Carbon Dioxide (22-30) mmol/L Anion Gap (5-15) MEQ/L BUN (9-20) mg/dL Creatinine (0.66-1.25) mg/dL Estimated GFR ML/MIN Glucose (74-106) mg/dL POC Glucometer 165 H 230 H (74 to 106) mg/dL Calcium (8.4-10.2) mg/dL Phosphorus (2.5-4.5) mg/dL Total Bilirubin (0.2-1.3) mg/dL AST (17-59) U/L ALT (0-50) U/L Alkaline Phosphatase (38-126) U/L Serum Total Protein (6.3-8.2) g/dL Albumin (3.5-5.0) g/dL Radiology Exams: Radiology Procedures Category Date Time Status PELVIS WITH CONTRAST [CT] Stat Exams 12/09/23 09:55 Completed Assessment/Plan (1) DKA (diabetic ketoacidosis) Current Visit: Yes Status: Acute Code(s): E11.10 - TYPE 2 DIABETES MELLITUS WITH KETOACIDOSIS WITHOUT COMA (2) Necrotizing fasciitis Current Visit: Yes Status: Acute Code(s): M72.6 - NECROTIZING FASCIITIS (3) Perianal abscess Current Visit: Yes Status: Acute Code(s): K61.0 - ANAL ABSCESS (4) Uncontrolled type II diabetes mellitus Current Visit: Yes Status: Acute Qualifiers: Glycemic state: with hyperglycemia Qualified Code(s): E11.65 - Type 2 diabetes mellitus with hyperglycemia Code(s): [id number] - (5) Obesity (BMI 30.0-34.9) Current Visit: Yes Status: Acute Code(s): E66.9 - OBESITY, UNSPECIFIED (6) Type 2 diabetes mellitus with diabetic chronic kidney disease Current Visit: No Status: Chronic Qualifiers: Diabetes mellitus prison insulin use: with prison use Chronic kidney disease stage: stage 3 (moderate) Chronic kidney disease stage 3 subtype: stage 3b (GFR 30-44) Qualified Code(s): E11.22 - Type 2 diabetes mellitus with diabetic chronic kidney disease; N18.32 - Chronic kidney disease, stage 3b; Z79.4 - penitentiary (current) use of insulin Code(s): E11.22 - TYPE 2 DIABETES MELLITUS W DIABETIC CHRONIC KIDNEY DISEASE (7) Hypophosphatemia Current Visit: Yes Status: Acute Assessment & Plan: (1) DKA (diabetic ketoacidosis) Current Visit: Yes Status: Acute Assessment & Plan: - Continue DKA protocol with insulin gtt - Monitor labs per protocol - IVF - NPO - Insulin gtt stopped while in surgery- restarted IP. 12/08 - remains on insulin gtt - apparently stopped last night and then restarted again- no insulin gave prior to stopping. - diet changed back to NPO - Gap 16.6 tis AM, Co2 15 8/ - DKA resolved yesterday evening - Lantus started 35 units BID, Humalog s/s moderate dosing, Humalog 10 units with meals, accuchecks ac/hs - Carb consistent diet Code(s): E11.10 - TYPE 2 DIABETES MELLITUS WITH KETOACIDOSIS WITHOUT COMA (2) Necrotizing fasciitis Current Visit: Yes Status: Acute Assessment & Plan: - as observed by ER physician - awaiting official report from GS - IV antibiotics 12/08 - hal-anal wound increased redness and hard- GS notified by nursing staff- they are coming in today to evaluate. - Minimal drainage, brown/ red this AM - + lower abd pain this AM - CT pelvis IMPRESSION: Status of post drainage of the former collection, there is Interval soft tissue loss in the left gluteal cleft with mild fat stranding without signs of fluid collection, abscess formation, or significant hemorrhage. the rest of the scan is stable 12/09 - Surgery eval yesterday, recommended to continue to watch and will f/u Monday or Monday with possible repeat surgery if needed. Code(s): M72.6 - NECROTIZING FASCIITIS (3) Perianal abscess Current Visit: Yes Status: Acute Assessment & Plan: - IV antibiotocs - surgery today with GS - Cultures pending - WBC 11.6 - BC x2 pending - [place] in place for wound healing in ICU pt. 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 - Hold Plavix x2 days per surgery 12/08 - hal-anal wound increased redness and hard- GS notified by nursing staff- they are coming in today to evaluate. - Minimal drainage, brown/ red this AM - WBC WNL 8.9 12/09 - Surgery eval yesterday, recommended to continue to watch and will f/u Monday or Monday with possible repeat surgery if needed. - WBC 5.0 - BC x2 negative - PT/OT - Prostat 64 protein supplement added daily to aide in wound healing Code(s): K61.0 - ANAL ABSCESS (4) Uncontrolled type II diabetes mellitus Current Visit: Yes Status: Acute Qualifiers: Glycemic state: with hyperglycemia Qualified Code(s): E11.65 - Type 2 diabetes mellitus with hyperglycemia Assessment & Plan: - A1C > 14 - DKA protocol for now. 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 Chronic kidney disease stage: stage 3 (moderate) Chronic kidney disease stage 3 subtype: stage 3b (GFR 30-44) Qualified Code(s): E11.22 - Type 2 diabetes mellitus with diabetic chronic kidney disease; N18.32 - Chronic kidney disease, stage 3b; Z79.4 - penitentiary (current) use of insulin Assessment & Plan: - A1C >14 12/08/23 - Creat 1.61 - Baseline 1.30 - IVF 12/08 - Creat WNL - IVF Code(s): E11.22 - TYPE 2 DIABETES MELLITUS W DIABETIC CHRONIC KIDNEY DISEASE (7) Hypophosphatemia Current Visit: Yes Status: Acute Assessment & Plan: - Phos 1.7- replaced- trend 12/09 - Phos 2.2- replaced VTE: SCD's Next of KIN: Marianna Márquez [phone] D/C plan: 2-3 days Code status: Full Code(s): E83.39 - OTHER DISORDERS OF PHOSPHORUS METABOLISM
[2023-12-10] MEDS ORDERED: Lantus Insulin SQ ONE (16:31)
[2023-12-10] MEDS: HUMALOG SQ SCH (17:02)
--- NOTE | 2023-12-10 21:04 | CONS ---
CHIEF COMPLAINT: Perineal pain. REFERRING PROVIDER: ED physician. 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 HISTORY: This patient presents with 3 days of left buttocks worsening pain that initially started as a small area and has progressively worsened. The patient has had a history of toe infection before. He had a recent toe amputation. He has been on IV antibiotics previously but has not been on any antibiotics during this episode. He presented to the emergency department because of the worsening pain. Also per his family, his blood sugars have been very high. He says that he stopped taking his diabetes medications at directions after his last discharge, but his sugars have been running over 400, sometimes even running higher than the machine can read. He denies any chest pain, shortness of breath, fevers or chills. PAST MEDICAL HISTORY: Diabetes; coronary artery disease, status post open heart surgery with bypass; hypertension. PAST SURGICAL HISTORY: CABG, cholecystectomy, hand surgery, and toe amputation. MEDICATIONS: Reviewed. See MR including aspirin and Plavix. FAMILY HISTORY: Noncontributory. SOCIAL HISTORY: Denies tobacco. REVIEW OF SYSTEMS: As noted per HPI. LAB DATA AND TESTS: Reviewed CT scan images which show a significant amount of gas in the perirectal/perineal area extending quite high up almost to the levators. Case discussed with ED room physician. Reviewed CBC, significant for a white blood cell count of 11.6 thousand. CMP significant for a blood glucose level of 459 and an elevated creatinine at 1.9. His lactic acid was also elevated at 2.5. PHYSICAL EXAMINATION: GENERAL: No acute distress. HEENT: Sclerae anicteric. Extraocular motions intact. NECK: Supple. No JVD. CHEST: Nonlabored breathing. ABDOMEN: Soft, nontender. NEUROLOGIC: Awake, alert and oriented. PSYCHIATRIC: Appropriate mood and affect. SKIN: Perineal exam with large indurated, erythematous area in the left perirectal area extending to the perineum more anteriorly with some fullness and extreme tenderness. 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 Risks and benefits of surgery and alternatives to surgery discussed at depth with the patient including significant chance that we will need to debride extensively necrotic tissue and that there may be a large wound from this debridement which may require significant time to heal and potentially other surgeries. He is at increased risk of bleeding complication with his cardiac disease on Plavix and aspirin as well as increased risk of wound healing complications with his poorly controlled diabetes as well as increased anesthesia risk with his cardiac disease. However, the patient has a potentially life-threatening infection, and the patient would like to proceed with surgery.
--- NOTE | 2023-12-10 21:06 | OP ---
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 PROCEDURE: Incision and debridement, left perineum, including subcutaneous fat and fascia measuring approximately 14 x 8 cm and 10 cm deep. SURGEON: Aureliano Ramirez MD ANESTHESIA: General. ESTIMATED BLOOD LOSS: 100 mL. COMPLICATIONS: None. SPECIMENS: Perineal tissue for culture. FINDINGS: Extensive necrotizing infection of the left perineum. INDICATIONS: This patient presents with CT scan and clinical findings suggestive of Clarke gangrene of the left perineum. After discussing the risks and benefits of surgery, patient wished to proceed. DESCRIPTION OF PROCEDURE AND FINDINGS: Patient was brought to the operating room, placed under general anesthesia, placed in low lithotomy position, area prepped and draped in sterile fashion. An incision was then made over the fullness in the left upper gluteal area and towards his perineum as well. The fullness involves basically the whole left side around his anus but not involving his anus and extending close to the base of the scrotum but not involving the scrotum. We incised the skin and the subcutaneous fat, and I got into the necrotizing infection. There is [place], dishwater fluid as well as necrotic fat and fascia, and this was extensively debrided with Bovie electrocautery. The tissue was quite oozy, especially with him being on Plavix, but we obtained reasonable hemostasis with electrocautery. We debrided all of the tissue back to healthy fat, and this extended quite high up just about to the levators running alongside the rectum but not involving the rectum. Eventually, we had all the tissue debrided. The area was then irrigated with 0.25% Dakin solution and then packed with wet Kerlix soaked in Dakin. Patient recovered and taken to PACU in stable condition.
[2023-12-11 04:45] LABS: Hematocrit 33.2 % (40.1-51.0); Hemoglobin 10.8 g/dL (13.7-17.5); Mean Cell Volume 83.2 fL (79.0-92.2); Mean Corpuscular Hemoglobin 27.1 pg (25.7-32.2); Mean Corpuscular Hgb Concent. 32.5 g/dL (32.3-36.5); Mean Platelet Volume 10.7 fL (9.4-12.4); Platelet Count 140 x10^3/uL (163-337); Red Blood Count 3.99 x10^6/uL (4.63-6.08); Red Cell Distribution Width 13.8 % (11.6-14.4); White Blood Count 4.5 x10^3/uL (4.23-9.07)
[2023-12-11 05:00] LABS: ALBUMIN 2.6 g/dL (3.5-5.0); ANION GAP 9.7 MEQ/L (5-15); BILIRUBIN,TOTAL 0.5 mg/dL (0.2-1.3); Calcium 8.1 mg/dL (8.4-10.2); Creatinine 1 0.93 mg/dL (0.66-1.25); EST GLOMERULAR FILTRATION RATE 91.7 ML/MIN; PHOSPHOROUS 2.5 mg/dL (2.5-4.5); Potassium 3.4 mmol/L (3.5-5.1); Total Protein 5.4 g/dL (6.3-8.2)
--- NOTE | 2023-12-11 05:43 | PCM.NOTE ---
Date and Time: 12/11/23 05 Subjective Assessment: Mr. Bains is a 63 year old male with a pmhx of HTN, Type II DM, CABG, and obesity admitted 12/08/23 with Admitted 12/08/23 with DKA/ perirectal abscess and necrotizing fasciitis. CT abd/pelvis performed in ED appearances shows fat stranding with extraluminal soft tissue gas in the left perianal soft tissues a long the left gluteal cleft extending to the left ischiorectal fossa. Findings suggestive of left perianal abscess with cellulitis concerning for necrotizing soft tissue infection. Surgery consulted and I&D performed. IP antimicrobials including Cefepime, Flagyl, and Vancomycin. Blood and urine cultures NGTD. Perirectal cultures pending. Surgery reports he may need further intervention for abscess and necrotizing fasciitis. DKA has resolved. 12/11/23: Met with patient bedside. Endorses continued pain in buttocks with a 5/10 numerical rating. Discussed case with Dr. Penelope Ramirez, wound is looking better -no plans for further surgical intervention. Most likely will need hospitalization for another week and two week of antibiotics. May be a good candidate for swing bed - will discuss with CM. May consider wound vac although placement may be difficult and uncomfortable. Labs showing hypokalemia this morning - will replenish. Blood glucose levels improved. <MATT LUU - Last Filed: 12/11/23 12:12> Date and Time: 12/11/232100 <CHAPINCITO DANIELSON - Last Filed: 12/11/23 21:02> - Review of Systems Constitutional: No Symptoms Eyes: No Symptoms Ears, Nose, & Throat: No Symptoms Respiratory: No Symptoms Cardiac: No Symptoms Abdominal/Gastrointestinal: No Symptoms Genitourinary Symptoms: No Symptoms Musculoskeletal: No Symptoms Skin: Other (Perirectal wound, covered ) Neurological: No Symptoms Psychological: No Symptoms Endocrine: No Symptoms Hematologic/Lymphatic: No Symptoms Immunological/Allergic: No Symptoms <MATT LUU - Last Filed: 12/11/23 12:12> Objective Exam General Appearance: no apparent distress Neurologic Exam: alert, oriented x 3, cooperative Skin Exam: other (see wound assessment) Wound Assessment: Skin/Wound Assessment Wound/Incision Assessment Start: 12/08/23 19:51 Text: Status: Active Freq: Q6H Protocol: Document 12/11/23 02:00 AK (Rec: 12/11/23 02:11 AK [id number]) Wound/Incision Assessment Left Buttock Wound Assessment Shift Assessment Wound Type Incision Wound Stage Non Pressure Wound Dressing Status Dry & Intact Comment left perianal abscess s/p I&D - dressing CDI - NAEL wound Wound Photo Photo Taken Yes Date: 12/10/23 Time: 20:00 Comment: See paper chart Eye Exam: PERRL Ears, Nose, Throat Exam: normal ENT inspection Neck Exam: normal inspection Respiratory Exam: normal breath sounds, lungs clear Cardiovascular Exam: regular rate/rhythm, normal heart sounds Gastrointestinal/Abdomen Exam: soft, normal bowel sounds Extremity Exam: normal inspection Back Exam: normal inspection Male Genitalia Exam: deferred Rectal Exam: deferred <MATT LUU - Last Filed: 12/11/23 12:12> Wound Assessment: Skin/Wound Assessment Wound/Incision Assessment Start: 12/08/23 19:51 Text: Status: Active Freq: Q6H Protocol: Document 12/11/23 14:00 RF (Rec: 12/11/23 14:10 RF [id number]) Wound/Incision Assessment Left Buttock Wound Assessment Shift Assessment Wound Type Incision Wound Stage Non Pressure Wound Dressing Status Dry & Intact Comment left perianal abscess s/p I&D - dressing CDI Wound Photo Photo Taken Yes Date: 12/10/23 Time: 20:00 Comment: See paper chart <CHAPINCITO DANIELSON - Last Filed: 12/11/23 21:02> Objective Data Vital Signs: Vital Signs - 24 hr Temp Pulse Resp BP BP Pulse Ox 12/11/23 04:00 97.8 F 65 18 153/65 95 12/10/23 23:53 98.3 F 68 18 119/57 93 L 12/10/23 19:56 97.9 F 72 18 119/60 95 12/10/23 16:00 97.7 F 58 L 16 138/63 95 12/10/23 12:00 59 L 21 129/56 95 12/10/23 11:00 67 13 127/57 93 L 12/10/23 10:00 67 9 L 129/57 96 12/10/23 09:00 72 15 122/51 96 12/10/23 08:00 97.6 F 65 16 111/47 94 L 12/10/23 07:00 65 18 112/47 92 L 12/10/23 06:00 63 17 121/57 99 Pain Assessment - Last Documented Pain Intensity 0 Pain Scale Used 0-10 Pain Scale Intake and Output: Intake & Output 12/08/23 12/09/23 12/10/23 12/11/23 11:59 11:59 11:59 11:59 Intake Total 2125 3351 7322 Output Total 765 1981 2073 Balance 1146 2137 -653 Weight 82.7 kg 88 kg 88.1 kg Lab Results: Lab Results-Last 24 Hours 12/10/23 12/10/23 12/10/23 Range/Units 05:55 05:55 07:41 WBC 5.0 (4.23-9.07) x10^3/uL RBC 3.99 L (4.63-6.08) x10^6/uL Hgb 10.5 L (13.7-17.5) g/dL Hct 34.0 L (40.1-51.0) % MCV 85.2 (79.0-92.2) fL MCH 26.3 (25.7-32.2) pg MCHC 30.9 L (32.3-36.5) g/dL RDW 14.2 (11.6-14.4) % Plt Count 122 L (163-337) x10^3/uL MPV 10.8 (9.4-12.4) fL Sodium 133 L (135-145) mmol/L Potassium 3.5 (3.5-5.1) mmol/L Chloride 107 (98-107) mmol/L Carbon Dioxide 19 L (22-30) mmol/L Anion Gap 10.0 (5-15) MEQ/L BUN 18 (9-20) mg/dL Creatinine 0.98 (0.66-1.25) mg/dL Estimated GFR 86.1 ML/MIN Glucose 156 H (74-106) mg/dL POC Glucometer (74 to 106) mg/dL Calcium 7.8 L (8.4-10.2) mg/dL Phosphorus 2.2 L (2.5-4.5) mg/dL Total Bilirubin 0.60 (0.2-1.3) mg/dL AST 23 (17-59) U/L ALT 13 (0-50) U/L Alkaline Phosphatase 81 (38-126) U/L Serum Total Protein 5.5 L (6.3-8.2) g/dL Albumin 2.7 L (3.5-5.0) g/dL 12/10/23 12/10/23 12/10/23 Range/Units 07:57 11:34 16:29 WBC (4.23-9.07) x10^3/uL RBC (4.63-6.08) x10^6/uL Hgb (13.7-17.5) g/dL Hct (40.1-51.0) % MCV (79.0-92.2) fL MCH (25.7-32.2) pg MCHC (32.3-36.5) g/dL RDW (11.6-14.4) % Plt Count (163-337) x10^3/uL MPV (9.4-12.4) fL Sodium (135-145) mmol/L Potassium (3.5-5.1) mmol/L Chloride (98-107) mmol/L Carbon Dioxide (22-30) mmol/L Anion Gap (5-15) MEQ/L BUN (9-20) mg/dL Creatinine (0.66-1.25) mg/dL Estimated GFR ML/MIN Glucose (74-106) mg/dL POC Glucometer 165 H 230 H 271 H (74 to 106) mg/dL Calcium (8.4-10.2) mg/dL Phosphorus (2.5-4.5) mg/dL Total Bilirubin (0.2-1.3) mg/dL AST (17-59) U/L ALT (0-50) U/L Alkaline Phosphatase (38-126) U/L Serum Total Protein (6.3-8.2) g/dL Albumin (3.5-5.0) g/dL 12/10/23 12/11/23 12/11/23 Range/Units 20:39 04:37 04:37 WBC 4.5 (4.23-9.07) x10^3/uL RBC 3.99 L (4.63-6.08) x10^6/uL Hgb 10.8 L (13.7-17.5) g/dL Hct 33.2 L (40.1-51.0) % MCV 83.2 (79.0-92.2) fL MCH 27.1 (25.7-32.2) pg MCHC 32.5 (32.3-36.5) g/dL RDW 13.8 (11.6-14.4) % Plt Count 140 L (163-337) x10^3/uL MPV 10.7 (9.4-12.4) fL Sodium 136 (135-145) mmol/L Potassium 3.4 L (3.5-5.1) mmol/L Chloride 106 (98-107) mmol/L Carbon Dioxide 24 (22-30) mmol/L Anion Gap 9.7 (5-15) MEQ/L BUN 16 (9-20) mg/dL Creatinine 0.93 (0.66-1.25) mg/dL Estimated GFR 91.7 ML/MIN Glucose 148 H (74-106) mg/dL POC Glucometer 192 H (74 to 106) mg/dL Calcium 8.1 L (8.4-10.2) mg/dL Phosphorus 2.5 (2.5-4.5) mg/dL Total Bilirubin 0.50 (0.2-1.3) mg/dL AST 19 (17-59) U/L ALT 13 (0-50) U/L Alkaline Phosphatase 81 (38-126) U/L Serum Total Protein 5.4 L (6.3-8.2) g/dL Albumin 2.6 L (3.5-5.0) g/dL Radiology Exams: Radiology Procedures Category Date Time Status PELVIS WITH CONTRAST [CT] Stat Exams 12/09/23 09:55 Completed <MATT LUU - Last Filed: 12/11/23 12:12> Vital Signs: Vital Signs - 24 hr Temp Pulse Resp BP Pulse Ox 12/11/23 18:53 97.1 F 65 16 131/60 92 L 12/11/23 16:00 97.7 F 67 20 122/59 94 L 12/11/23 12:00 97.3 F 65 18 154/72 96 12/11/23 07:10 97.0 F 62 15 129/61 94 L 12/11/23 04:00 97.8 F 65 18 153/65 95 12/10/23 23:53 98.3 F 68 18 119/57 93 L Pain Assessment - Last Documented Pain Intensity 0 Pain Scale Used 0-10 Pain Scale Intake and Output: Intake & Output 12/09/23 12/10/23 12/11/23 12/12/23 11:59 11:59 11:59 11:59 Intake Total 2124 3348 1457 1450 Output Total 976 0378 7550 2550 Balance 1146 2137 -1013 -1100 Weight 88 kg 88.1 kg 87.5 kg 87.5 kg Lab Results: Lab Results-Last 24 Hours 12/11/23 12/11/23 12/11/23 Range/Units 04:37 04:37 06:55 WBC 4.5 (4.23-9.07) x10^3/uL RBC 3.99 L (4.63-6.08) x10^6/uL Hgb 10.8 L (13.7-17.5) g/dL Hct 33.2 L (40.1-51.0) % MCV 83.2 (79.0-92.2) fL MCH 27.1 (25.7-32.2) pg MCHC 32.5 (32.3-36.5) g/dL RDW 13.8 (11.6-14.4) % Plt Count 140 L (163-337) x10^3/uL MPV 10.7 (9.4-12.4) fL Sodium 136 (135-145) mmol/L Potassium 3.4 L (3.5-5.1) mmol/L Chloride 106 (98-107) mmol/L Carbon Dioxide 24 (22-30) mmol/L Anion Gap 9.7 (5-15) MEQ/L BUN 16 (9-20) mg/dL Creatinine 0.93 (0.66-1.25) mg/dL Estimated GFR 91.7 ML/MIN Glucose 148 H (74-106) mg/dL POC Glucometer 166 H (74 to 106) mg/dL Calcium 8.1 L (8.4-10.2) mg/dL Phosphorus 2.5 (2.5-4.5) mg/dL Total Bilirubin 0.50 (0.2-1.3) mg/dL AST 19 (17-59) U/L ALT 13 (0-50) U/L Alkaline Phosphatase 81 (38-126) U/L Serum Total Protein 5.4 L (6.3-8.2) g/dL Albumin 2.6 L (3.5-5.0) g/dL Vancomycin Trough (10-20) ug/mL 12/11/23 12/11/23 12/11/23 Range/Units 10:15 11:50 16:15 WBC (4.23-9.07) x10^3/uL RBC (4.63-6.08) x10^6/uL Hgb (13.7-17.5) g/dL Hct (40.1-51.0) % MCV (79.0-92.2) fL MCH (25.7-32.2) pg MCHC (32.3-36.5) g/dL RDW (11.6-14.4) % Plt Count (163-337) x10^3/uL MPV (9.4-12.4) fL Sodium (135-145) mmol/L Potassium 4.1 D (3.5-5.1) mmol/L Chloride (98-107) mmol/L Carbon Dioxide (22-30) mmol/L Anion Gap (5-15) MEQ/L BUN (9-20) mg/dL Creatinine (0.66-1.25) mg/dL Estimated GFR ML/MIN Glucose (74-106) mg/dL POC Glucometer 122 H (74 to 106) mg/dL Calcium (8.4-10.2) mg/dL Phosphorus (2.5-4.5) mg/dL Total Bilirubin (0.2-1.3) mg/dL AST (17-59) U/L ALT (0-50) U/L Alkaline Phosphatase (38-126) U/L Serum Total Protein (6.3-8.2) g/dL Albumin (3.5-5.0) g/dL Vancomycin Trough 10.57 (10-20) ug/mL 12/11/23 Range/Units 16:37 WBC (4.23-9.07) x10^3/uL RBC (4.63-6.08) x10^6/uL Hgb (13.7-17.5) g/dL Hct (40.1-51.0) % MCV (79.0-92.2) fL MCH (25.7-32.2) pg MCHC (32.3-36.5) g/dL RDW (11.6-14.4) % Plt Count (163-337) x10^3/uL MPV (9.4-12.4) fL Sodium (135-145) mmol/L Potassium (3.5-5.1) mmol/L Chloride (98-107) mmol/L Carbon Dioxide (22-30) mmol/L Anion Gap (5-15) MEQ/L BUN (9-20) mg/dL Creatinine (0.66-1.25) mg/dL Estimated GFR ML/MIN Glucose (74-106) mg/dL POC Glucometer 214 H (74 to 106) mg/dL Calcium (8.4-10.2) mg/dL Phosphorus (2.5-4.5) mg/dL Total Bilirubin (0.2-1.3) mg/dL AST (17-59) U/L ALT (0-50) U/L Alkaline Phosphatase (38-126) U/L Serum Total Protein (6.3-8.2) g/dL Albumin (3.5-5.0) g/dL Vancomycin Trough (10-20) ug/mL Radiology Exams: Radiology Procedures Category Date Time Status CHEST 1 VIEW (PORTABLE) Stat Exams 12/11/23 15:49 Completed Multi-Disciplinary Progress Notes: Multi-Disciplinary Progress Notes 12/11/23 13:13 Pharmacy Note by Pablo Wen Vancomycin trough 10.57. Creatinine has improved. Will increase to 1.5gm daily. Repeat trough on 12-13. Initialized on 12/11/23 13:13 - END OF NOTE <CHAPINCITO DANIELSON - Last Filed: 12/11/23 21:02> Assessment/Plan (1) DKA (diabetic ketoacidosis) Current Visit: Yes Status: Acute Assessment & Plan: -DKA protocol with insulin gtt initially - now resolved - Lantus started 35 units BID, Humalog s/s moderate dosing, Humalog 10 units with meals, accuchecks ac/hs - Carb consistent diet -A1c > 14 Code(s): E11.10 - TYPE 2 DIABETES MELLITUS WITH KETOACIDOSIS WITHOUT COMA (2) Necrotizing fasciitis Current Visit: Yes Status: Acute Assessment & Plan: -CT imaging 12/08/23 with left perianal abscess with cellulitis concerning for necrotizing soft tissue infection - Antimicrobial history: Cefepime/Flagyl/Vancomycin -concern for worsening infection 12/09/23 - CT pelvis (12/09/23) Showing status of post drainage of the former collection, there is Interval soft tissue loss in the left gluteal cleft with mild fat stranding without signs of fluid collection, abscess formation, or significant hemorrhage. the rest of the scan is stable - Discussed case with Edwin, wound is improving, no further surgical i ntervention as of now, plan to monitor with IV abx and wound care- consider wound vac - may be good candidate for swing bed Code(s): M72.6 - NECROTIZING FASCIITIS (3) Perianal abscess Current Visit: Yes Status: Acute Assessment & Plan: -Antimicrobial history stated in necrotizing fasciitis plan - s/p I&D - Masha-rectal Cultures pending - WBC 11.6 - BC x2 pending -NGTD - [place] in place for wound healing in ICU pt. 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 - Hold Plavix x2 days per surgery - PT/OT - Prostat 64 protein supplement added daily to aide in wound healing Code(s): K61.0 - ANAL ABSCESS (4) Uncontrolled type II diabetes mellitus Current Visit: Yes Status: Acute Qualifiers: Glycemic state: with hyperglycemia Qualified Code(s): E11.65 - Type 2 diabetes mellitus with hyperglycemia Assessment & Plan: - A1C > 14 -ADA diet - carb consistent diet -Lispro [id number]/SSI -Glargine 35 U BID Code(s): ENQ1548 - (5) Obesity (BMI 30.0-34.9) Current Visit: Yes Status: Acute Assessment & Plan: - advised ADA diet and exercise control Code(s): E66.9 - OBESITY, UNSPECIFIED (6) Hypophosphatemia Current Visit: Yes Status: Acute Assessment & Plan: -phos at 2.5 -wnL - resolved Code(s): E83.39 - OTHER DISORDERS OF PHOSPHORUS METABOLISM (7) Type 2 diabetes mellitus with diabetic chronic kidney disease Current Visit: No Status: Chronic Qualifiers: Diabetes mellitus half-way insulin use: with manager long term care use Chronic kidney disease stage: stage 3 (moderate) Chronic kidney disease stage 3 subtype: stage 3b (GFR 30-44) Qualified Code(s): E11.22 - Type 2 diabetes mellitus with diabetic chronic kidney disease; N18.32 - Chronic kidney disease, stage 3b; Z79.4 - [facility] (current) use of insulin Assessment & Plan: - see uncontrolled diabetes above -Baseline creat around 1.5 - now wnl VTE: SCD's /Next of KIN: Marianna Márquez [phone] D/C plan: 2-3 days Code(s): E11.22 - TYPE 2 DIABETES MELLITUS W DIABETIC CHRONIC KIDNEY DISEASE (8) Hypokalemia Current Visit: Yes Status: Acute Assessment & Plan: -labs reviewed, K+ at 3.4, will replenish per protocol -recheck Code(s): E87.6 - HYPOKALEMIA <MATT LUU - Last Filed: 12/11/23 12:12> BEHZAD Encounter - BEHZAD Encounter Attestation BEHZAD Encounter Attestation: "IhavepersonallyseenandexaminedBEMENT,SURINDER andhavediscussed pertinent aspects of their care with Matt Crum agree with the history, physical exam (any modifications based on my personal exam will be noted below), assessment, and plan as outlined in original note. Please see immediately below for my summary of findings and additional assessment and plan along with any meaningful corrections/explanations to the Subjective/Objective portions of the BEHZAD note will be noted." My portion of the encounter took place via telemedicine. -DKA has resolved, patient now on insulin basal bolus regimen however will require continued hospitalization for care of nec fasc wound of the buttock and need for IV antibiotics. He denied any pain today, overall feeling better. <CHAPINCITO DANIELSON - Last Filed: 12/11/23 21:02>
[2023-12-11] MEDS: Klor Con PO SCH (06:04)
[2023-12-11] MEDS: TROUGH DRUG LEVELS IJ ONE (10:42)
[2023-12-11] MEDS: HYLENEX 150 UNITS INJECTION SQ ONE (13:09)
--- NOTE | 2023-12-11 16:37 | XRAY ---
Indication: PICC line placement. Comparison: August 26, 2023 Portable chest again demonstrates right upper extremity PICC line with the tip projecting over distal SVC. Remaining heart and lungs unremarkable again with incidental tiny calcified granulomas and CABG. Bony thorax intact again with osteopenia and degenerative changes.
[2023-12-11] MEDS: Sodium Chloride 0.9% 10 ML FLUSH Syringe PICC SCH (21:09)
--- NOTE | 2023-12-12 05:25 | PCM.NOTE ---
Date and Time: 12/12/23523 Subjective Assessment: Mr. Bains is a 63 year old male with a pmhx of HTN, Type II DM, CABG, and obesity admitted 12/08/23 with Admitted 12/08/23 with DKA/ perirectal abscess and necrotizing fasciitis. CT abd/pelvis performed in ED appearances shows fat stranding with extraluminal soft tissue gas in the left perianal soft tissues a long the left gluteal cleft extending to the left ischiorectal fossa. Findings suggestive of left perianal abscess with cellulitis concerning for necrotizing soft tissue infection. Surgery consulted and I&D performed. IP antimicrobials including Cefepime, Flagyl, and Vancomycin. Blood and urine cultures NGTD. Perirectal cultures pending. Surgery reports he may need further intervention for abscess and necrotizing fasciitis. DKA has resolved. 12/11/23: Met with patient bedside. Endorses continued pain in buttocks with a 5/10 numerical rating. Discussed case with Dr. Penelope Ramirez, wound is looking better -no plans for further surgical intervention. Most likely will need hospitalization for another week and two week of antibiotics. May be a good candidate for swing bed - will discuss with CM. May consider wound vac although placement may be difficult and uncomfortable. Labs showing hypokalemia this morning - will replenish. Blood glucose levels improved. 12/12/23: No overnight events noted. Continued pain left buttock- 3/10 on numerical pain scale. Culture with ecoli, sensitivity pending. Continue current abx/dressing changes for now. PICC placed yesterday. - Review of Systems Constitutional: No Symptoms Eyes: No Symptoms Ears, Nose, & Throat: No Symptoms Respiratory: No Symptoms Cardiac: No Symptoms Abdominal/Gastrointestinal: No Symptoms Genitourinary Symptoms: No Symptoms Musculoskeletal: No Symptoms Skin: Other (See wound assessment) Neurological: No Symptoms Psychological: No Symptoms Endocrine: No Symptoms Hematologic/Lymphatic: No Symptoms Immunological/Allergic: No Symptoms Objective Exam General Appearance: no apparent distress Neurologic Exam: alert, oriented x 3, cooperative Skin Exam: other (see wound assessment) Wound Assessment: Skin/Wound Assessment Wound/Incision Assessment Start: 12/08/23 19:51 Text: Status: Active Freq: Q6H Protocol: Document 12/12/23 02:00 SEAN (Rec: 12/12/23 02:13 SEAN [id number]) Wound/Incision Assessment Left Buttock Wound Assessment Shift Assessment Wound Type Incision Wound Stage Non Pressure Wound Dressing Status Dry & Intact Comment DRESSING CLEAN, DRY AND INTACT Ears, Nose, Throat Exam: normal ENT inspection Neck Exam: normal inspection Respiratory Exam: normal breath sounds, lungs clear Cardiovascular Exam: regular rate/rhythm, normal heart sounds Gastrointestinal/Abdomen Exam: soft, normal bowel sounds Extremity Exam: normal inspection Back Exam: normal inspection Objective Data Vital Signs: Vital Signs - 24 hr Temp Pulse Resp BP Pulse Ox 12/12/23 04:00 97.1 F 68 18 138/65 95 12/11/23 22:56 98.8 F 60 16 126/58 93 L 12/11/23 18:53 97.1 F 65 16 131/60 92 L 12/11/23 16:00 97.7 F 67 20 122/59 94 L 12/11/23 12:00 97.3 F 65 18 154/72 96 12/11/23 07:10 97.0 F 62 15 129/61 94 L Pain Assessment - Last Documented Pain Intensity 0 Pain Scale Used 0-10 Pain Scale Intake and Output: Intake & Output 12/09/23 12/10/23 12/11/23 12/12/23 11:59 11:59 11:59 11:59 Intake Total 2122 1377 3735 1570 Output Total 971 0150 6000 5000 Balance 1146 9174 -1018 -5620 Weight 88 kg 88.1 kg 87.5 kg 87.5 kg Lab Results: Lab Results-Last 24 Hours 12/11/23 12/11/23 12/11/23 Range/Units 04:37 06:55 10:15 Sodium 136 (135-145) mmol/L Potassium 3.4 L (3.5-5.1) mmol/L Chloride 106 (98-107) mmol/L Carbon Dioxide 24 (22-30) mmol/L Anion Gap 9.7 (5-15) MEQ/L BUN 16 (9-20) mg/dL Creatinine 0.93 (0.66-1.25) mg/dL Estimated GFR 91.7 ML/MIN Glucose 148 H (74-106) mg/dL POC Glucometer 166 H (74 to 106) mg/dL Calcium 8.1 L (8.4-10.2) mg/dL Phosphorus 2.5 (2.5-4.5) mg/dL Total Bilirubin 0.50 (0.2-1.3) mg/dL AST 19 (17-59) U/L ALT 13 (0-50) U/L Alkaline Phosphatase 81 (38-126) U/L Serum Total Protein 5.4 L (6.3-8.2) g/dL Albumin 2.6 L (3.5-5.0) g/dL Vancomycin Trough 10.57 (10-20) ug/mL 12/11/23 12/11/23 12/11/23 Range/Units 11:50 16:15 16:37 Sodium (135-145) mmol/L Potassium 4.1 D (3.5-5.1) mmol/L Chloride (98-107) mmol/L Carbon Dioxide (22-30) mmol/L Anion Gap (5-15) MEQ/L BUN (9-20) mg/dL Creatinine (0.66-1.25) mg/dL Estimated GFR ML/MIN Glucose (74-106) mg/dL POC Glucometer 122 H 214 H (74 to 106) mg/dL Calcium (8.4-10.2) mg/dL Phosphorus (2.5-4.5) mg/dL Total Bilirubin (0.2-1.3) mg/dL AST (17-59) U/L ALT (0-50) U/L Alkaline Phosphatase (38-126) U/L Serum Total Protein (6.3-8.2) g/dL Albumin (3.5-5.0) g/dL Vancomycin Trough (10-20) ug/mL 12/11/23 12/11/23 Range/Units 21:20 23:41 Sodium (135-145) mmol/L Potassium (3.5-5.1) mmol/L Chloride (98-107) mmol/L Carbon Dioxide (22-30) mmol/L Anion Gap (5-15) MEQ/L BUN (9-20) mg/dL Creatinine (0.66-1.25) mg/dL Estimated GFR ML/MIN Glucose (74-106) mg/dL POC Glucometer 198 H 138 H (74 to 106) mg/dL Calcium (8.4-10.2) mg/dL Phosphorus (2.5-4.5) mg/dL Total Bilirubin (0.2-1.3) mg/dL AST (17-59) U/L ALT (0-50) U/L Alkaline Phosphatase (38-126) U/L Serum Total Protein (6.3-8.2) g/dL Albumin (3.5-5.0) g/dL Vancomycin Trough (10-20) ug/mL Radiology Exams: Radiology Procedures Category Date Time Status CHEST 1 VIEW (PORTABLE) Stat Exams 12/11/23 15:49 Completed Multi-Disciplinary Progress Notes: Multi-Disciplinary Progress Notes 12/11/23 13:13 Pharmacy Note by Pablo Wen Vancomycin trough 10.57. Creatinine has improved. Will increase to 1.5gm daily. Repeat trough on 12-13. Initialized on 12/11/23 13:13 - END OF NOTE Assessment/Plan (1) DKA (diabetic ketoacidosis) Current Visit: Yes Status: Acute Assessment & Plan: -DKA protocol with insulin gtt initially - now resolved - Lantus started 35 units BID, Humalog s/s moderate dosing, Humalog 10 units with meals, accuchecks ac/hs - Carb consistent diet -A1c > 14 12/12/23: -Blood glucose levels stable, continue current insulin regimen Code(s): E11.10 - TYPE 2 DIABETES MELLITUS WITH KETOACIDOSIS WITHOUT COMA (2) Necrotizing fasciitis Current Visit: Yes Status: Acute Assessment & Plan: -CT imaging 12/08/23 with left perianal abscess with cellulitis concerning for necrotizing soft tissue infection - Antimicrobial history: Cefepime/Flagyl/Vancomycin -concern for worsening infection 12/09/23 - CT pelvis (12/09/23) Showing status of post drainage of the former collection, there is Interval soft tissue loss in the left gluteal cleft with mild fat stranding without signs of fluid collection, abscess formation, or significant hemorrhage. the rest of the scan is stable - Discussed case with Edwin, wound is improving, no further surgical intervention as of now, plan to monitor with IV abx and wound care- consider wound vac - may be good candidate for swing bed 12/12/23 -Wound culture with ECOLI, sensitivity pending -PICC placed- most likely will need 2 weeks of abx Code(s): M72.6 - NECROTIZING FASCIITIS (3) Perianal abscess Current Visit: Yes Status: Acute Assessment & Plan: -Antimicrobial history stated in necrotizing fasciitis plan - s/p I&D - Masha-rectal Cultures pending - WBC 11.6 - BC x2 pending -NGTD - [place] in place for wound healing in ICU pt. 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 - Hold Plavix x2 days per surgery - PT/OT - Prostat 64 protein supplement added daily to aide in wound healing 12/11: -Plavix/ASA resumed -see necrotizing faciitis -continue above plan-will have wound vac placed Code(s): K61.0 - ANAL ABSCESS (4) Uncontrolled type II diabetes mellitus Current Visit: Yes Status: Acute Qualifiers: Glycemic state: with hyperglycemia Qualified Code(s): E11.65 - Type 2 diabetes mellitus with hyperglycemia Assessment & Plan: - A1C > 14 -ADA diet - carb consistent diet -Lispro [id number]/SSI -Glargine 35 U BID Code(s): [id number] - (5) Obesity (BMI 30.0-34.9) Current Visit: Yes Status: Acute Assessment & Plan: - advised ADA diet and exercise control Code(s): E66.9 - OBESITY, UNSPECIFIED (6) Hypophosphatemia Current Visit: Yes Status: Acute Assessment & Plan: -phos at 2.5 -wnL - resolved Code(s): E83.39 - OTHER DISORDERS OF PHOSPHORUS METABOLISM (7) Type 2 diabetes mellitus with diabetic chronic kidney disease Current Visit: No Status: Chronic Qualifiers: Diabetes mellitus manager terminal insulin use: with manager terminal use Chronic kidney disease stage: stage 3 (moderate) Chronic kidney disease stage 3 subtype: stage 3b (GFR 30-44) Qualified Code(s): E11.22 - Type 2 diabetes mellitus with diabetic chronic kidney disease; N18.32 - Chronic kidney disease, stage 3b; Z79.4 - longterm (current) use of insulin Assessment & Plan: - see uncontrolled diabetes above -Baseline creat around 1.5 - now wnl VTE: SCD's /Next of KIN: Marianna Yulisa [phone] D/C plan: 2-3 days Code(s): E11.22 - TYPE 2 DIABETES MELLITUS W DIABETIC CHRONIC KIDNEY DISEASE (8) Hypokalemia Current Visit: Yes Status: Acute Assessment & Plan: -labs reviewed, K+ at 3.4, will replenish per protocol -recheck Code(s): E87.6 - HYPOKALEMIA Code(s): E11.10 - TYPE 2 DIABETES MELLITUS WITH KETOACIDOSIS WITHOUT COMA (2) Necrotizing fasciitis Current Visit: Yes Status: Acute Code(s): M72.6 - NECROTIZING FASCIITIS (3) Perianal abscess Current Visit: Yes Status: Acute Code(s): K61.0 - ANAL ABSCESS (4) Uncontrolled type II diabetes mellitus Current Visit: Yes Status: Acute Qualifiers: Glycemic state: with hyperglycemia Qualified Code(s): E11.65 - Type 2 diabetes mellitus with hyperglycemia Code(s): [id number] - (5) Obesity (BMI 30.0-34.9) Current Visit: Yes Status: Acute Code(s): E66.9 - OBESITY, UNSPECIFIED (6) Hypophosphatemia Current Visit: Yes Status: Acute Code(s): E83.39 - OTHER DISORDERS OF PHOSPHORUS METABOLISM (7) Type 2 diabetes mellitus with diabetic chronic kidney disease Current Visit: No Status: Chronic Qualifiers: Diabetes mellitus manager terminal insulin use: with manager terminal use Chronic kidney disease stage: stage 3 (moderate) Chronic kidney disease stage 3 subtype: s tage 3b (GFR 30-44) Qualified Code(s): E11.22 - Type 2 diabetes mellitus with diabetic chronic kidney disease; N18.32 - Chronic kidney disease, stage 3b; Z79.4 - longterm (current) use of insulin Code(s): E11.22 - TYPE 2 DIABETES MELLITUS W DIABETIC CHRONIC KIDNEY DISEASE (8) Hypokalemia Current Visit: Yes Status: Acute Code(s): E87.6 - HYPOKALEMIA
[2023-12-12 05:47] LABS: Absolute Neutrophil Ct (ANC) 3.03 x10^3/uL (1.78-5.38); Basophil (Absolute #) 0.05 x10^3/uL (0.01-0.08); Eosinophil % 3.2 % (0.8-7.0); Eosinophil (Absolute #) 0.16 x10^3/uL (0.04-0.54); Hematocrit 34.3 % (40.1-51.0); IMMATURE GRAN # 0.08 x10^3u/L (0.001-0.031); IMMATURE GRAN % 1.6 % (0.001-0.429); Lymphocyte (Absolute #) 1.19 x10^3/uL (1.32-3.57); Lymphocytes % 23.6 % (21.8-53.1); Mean Cell Volume 83.3 fL (79.0-92.2); Mean Corpuscular Hemoglobin 26.7 pg (25.7-32.2); Mean Corpuscular Hgb Concent. 32.1 g/dL (32.3-36.5); Mean Platelet Volume 11.2 fL (9.4-12.4); Monocyte (Absolute #) 0.54 x10^3/uL (0.30-0.82); Monocytes % 10.7 % (5.3-12.2); Neutrophil % 59.9 % (34.0-67.9); Platelet Count 137 x10^3/uL (163-337); Red Blood Count 4.12 x10^6/uL (4.63-6.08); Red Cell Distribution Width 13.8 % (11.6-14.4); White Blood Count 5.1 x10^3/uL (4.23-9.07)
[2023-12-12 05:59] LABS: ALBUMIN 2.5 g/dL (3.5-5.0); ANION GAP 7.3 MEQ/L (5-15); BILIRUBIN,TOTAL 0.6 mg/dL (0.2-1.3); Calcium 8.3 mg/dL (8.4-10.2); Creatinine 1 0.84 mg/dL (0.66-1.25); EST GLOMERULAR FILTRATION RATE 97.4 ML/MIN; Total Protein 5.3 g/dL (6.3-8.2)
[2023-12-12] MEDS: ECOTRIN 81 MG PO SCH (11:04)
[2023-12-12] MEDS: VANCOMYCIN 1.5 GRAM/300 ML BAG 1.5 GM/300 ML PIGGYBACK IV SCH (11:04)
[2023-12-12] MEDS: PLAVIX Tablet PO SCH (11:05)
[2023-12-13 05:10] LABS: Absolute Neutrophil Ct (ANC) 3.67 x10^3/uL (1.78-5.38); Basophil (Absolute #) 0.08 x10^3/uL (0.01-0.08); Eosinophil % 3.1 % (0.8-7.0); Eosinophil (Absolute #) 0.24 x10^3/uL (0.04-0.54); Hematocrit 37.8 % (40.1-51.0); Hemoglobin 11.8 g/dL (13.7-17.5); IMMATURE GRAN # 0.15 x10^3u/L (0.001-0.031); IMMATURE GRAN % 1.9 % (0.001-0.429); Lymphocyte (Absolute #) 2.52 x10^3/uL (1.32-3.57); Lymphocytes % 32.5 % (21.8-53.1); Mean Cell Volume 84.9 fL (79.0-92.2); Mean Corpuscular Hemoglobin 26.5 pg (25.7-32.2); Mean Corpuscular Hgb Concent. 31.2 g/dL (32.3-36.5); Mean Platelet Volume 10.6 fL (9.4-12.4); Monocytes % 14.2 % (5.3-12.2); Neutrophil % 47.3 % (34.0-67.9); Platelet Count 178 x10^3/uL (163-337); Red Blood Count 4.45 x10^6/uL (4.63-6.08); Red Cell Distribution Width 13.8 % (11.6-14.4); White Blood Count 7.8 x10^3/uL (4.23-9.07)
[2023-12-13 05:34] LABS: ALBUMIN 3.1 g/dL (3.5-5.0); ANION GAP 9.1 MEQ/L (5-15); BILIRUBIN,TOTAL 0.6 mg/dL (0.2-1.3); Calcium 8.6 mg/dL (8.4-10.2); Creatinine 1 0.94 mg/dL (0.66-1.25); EST GLOMERULAR FILTRATION RATE 90.5 ML/MIN; Potassium 3.6 mmol/L (3.5-5.1); Total Protein 6.4 g/dL (6.3-8.2)
--- NOTE | 2023-12-13 05:45 | PCM.NOTE ---
Date and Time: 12/13/23 0544 Subjective Assessment: Mr. Bains is a 63 year old male with a pmhx of HTN, Type II DM, CABG, and obesity admitted 12/08/23 with Admitted 12/08/23 with DKA/ perirectal abscess and necrotizing fasciitis. CT abd/pelvis performed in ED appearances shows fat stranding with extraluminal soft tissue gas in the left perianal soft tissues a long the left gluteal cleft extending to the left ischiorectal fossa. Findings suggestive of left perianal abscess with cellulitis concerning for necrotizing soft tissue infection. Surgery consulted and I&D performed. IP antimicrobials including Cefepime, Flagyl, and Vancomycin. Blood and urine cultures NGTD. Perirectal cultures pending. Surgery reports he may need further intervention for abscess and necrotizing fasciitis. DKA has resolved. 12/11/23: Met with patient bedside. Endorses continued pain in buttocks with a 5/10 numerical rating. Discussed case with Dr. Penelope Ramirez, wound is looking better -no plans for further surgical intervention. Most likely will need hospitalization for another week and two week of antibiotics. May be a good candidate for swing bed - will discuss with CM. May consider wound vac although placement may be difficult and uncomfortable. Labs showing hypokalemia this morning - will replenish. Blood glucose levels improved. 12/12/23: No overnight events noted. Continued pain left buttock- 3/10 on numerical pain scale. Culture with ecoli, sensitivity pending. Continue current abx/dressing changes for now. PICC placed yesterday. 12/13/23: Met and examined bedside. Surgery and PT evaluated wound yesterday for wound vac and unable to place due to location of wound/sufficient tissue in periwound to support vac. Considering alginate in wound bed to promote granulation for possible future use of wound vac. No pain reported today. No other complaints voiced. Denies fever,cough, sob, cp, abdominal pain, MARQUES, dizziness, N/V/D. Cultures pending final. - Review of Systems Constitutional: No Symptoms Eyes: No Symptoms Ears, Nose, & Throat: No Symptoms Respiratory: No Symptoms Cardiac: No Symptoms Abdominal/Gastrointestinal: No Symptoms Genitourinary Symptoms: No Symptoms Musculoskeletal: No Symptoms Skin: No Symptoms Neurological: No Symptoms Psychological: No Symptoms Endocrine: No Symptoms Hematologic/Lymphatic: No Symptoms Immunological/Allergic: No Symptoms Objective Exam General Appearance: no apparent distress Neurologic Exam: alert, oriented x 3, cooperative Skin Exam: other (see wound assessment) Wound Assessment: Skin/Wound Assessment Wound/Incision Assessment Start: 12/08/23 19:51 Text: Status: Active Freq: Q6H Protocol: Document 12/13/23 03:00 LB (Rec: 12/13/23 04:10 LB [id number]) Wound/Incision Assessment Left Buttock Wound Assessment Shift Assessment Wound Type Incision Dressing Status Dry & Intact Drainage Amount None Drainage Odor Mild Odor Primary Dressing Gauze Roll/Wrap Secondary Dressing Absorbant Pad Comment DRESSING CDI Wound Photo Photo Taken Yes Comment: In chart Eye Exam: PERRL Ears, Nose, Throat Exam: normal ENT inspection Neck Exam: normal inspection Respiratory Exam: normal breath sounds, lungs clear Cardiovascular Exam: regular rate/rhythm, normal heart sounds Gastrointestinal/Abdomen Exam: soft, normal bowel sounds Extremity Exam: normal inspection Back Exam: normal inspection Objective Data Vital Signs: Vital Signs - 24 hr Temp Pulse Resp BP Pulse Ox 12/13/23 04:00 97.2 F 75 18 136/60 94 L 12/13/23 00:00 97.3 F 63 18 148/65 95 12/12/23 20:00 98.0 F 72 19 116/54 93 L 12/12/23 16:00 97.5 F 57 L 20 132/60 94 L 12/12/23 12:00 97.6 F 65 18 142/63 94 L 12/12/23 08:00 97.5 F 65 17 135/61 95 Pain Assessment - Last Documented Pain Intensity 0 Pain Scale Used 0-10 Pain Scale Intake and Output: Intake & Output 12/10/23 12/11/23 12/12/23 12/13/23 11:59 11:59 11:59 11:59 Intake Total 8064 8687 1810 860 Output Total 7513 6490 6094 2800 Balance 8126 -2322 -9522 -5009 Weight 88.1 kg 87.5 kg 88.9 kg Lab Results: Lab Results-Last 24 Hours 12/12/23 12/12/23 12/12/23 Range/Units 05:20 05:20 08:03 WBC 5.1 (4.23-9.07) x10^3/uL RBC 4.12 L (4.63-6.08) x10^6/uL Hgb 11.0 L (13.7-17.5) g/dL Hct 34.3 L (40.1-51.0) % MCV 83.3 (79.0-92.2) fL MCH 26.7 (25.7-32.2) pg MCHC 32.1 L (32.3-36.5) g/dL RDW 13.8 (11.6-14.4) % Plt Count 137 L (163-337) x10^3/uL MPV 11.2 (9.4-12.4) fL Gran % 59.9 (34.0-67.9) % Immature Gran % (Auto) 1.6 H (0.001-0.429) % Nucleat RBC Rel Count 0.0 (0.00-0.2) % Eos # (Auto) 0.16 (0.04-0.54) x10^3/uL Immature Gran # (Auto) 0.08 H (0.001-0.031) x10^3u/L Absolute Lymphs (auto) 1.19 L (1.32-3.57) x10^3/uL Absolute Monos (auto) 0.54 (0.30-0.82) x10^3/uL Absolute Nucleated RBC 0.00 (0.00-0.012) x10^3u/L Lymphocytes % 23.6 (21.8-53.1) % Monocytes % 10.7 (5.3-12.2) % Eosinophils % 3.2 (0.8-7.0) % Basophils % 1.0 (0.2-1.2) % Absolute Granulocytes 3.03 (1.78-5.38) x10^3/uL Basophils # 0.05 (0.01-0.08) x10^3/uL Sodium 137 (135-145) mmol/L Potassium 4.0 (3.5-5.1) mmol/L Chloride 105 (98-107) mmol/L Carbon Dioxide 29 (22-30) mmol/L Anion Gap 7.3 (5-15) MEQ/L BUN 15 (9-20) mg/dL Creatinine 0.84 (0.66-1.25) mg/dL Estimated GFR 97.4 ML/MIN Glucose 84 (74-106) mg/dL POC Glucometer 111 H (74 to 106) mg/dL Calcium 8.3 L (8.4-10.2) mg/dL Total Bilirubin 0.60 (0.2-1.3) mg/dL AST 23 (17-59) U/L ALT 11 (0-50) U/L Alkaline Phosphatase 73 (38-126) U/L Serum Total Protein 5.3 L (6.3-8.2) g/dL Albumin 2.5 L (3.5-5.0) g/dL 12/12/23 12/12/23 12/12/23 Range/Units 11:34 16:13 20:56 WBC (4.23-9.07) x10^3/uL RBC (4.63-6.08) x10^6/uL Hgb (13.7-17.5) g/dL Hct (40.1-51.0) % MCV (79.0-92.2) fL MCH (25.7-32.2) pg MCHC (32.3-36.5) g/dL RDW (11.6-14.4) % Plt Count (163-337) x10^3/uL MPV (9.4-12.4) fL Gran % (34.0-67.9) % Immature Gran % (Auto) (0.001-0.429) % Nucleat RBC Rel Count (0.00-0.2) % Eos # (Auto) (0.04-0.54) x10^3/uL Immature Gran # (Auto) (0.001-0.031) x10^3u/L Absolute Lymphs (auto) (1.32-3.57) x10^3/uL Absolute Monos (auto) (0.30-0.82) x10^3/uL Absolute Nucleated RBC (0.00-0.012) x10^3u/L Lymphocytes % (21.8-53.1) % Monocytes % (5.3-12.2) % Eosinophils % (0.8-7.0) % Basophils % (0.2-1.2) % Absolute Granulocytes (1.78-5.38) x10^3/uL Basophils # (0.01-0.08) x10^3/uL Sodium (135-145) mmol/L Potassium (3.5-5.1) mmol/L Chloride (98-107) mmol/L Carbon Dioxide (22-30) mmol/L Anion Gap (5-15) MEQ/L BUN (9-20) mg/dL Creatinine (0.66-1.25) mg/dL Estimated GFR ML/MIN Glucose (74-106) mg/dL POC Glucometer 200 H 110 H 130 H (74 to 106) mg/dL Calcium (8.4-10.2) mg/dL Total Bilirubin (0.2-1.3) mg/dL AST (17-59) U/L ALT (0-50) U/L Alkaline Phosphatase (38-126) U/L Serum Total Protein (6.3-8.2) g/dL Albumin (3.5-5.0) g/dL 12/13/23 12/13/23 Range/Units 04:26 04:26 WBC 7.8 (4.23-9.07) x10^3/uL RBC 4.45 L (4.63-6.08) x10^6/uL Hgb 11.8 L (13.7-17.5) g/dL Hct 37.8 L (40.1-51.0) % MCV 84.9 (79.0-92.2) fL MCH 26.5 (25.7-32.2) pg MCHC 31.2 L (32.3-36.5) g/dL RDW 13.8 (11.6-14.4) % Plt Count 178 (163-337) x10^3/uL MPV 10.6 (9.4-12.4) fL Gran % 47.3 (34.0-67.9) % Immature Gran % (Auto) 1.9 H (0.001-0.429) % Nucleat RBC Rel Count 0.0 (0.00-0.2) % Eos # (Auto) 0.24 (0.04-0.54) x10^3/uL Immature Gran # (Auto) 0.15 H (0.001-0.031) x10^3u/L Absolute Lymphs (auto) 2.52 (1.32-3.57) x10^3/uL Absolute Monos (auto) 1.10 H (0.30-0.82) x10^3/uL Absolute Nucleated RBC 0.00 (0.00-0.012) x10^3u/L Lymphocytes % 32.5 (21.8-53.1) % Monocytes % 14.2 H (5.3-12.2) % Eosinophils % 3.1 (0.8-7.0) % Basophils % 1.0 (0.2-1.2) % Absolute Granulocytes 3.67 (1.78-5.38) x10^3/uL Basophils # 0.08 (0.01-0.08) x10^3/uL Sodium 136 (135-145) mmol/L Potassium 3.6 (3.5-5.1) mmol/L Chloride 102 (98-107) mmol/L Carbon Dioxide 29 (22-30) mmol/L Anion Gap 9.1 (5-15) MEQ/L BUN 14 (9-20) mg/dL Creatinine 0.94 (0.66-1.25) mg/dL Estimated GFR 90.5 ML/MIN Glucose 68 L (74-106) mg/dL POC Glucometer (74 to 106) mg/dL Calcium 8.6 (8.4-10.2) mg/dL Total Bilirubin 0.60 (0.2-1.3) mg/dL AST 37 (17-59) U/L ALT 14 (0-50) U/L Alkaline Phosphatase 75 (38-126) U/L Serum Total Protein 6.4 (6.3-8.2) g/dL Albumin 3.1 L (3.5-5.0) g/dL Radiology Exams: Radiology Procedures Category Date Time Status CHEST 1 VIEW (PORTABLE) Stat Exams 12/11/23 15:49 Completed Multi-Disciplinary Progress Notes: Multi-Disciplinary Progress Notes 12/12/23 20:01 Physical Therapy Note by Demi(Joey#[id number]),Stephanie PT. WAS SEEN BY P.T. THIS A.M. HAD REFUSED TO GET UP W/ FRENCH TRANSLATOR PRIOR TO P.T. ENTERING. C/O SEVERE L BUTTOCK PN D/T ABSCESS. REPORTS HE DID NOT SLEEP WELL D/T "FEELING HOT" ALL NIGHT. REPORTS TEMP WAS NOT ELEVATED. PT. AGREED TO WORK W/ P.T. PERFORMED SUPINE TO SIT W/ MIN-MOD ASSIST X 1; SIT TO STAND CGA-MIN ASSIST. PT. AMBULATED ~50' W/ ROLLATOR AND MIN-MOD ASSIST. L LE TENDS TO ADDUCT AND DECREASE SOLOMON WELL CREATING TRIPPING HAZARD OVER R LE. PT. ALSO NEEDS ASSIST TO KEEP ROLLATOR FROM DEVIATING LATERALLY WHILE WALKING. PT. C/O FEELING HOT AFTER WALK AND FATIGUE. O2 SATS WNL ON RA. PT. ATTEMPTED TO SIT IN CHAIR TO PERFORM ADLS AND WAS NOT ABLE TO TOLERATE D/T L BUTTOCK PN. IN PM OBSERVED WET-DRY DRESSING CHANGE L BUTTOCK WOUND PER NURSING TO ASSESS WHETHER WOUND VAC MIGHT BE APPROPRIATE. DR. ONEAL RAMIREZ PRESENT WELL. WOUND LOCATION IS VERY MEDIAL ON L BUTTOCK W/ FLAP THAT LAYS ON RECTUM. DOES NOT APPEAR THERE IS SUFFICIENT TISSUE IN PERIWOUND TO SUPPORT VAC DRAPE AT THIS TIME. MAY LOOK AT CALCIUM ALGINATE IN WOUND BED TO PROMOTE SOME GRANULATION SO THAT WOUND VAC PLACEMENT MIGHT BE POSSIBLE. PT. CONT. W/ IV ATB. WILL CONT. P.T. 5X/WK UNTIL D/C TO ADDRESS WEAKNESS AND DECREASED FUNCTIONAL M OBILITY AND GAIT INDEPENDENCE/TOLERANCE. WILL ASSIST W/ W/C RECOMMENDATIONS PRN. Initialized on 12/12/23 20:01 - END OF NOTE 12/12/23 11:55 Case Management Note by Judit Davidson S/W PATIENT ABOUT PLANS AT [place]. PATIENT WILL NEED DRESSING CARE AND IV ANTIBIOTICS AT [place]. WE DISCUSSED A SWINGBED STAY HERE AT [facility]. PATIENT AGREEABLE AT THIS TIME. WILL PLAN TO TRANSITION TO SWINGBED WHEN MEDICALLY READY Initialized on 12/12/23 11:55 - END OF NOTE Assessment/Plan (1) DKA (diabetic ketoacidosis) Current Visit: Yes Status: Acute Assessment & Plan: -DKA protocol with insulin gtt initially - now resolved - Lantus started 35 units BID, Humalog s/s moderate dosing, Humalog 10 units with meals, accuchecks ac/hs - Carb consistent diet -A1c > 14 12/12/23: -Blood glucose levels stable, continue current insulin regimen Code(s): E11.10 - TYPE 2 DIABETES MELLITUS WITH KETOACIDOSIS WITHOUT COMA (2) Necrotizing fasciitis Current Visit: Yes Status: Acute Assessment & Plan: -CT imaging 12/08/23 with left perianal abscess with cellulitis concerning for necrotizing soft tissue infection - Antimicrobial history: Cefepime/Flagyl/Vancomycin -concern for worsening infection 12/09/23 - CT pelvis (12/09/23) Showing status of post drainage of the former collection, there is Interval soft tissue loss in the left gluteal cleft with mild fat stranding without signs of fluid collection, abscess formation, or significant hemorrhage. the rest of the scan is stable - Discussed case with Edwin, wound is improving, no further surgical intervention as of now, plan to monitor with IV abx and wound care- consider wound vac - may be good candidate for swing bed 12/12/23 -Wound culture with ECOLI, sensitivity pending -PICC placed- most likely will need 2 weeks of abx 12/13/23: -continue current IV abx until final culture results -Unable to place wound vac at this time - may consider in future - will attempt calcium alginate to promote granulation per PT notes Code(s): M72.6 - NECROTIZING FASCIITIS (3) Perianal abscess Current Visit: Yes Status: Acute Assessment & Plan: -Antimicrobial history stated in necrotizing fasciitis plan - s/p I&D - Masha-rectal Cultures pending - WBC 11.6 - BC x2 pending -NGTD - [place] in place for wound healing in ICU pt. 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 - Hold Plavix x2 days per surgery - PT/OT - Prostat 64 protein supplement added daily to aide in wound healing 12/11: -Plavix/ASA resumed -see necrotizing faciitis -continue above plan-will have wound vac placed Code(s): K61.0 - ANAL ABSCESS (4) Uncontrolled type II diabetes mellitus Current Visit: Yes Status: Acute Qualifiers: Glycemic state: with hyperglycemia Qualified Code(s): E11.65 - Type 2 diabetes mellitus with hyperglycemia Assessment & Plan: - A1C > 14 -ADA diet - carb consistent diet -Lispro [id number]/SSI -Glargine 35 U BID Code(s): [id number] - (5) Obesity (BMI 30.0-34.9) Current Visit: Yes Status: Acute Assessment & Plan: - advised ADA diet and exercise control Code(s): E66.9 - OBESITY, UNSPECIFIED (6) Hypophosphatemia Current Visit: Yes Status: Acute Assessment & Plan: -phos at 2.5 -wnL - resolved Code(s): E83.39 - OTHER DISORDERS OF PHOSPHORUS METABOLISM (7) Type 2 diabetes mellitus with diabetic chronic kidney disease Current Visit: No Status: Chronic Qualifiers: Diabetes mellitus correction insulin use: with correction use Chronic kidney disease stage: stage 3 (moderate) Chronic kidney disease stage 3 subtype: stage 3b (GFR 30-44) Qualified Code(s): E11.22 - Type 2 diabetes mellitus with diabetic chronic kidney disease; N18.32 - Chronic kidney disease, stage 3b; 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 Assessment & Plan: - see uncontrolled diabetes above -Baseline creat around 1.5 - now wnl VTE: SCD's /Next of KIN: Marianna Yulisa [phone] D/C plan: 2-3 days Code(s): E11.10 - TYPE 2 DIABETES MELLITUS WITH KETOACIDOSIS WITHOUT COMA (2) Necrotizing fasciitis Current Visit: Yes Status: Acute Code(s): M72.6 - NECROTIZING FASCIITIS (3) Perianal abscess Current Visit: Yes Status: Acute Code(s): K61.0 - ANAL ABSCESS (4) Uncontrolled type II diabetes mellitus Current Visit: Yes Status: Acute Qualifiers: Glycemic state: with hyperglycemia Qualified Code(s): E11.65 - Type 2 diabetes mellitus with hyperglycemia Code(s): [id number] - (5) Obesity (BMI 30.0-34.9) Current Visit: Yes Status: Acute Code(s): E66.9 - OBESITY, UNSPECIFIED (6) Hypophosphatemia Current Visit: Yes Status: Acute Code(s): E83.39 - OTHER DISORDERS OF PHOSPHORUS METABOLISM (7) Type 2 diabetes mellitus with diabetic chronic kidney disease Current Visit: No Status: Chronic Qualifiers: Diabetes mellitus correction insulin use: with correction use Chronic kidney disease stage: stage 3 (moderate) Chronic kidney disease stage 3 subtype: stage 3b (GFR 30-44) Qualified Code(s): E11.22 - Type 2 diabetes mellitus with diabetic chronic kidney disease; N18.32 - Chronic kidney disease, stage 3b; Z79.4 - group home (current) use of insulin Code(s): E11.22 - TYPE 2 DIABETES MELLITUS W DIABETIC CHRONIC KIDNEY DISEASE (8) Hypokalemia Current Visit: Yes Status: Acute Code(s): E87.6 - HYPOKALEMIA
[2023-12-13] MEDS ORDERED: ECOTRIN 81 MG PO SCH (10:00)
[2023-12-13] MEDS ORDERED: PLAVIX Tablet PO SCH (10:00)
[2023-12-13] MEDS: Zestril 20 MG PO SCH (10:01)
[2023-12-13] MEDS: Klor Con PO SCH (10:02)
[2023-12-14 04:49] LABS: Absolute Neutrophil Ct (ANC) 3.33 x10^3/uL (1.78-5.38); BASOPHIL % 0.8 % (0.2-1.2); Basophil (Absolute #) 0.05 x10^3/uL (0.01-0.08); Eosinophil (Absolute #) 0.19 x10^3/uL (0.04-0.54); Hemoglobin 11.3 g/dL (13.7-17.5); IMMATURE GRAN # 0.11 x10^3u/L (0.001-0.031); IMMATURE GRAN % 1.7 % (0.001-0.429); Lymphocyte (Absolute #) 1.76 x10^3/uL (1.32-3.57); Lymphocytes % 27.6 % (21.8-53.1); Mean Cell Volume 85.9 fL (79.0-92.2); Mean Corpuscular Hgb Concent. 31.4 g/dL (32.3-36.5); Mean Platelet Volume 9.8 fL (9.4-12.4); Monocyte (Absolute #) 0.94 x10^3/uL (0.30-0.82); Monocytes % 14.7 % (5.3-12.2); Neutrophil % 52.2 % (34.0-67.9); Platelet Count 158 x10^3/uL (163-337); Red Blood Count 4.19 x10^6/uL (4.63-6.08); White Blood Count 6.4 x10^3/uL (4.23-9.07)
--- NOTE | 2023-12-14 05:15 | PCM.NOTE ---
Date and Time: 12/14/23 0514 Subjective Assessment: Mr. Bains is a 63 year old male with a pmhx of HTN, Type II DM, CABG, and obesity admitted 12/08/23 with Admitted 12/08/23 with DKA/ perirectal abscess and necrotizing fasciitis. CT abd/pelvis performed in ED appearances shows fat stranding with extraluminal soft tissue gas in the left perianal soft tissues a long the left gluteal cleft extending to the left ischiorectal fossa. Findings suggestive of left perianal abscess with cellulitis concerning for necrotizing soft tissue infection. Surgery consulted and I&D performed. IP antimicrobials including Cefepime, Flagyl, and Vancomycin. Blood and urine cultures NGTD. Perirectal cultures pending. Surgery reports he may need further intervention for abscess and necrotizing fasciitis. DKA has resolved. 12/11/23: Met with patient bedside. Endorses continued pain in buttocks with a 5/10 numerical rating. Discussed case with Dr. Penelope Ramirez, wound is looking better -no plans for further surgical intervention. Most likely will need hospitalization for another week and two week of antibiotics. May be a good candidate for swing bed - will discuss with CM. May consider wound vac although placement may be difficult and uncomfortable. Labs showing hypokalemia this morning - will replenish. Blood glucose levels improved. 12/12/23: No overnight events noted. Continued pain left buttock- 3/10 on numerical pain scale. Culture with ecoli, sensitivity pending. Continue current abx/dressing changes for now. PICC placed yesterday. 12/13/23: Met and examined bedside. Surgery and PT evaluated wound yesterday for wound vac and unable to place due to location of wound/sufficient tissue in periwound to support vac. Considering alginate in wound bed to promote granulation for possible future use of wound vac. No pain reported today. No other complaints voiced. Denies fever,cough, sob, cp, abdominal pain, MARQUES, dizziness, N/V/D. Cultures pending final. 12/14/23: Patient doing well. Voices no complaints. Wound cultures with Ecoli, bacteroides fragilis, and prevotella disiens. Will dc vanc and continue cefepime/Flagyl. PICC is placed. Dressing changes per surgery. Blood glucose levels stable. Hypoglycemia the past two mornings- will dose reduce lantus to 30uBID. - Review of Systems Constitutional: No Symptoms Eyes: No Symptoms Ears, Nose, & Throat: No Symptoms Respiratory: No Symptoms Cardiac: No Symptoms Abdominal/Gastrointestinal: No Symptoms Genitourinary Symptoms: No Symptoms Musculoskeletal: No Symptoms Skin: Other (Left buttock wound - covered) Neurological: No Symptoms Psychological: No Symptoms Endocrine: No Symptoms Hematologic/Lymphatic: No Symptoms Immunological/Allergic: No Symptoms Objective Exam General Appearance: no apparent distress Neurologic Exam: alert, oriented x 3, cooperative Skin Exam: other (see wound assessment) Wound Assessment: Skin/Wound Assessment Wound/Incision Assessment Start: 12/08/23 19:51 Text: Status: Active Freq: Q6H Protocol: Document 12/14/23 00:00 LB (Rec: 12/14/23 00:14 LB [id number]) Wound/Incision Assessment Left Buttock Wound Assessment Shift Assessment Wound Type Incision Wound Stage Non Pressure Wound Dressing Status Changed Drainage Amount Minimal Drainage Description Serous Drainage Odor None/Absent Topical Solution/Irrigant Saline Irrigant Packing Type Gauze Roll Primary Dressing Absorbant Pad Comment dressing CDI Wound Photo Photo Taken Yes Comment: in chart Eye Exam: PERRL Ears, Nose, Throat Exam: normal ENT inspection Neck Exam: normal inspection Lymphatic Exam: adenopathy Respiratory Exam: normal breath sounds, lungs clear Cardiovascular Exam: regular rate/rhythm, normal heart sounds Gastrointestinal/Abdomen Exam: soft, normal bowel sounds Extremity Exam: normal inspection Back Exam: normal inspection Male Genitalia Exam: deferred Rectal Exam: deferred Objective Data Vital Signs: Vital Signs - 24 hr Temp Pulse Resp BP Pulse Ox 12/14/23 03:54 68 17 12/13/23 23:57 97.8 F 59 L 17 161/66 95 12/13/23 20:00 98.1 F 70 19 136/64 94 L 12/13/23 16:00 97.7 F 66 16 138/61 94 L 12/13/23 12:00 97.7 F 62 16 147/68 96 12/13/23 08:00 97.7 F 69 16 155/67 95 Pain Assessment - Last Documented Pain Intensity 0 Pain Scale Used 0-10 Pain Scale Intake and Output: Intake & Output 12/11/23 12/12/23 12/13/23 12/14/23 11:59 11:59 11:59 11:59 Intake Total 3737 1810 1340 1620 Output Total 8876 1790 2896 5258 [facility] -[phone] 324 Weight 87.5 kg 88.9 kg 86 kg Lab Results: Lab Results-Last 24 Hours 12/13/23 12/13/23 12/13/23 Range/Units 04:26 04:26 08:04 WBC 7.8 (4.23-9.07) x10^3/uL RBC 4.45 L (4.63-6.08) x10^6/uL Hgb 11.8 L (13.7-17.5) g/dL Hct 37.8 L (40.1-51.0) % MCV 84.9 (79.0-92.2) fL MCH 26.5 (25.7-32.2) pg MCHC 31.2 L (32.3-36.5) g/dL RDW 13.8 (11.6-14.4) % Plt Count 178 (163-337) x10^3/uL MPV 10.6 (9.4-12.4) fL Gran % 47.3 (34.0-67.9) % Immature Gran % (Auto) 1.9 H (0.001-0.429) % Nucleat RBC Rel Count 0.0 (0.00-0.2) % Eos # (Auto) 0.24 (0.04-0.54) x10^3/uL Immature Gran # (Auto) 0.15 H (0.001-0.031) x10^3u/L Absolute Lymphs (auto) 2.52 (1.32-3.57) x10^3/uL Absolute Monos (auto) 1.10 H (0.30-0.82) x10^3/uL Absolute Nucleated RBC 0.00 (0.00-0.012) x10^3u/L Lymphocytes % 32.5 (21.8-53.1) % Monocytes % 14.2 H (5.3-12.2) % Eosinophils % 3.1 (0.8-7.0) % Basophils % 1.0 (0.2-1.2) % Absolute Granulocytes 3.67 (1.78-5.38) x10^3/uL Basophils # 0.08 (0.01-0.08) x10^3/uL Sodium 136 (135-145) mmol/L Potassium 3.6 (3.5-5.1) mmol/L Chloride 102 (98-107) mmol/L Carbon Dioxide 29 (22-30) mmol/L Anion Gap 9.1 (5-15) MEQ/L BUN 14 (9-20) mg/dL Creatinine 0.94 (0.66-1.25) mg/dL Estimated GFR 90.5 ML/MIN Glucose 68 L (74-106) mg/dL POC Glucometer 104 (74 to 106) mg/dL Calcium 8.6 (8.4-10.2) mg/dL Total Bilirubin 0.60 (0.2-1.3) mg/dL AST 37 (17-59) U/L ALT 14 (0-50) U/L Alkaline Phosphatase 75 (38-126) U/L Serum Total Protein 6.4 (6.3-8.2) g/dL Albumin 3.1 L (3.5-5.0) g/dL 12/13/23 12/13/23 12/13/23 Range/Units 12:02 16:29 21:02 WBC (4.23-9.07) x10^3/uL RBC (4.63-6.08) x10^6/uL Hgb (13.7-17.5) g/dL Hct (40.1-51.0) % MCV (79.0-92.2) fL MCH (25.7-32.2) pg MCHC (32.3-36.5) g/dL RDW (11.6-14.4) % Plt Count (163-337) x10^3/uL MPV (9.4-12.4) fL Gran % (34.0-67.9) % Immature Gran % (Auto) (0.001-0.429) % Nucleat RBC Rel Count (0.00-0.2) % Eos # (Auto) (0.04-0.54) x10^3/uL Immature Gran # (Auto) (0.001-0.031) x10^3u/L Absolute Lymphs (auto) (1.32-3.57) x10^3/uL Absolute Monos (auto) (0.30-0.82) x10^3/uL Absolute Nucleated RBC (0.00-0.012) x10^3u/L Lymphocytes % (21.8-53.1) % Monocytes % (5.3-12.2) % Eosinophils % (0.8-7.0) % Basophils % (0.2-1.2) % Absolute Granulocytes (1.78-5.38) x10^3/uL Basophils # (0.01-0.08) x10^3/uL Sodium (135-145) mmol/L Potassium (3.5-5.1) mmol/L Chloride (98-107) mmol/L Carbon Dioxide (22-30) mmol/L Anion Gap (5-15) MEQ/L BUN (9-20) mg/dL Creatinine (0.66-1.25) mg/dL Estimated GFR ML/MIN Glucose (74-106) mg/dL POC Glucometer 142 H 152 H 154 H (74 to 106) mg/dL Calcium (8.4-10.2) mg/dL Total Bilirubin (0.2-1.3) mg/dL AST (17-59) U/L ALT (0-50) U/L Alkaline Phosphatase (38-126) U/L Serum Total Protein (6.3-8.2) g/dL Albumin (3.5-5.0) g/dL 12/14/23 Range/Units 04:45 WBC 6.4 (4.23-9.07) x10^3/uL RBC 4.19 L (4.63-6.08) x10^6/uL Hgb 11.3 L (13.7-17.5) g/dL Hct 36.0 L (40.1-51.0) % MCV 85.9 (79.0-92.2) fL MCH 27.0 (25.7-32.2) pg MCHC 31.4 L (32.3-36.5) g/dL RDW 14.0 (11.6-14.4) % Plt Count 158 L (163-337) x10^3/uL MPV 9.8 (9.4-12.4) fL Gran % 52.2 (34.0-67.9) % Immature Gran % (Auto) 1.7 H (0.001-0.429) % Nucleat RBC Rel Count 0.0 (0.00-0.2) % Eos # (Auto) 0.19 (0.04-0.54) x10^3/uL Immature Gran # (Auto) 0.11 H (0.001-0.031) x10^3u/L Absolute Lymphs (auto) 1.76 (1.32-3.57) x10^3/uL Absolute Monos (auto) 0.94 H (0.30-0.82) x10^3/uL Absolute Nucleated RBC 0.00 (0.00-0.012) x10^3u/L Lymphocytes % 27.6 (21.8-53.1) % Monocytes % 14.7 H (5.3-12.2) % Eosinophils % 3.0 (0.8-7.0) % Basophils % 0.8 (0.2-1.2) % Absolute Granulocytes 3.33 (1.78-5.38) x10^3/uL Basophils # 0.05 (0.01-0.08) x10^3/uL Sodium (135-145) mmol/L Potassium (3.5-5.1) mmol/L Chloride (98-107) mmol/L Carbon Dioxide (22-30) mmol/L Anion Gap (5-15) MEQ/L BUN (9-20) mg/dL Creatinine (0.66-1.25) mg/dL Estimated GFR ML/MIN Glucose (74-106) mg/dL POC Glucometer (74 to 106) mg/dL Calcium (8.4-10.2) mg/dL Total Bilirubin (0.2-1.3) mg/dL AST (17-59) U/L ALT (0-50) U/L Alkaline Phosphatase (38-126) U/L Serum Total Protein (6.3-8.2) g/dL Albumin (3.5-5.0) g/dL Multi-Disciplinary Progress Notes: Multi-Disciplinary Progress Notes 12/13/23 17:29 Physical Therapy Note by Demi(Joey#[id number]),Stephanie PT. WAS SEEN BY PArun LOPEZ A.M. RATES L L BUTTOCK PN AT 09/14. CONT. W/ WET TO DRY DRESSINGS PER NSG. PT. IN BED UPON P.T. ARRIVAL TO ROOM. RN REPORTED PT. ABLE TO AMBULATE TO TOILET W/ ROLLATOR W/ SBA AND HAVE B.M. PERFORMED SUPINE TO SIT W/ MIN ASSIST - L BUTTOCK PN NOTED W/ TRANSFER AND WB ON L BUTTOCK. PERFORMED SIT TO STAND W/ CGA-SBA. AMBULATED ~100' W/ ROLLATOR AND CGA FOR ROLLATOR SPEED CONTROL, AND HIS DIABETIC SHOES. PT. HAS SAT IN CHAIR FOR BREAKFAST AND DID NOT WANT TO REMAIN SITTING AFTER WALKING. NOTED IMPROVED GAIT STABILITY AND TOLERANCE THIS DATE. WILL CONT. P.T. 5X/WK UNTIL D/C TO ADDRESS FUNCTIONAL DEFICITS AND ASSIST W/ WOUND RECOMMENDATIONS. Initialized on 12/13/23 17:29 - END OF NOTE 12/13/23 14:41 Physical Therapy Note by Orin(L#[id number])Laura PATIENT SEEN IN P.M. FOR FUNCTIONAL MOBILITY AND EXERCISE. PATIENT IN BED UPON ARRIVAL. SAT ON EDGE OF BED INDEP USING BEDRAIL ASSIST FOR SUPINE TO SIT. SITTING ON EDGE OF BED PERFORMED HIP FLEXION, KNEE EXTENSION/FLEXION, HIP ABD/ADDUCTION. PATIENT UNABLE TO PUT SHOES ON WHILE SITTING ON EDGE OF BED SO THERAPIST ASSISTED. STOOD WITH CUES FOR HAND PLACEMENT. AMBULATED 140' X 1 WITH ROLLATOR. PATIENT OBTAINING FOOT CLEARANCE 100% OF TIME BUT STILL NOTING LEFT LOWER EXTREMTIY TENDS TO ADDUCT. NO TRUE SCISSORING BUT CUES TO SLOW PACE AND BE OBSERVANT OF LEFT FOOT PLACEMENT PATIENT HAS DECREASED SENSATION DUE TO NEUROPATHY. IN STANDING AT BEDSIDE PATIENT HAD ONE LOSS OF BALANCE WHEN TURNING TO GO BACK IN BED REQUIRING CONTACT GUARD OF THERAPIST. INSTRUCTED PATIENT TO USE CALL LIGHT IF HE HAD TO GO TO RESTROOM AND UP WITH ASSIST ONLY. CONTINUE TO SEE PATIENT 5X WEEK DURING HOSPITALIZATION TO INCREASE SAFETY WITH AMBULATION, STRENGTH AND ENDURANCE. Initialized on 12/13/23 14:41 - END OF NOTE 12/13/23 12:31 Case Management Note by Judit Davidson NO CHANGE IN DC PLANS AT THIS TIME- MEDICINE TO FIGURE OUT ANTIBIOTICS AND SURGERY TO CONTINUE TO MONITOR WOUNDS Initialized on 12/13/23 12:31 - END OF NOTE Assessment/Plan (1) DKA (diabetic ketoacidosis) Current Visit: Yes Status: Acute Assessment & Plan: -DKA protocol with insulin gtt initially - now resolved - Lantus started 35 units BID, Humalog s/s moderate dosing, Humalog 10 units with meals, accuchecks ac/hs - Carb consistent diet -A1c > 14 12/12/23: -Blood glucose levels stable, continue current insulin regimen Code(s): E11.10 - TYPE 2 DIABETES MELLITUS WITH KETOACIDOSIS WITHOUT COMA (2) Necrotizing fasciitis Current Visit: Yes Status: Acute Assessment & Plan: -CT imaging 12/08/23 with left perianal abscess with cellulitis concerning for necrotizing soft tissue infection - Antimicrobial history: Cefepime/Flagyl/Vancomycin -concern for worsening infection 12/09/23 - CT pelvis (12/09/23) Showing status of post drainage of the former collection, there is Interval soft tissue loss in the left gluteal cleft with mild fat stranding without signs of fluid collection, abscess formation, or significant hemorrhage. the rest of the scan is stable - Discussed case with Edwin, wound is improving, no further surgical intervention as of now, plan to monitor with IV abx and wound care- consider wound vac - may be good candidate for swing bed 12/12/23 -Wound culture with ECOLI, sensitivity pending -PICC placed- most likely will need 2 weeks of abx 12/13/23: -continue current IV abx until final culture results -Unable to place wound vac at this time - may consider in future - will attempt calcium alginate to promote granulation per PT notes 12/13: -Wound cultures with Ecoli, bacteroides fragilis, and prevotella disiens. Will dc vanc and continue cefepime/Flagyl based on sensitivities -dressing changes per surgery -consider swing bed Code(s): M72.6 - NECROTIZING FASCIITIS (3) Perianal abscess Current Visit: Yes Status: Acute Assessment & Plan: -Antimicrobial history stated in necrotizing fasciitis plan - s/p I&D - Masha-rectal Cultures pending - WBC 11.6 - BC x2 pending -NGTD - [place] in place for wound healing in ICU pt. 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 - Hold Plavix x2 days per surgery - PT/OT - Prostat 64 protein supplement added daily to aide in wound healing 12/11: -Plavix/ASA resumed -see necrotizing faciitis -continue above plan-will have wound vac placed Code(s): K61.0 - ANAL ABSCESS (4) Uncontrolled type II diabetes mellitus Current Visit: Yes Status: Acute Qualifiers: Glycemic state: with hyperglycemia Qualified Code(s): E11.65 - Type 2 diabetes mellitus with hyperglycemia Assessment & Plan: - A1C > 14 -ADA diet - carb consistent diet -Lispro [id number]/SSI -Glargine 30 U BID Code(s): [id number] - (5) Obesity (BMI 30.0-34.9) Current Visit: Yes Status: Acute Assessment & Plan: - advised ADA diet and exercise control Code(s): E66.9 - OBESITY, UNSPECIFIED (6) Hypophosphatemia Current Visit: Yes Status: Acute Assessment & Plan: -phos at 2.5 -wnL - resolved Code(s): E83.39 - OTHER DISORDERS OF PHOSPHORUS METABOLISM (7) Type 2 diabetes mellitus with diabetic chronic kidney disease Current Visit: No Status: Chronic Qualifiers: Diabetes mellitus mcc insulin use: with mcc use Chronic kidney disease stage: stage 3 (moderate) Chronic kidney disease stage 3 subtype: stage 3b (GFR 30-44) Qualified Code(s): E11.22 - Type 2 diabetes mellitus with diabetic chronic kidney disease; N18.32 - Chronic kidney disease, stage 3b; Z79.4 - custodial (current) use of insulin Assessment & Plan: - see uncontrolled diabetes above -Baseline creat around 1.5 - now wnl VTE: SCD's /Next of KIN: Marianna Yulisa [phone] D/C plan: 2-3 days Code(s): E11.10 - TYPE 2 DIABETES MELLITUS WITH KETOACIDOSIS WITHOUT COMA (2) Necrotizing fasciitis Current Visit: Yes Status: Acute Code(s): M72.6 - NECROTIZING FASCIITIS (3) Perianal abscess Current Visit: Yes Status: Acute Code(s): K61.0 - ANAL ABSCESS (4) Uncontrolled type II diabetes mellitus Current Visit: Yes Status: Acute Qualifiers: Glycemic state: with hyperglycemia Qualified Code(s): E11.65 - Type 2 diabetes mellitus with hyperglycemia Code(s): [id number] - Code(s): E11.10 - TYPE 2 DIABETES MELLITUS WITH KETOACIDOSIS WITHOUT COMA (2) Necrotizing fasciitis Current Visit: Yes Status: Acute Code(s): M72.6 - NECROTIZING FASCIITIS (3) Perianal abscess Current Visit: Yes Status: Acute Code(s): K61.0 - ANAL ABSCESS (4) Uncontrolled type II diabetes mellitus Current Visit: Yes Status: Acute Qualifiers: Glycemic state: with hyperglycemia Qualified Code(s): E11.65 - Type 2 diabetes mellitus with hyperglycemia Code(s): [id number] - (5) Obesity (BMI 30.0-34.9) Current Visit: Yes Status: Acute Code(s): E66.9 - OBESITY, UNSPECIFIED (6) Hypophosphatemia Current Visit: Yes Status: Acute Code(s): E83.39 - OTHER DISORDERS OF PHOSPHORUS METABOLISM (7) Type 2 diabetes mellitus with diabetic chronic kidney disease Current Visit: No Status: Chronic Qualifiers: Diabetes mellitus terminal operator insulin use: with terminal operator use Chronic kidney disease stage: stage 3 (moderate) Chronic kidney disease stage 3 subtype: stage 3b (GFR 30-44) Qualified Code(s): E11.22 - Type 2 diabetes mellitus with diabetic chronic kidney disease; N18.32 - Chronic kidney disease, stage 3b; Z79.4 - custodial (current) use of insulin Code(s): E11.22 - TYPE 2 DIABETES MELLITUS W DIABETIC CHRONIC KIDNEY DISEASE (8) Hypokalemia Current Visit: Yes Status: Acute Code(s): E87.6 - HYPOKALEMIA
[2023-12-14 05:17] LABS: ALBUMIN 3.1 g/dL (3.5-5.0); ANION GAP 8.5 MEQ/L (5-15); BILIRUBIN,TOTAL 0.5 mg/dL (0.2-1.3); Calcium 8.6 mg/dL (8.4-10.2); Creatinine 1 1.07 mg/dL (0.66-1.25); EST GLOMERULAR FILTRATION RATE 77.5 ML/MIN; Potassium 3.5 mmol/L (3.5-5.1); Total Protein 6.3 g/dL (6.3-8.2)
--- NOTE | 2023-12-14 07:46 | PROG NOTE ---
Patient had debridement a few days ago. There was consideration possible wound VAC. He was rolled to the right. The mid left cheek with the mid portion of the wound actually lining up with the mid part of the anus. The wound was up to 4 inches deep. Most of it is about 2-1/2, 3 inches but the bottom inferior corner is about 4 inches. It is mostly clean. The anterior upper upside is particularly clean. The backside towards the anus is a little grungier but not much. I do not think there is any way that a wound VAC would stick here against the anus. There is only about a 1.5 cm of skin for about a 2-inch distance there right by the anus. I just do not think it is happening. Continue saline wet-to-dry and it may need temporarily closed eventually loosely with some light chromic stitches over a drain or very loose.
[2023-12-14] MEDS: TROUGH DRUG LEVELS IJ ONE (10:42)
[2023-12-14] MEDS: Lantus Insulin SQ SCH (23:09)
[2023-12-15 05:10] LABS: Absolute Neutrophil Ct (ANC) 2.63 x10^3/uL (1.78-5.38); Basophil (Absolute #) 0.05 x10^3/uL (0.01-0.08); Eosinophil % 4.6 % (0.8-7.0); Eosinophil (Absolute #) 0.24 x10^3/uL (0.04-0.54); Hematocrit 34.1 % (40.1-51.0); Hemoglobin 10.6 g/dL (13.7-17.5); IMMATURE GRAN % 1.9 % (0.001-0.429); Lymphocyte (Absolute #) 1.36 x10^3/uL (1.32-3.57); Lymphocytes % 26.2 % (21.8-53.1); Mean Cell Volume 85.3 fL (79.0-92.2); Mean Corpuscular Hemoglobin 26.5 pg (25.7-32.2); Mean Corpuscular Hgb Concent. 31.1 g/dL (32.3-36.5); Mean Platelet Volume 10.2 fL (9.4-12.4); Monocyte (Absolute #) 0.82 x10^3/uL (0.30-0.82); Monocytes % 15.8 % (5.3-12.2); Neutrophil % 50.5 % (34.0-67.9); Platelet Count 161 x10^3/uL (163-337); Red Cell Distribution Width 14.3 % (11.6-14.4); White Blood Count 5.2 x10^3/uL (4.23-9.07)
--- NOTE | 2023-12-15 05:21 | PCM.NOTE ---
Date and Time: 12/15/23 0519 Subjective Assessment: Mr. Bians is a 63 year old male with a pmhx of HTN, Type II DM, CABG, and obesity admitted 12/08/23 with Admitted 12/08/23 with DKA/ perirectal abscess and necrotizing fasciitis. CT abd/pelvis performed in ED appearances shows fat stranding with extraluminal soft tissue gas in the left perianal soft tissues a long the left gluteal cleft extending to the left ischiorectal fossa. Findings suggestive of left perianal abscess with cellulitis concerning for necrotizing soft tissue infection. Surgery consulted and I&D performed. IP antimicrobials including Cefepime, Flagyl, and Vancomycin. Blood and urine cultures NGTD. Perirectal cultures with Ecoli, bacteroides fragilis, and prevotella disiens . Vancomycin d/cd 12/14/23. Cefepime/flagyl continued. DKA has resolved. 12/11/23: Met with patient bedside. Endorses continued pain in buttocks with a 5/10 numerical rating. Discussed case with Dr. Penelope Ramirez, wound is looking better -no plans for further surgical intervention. Most likely will need hospitalization for another week and two week of antibiotics. May be a good candidate for swing bed - will discuss with CM. May consider wound vac although placement may be difficult and uncomfortable. Labs showing hypokalemia this morning - will replenish. Blood glucose levels improved. 12/12/23: No overnight events noted. Continued pain left buttock- 3/10 on numerical pain scale. Culture with ecoli, sensitivity pending. Continue current abx/dressing changes for now. PICC placed yesterday. 12/13/23: Met and examined bedside. Surgery and PT evaluated wound yesterday for wound vac and unable to place due to location of wound/sufficient tissue in periwound to support vac. Considering alginate in wound bed to promote granulation for possible future use of wound vac. No pain reported today. No other complaints voiced. Denies fever,cough, sob, cp, abdominal pain, MARQUES, dizziness, N/V/D. Cultures pending final. 12/14/23: Patient doing well. Voices no complaints. Wound cultures with Ecoli, bacteroides fragilis, and prevotella disiens. Will dc vanc and continue cefepime/Flagyl. PICC is placed. Dressing changes per surgery. Blood glucose levels stable. Hypoglycemia the past two mornings- will dose reduce lantus to 30uBID. Objective Exam Wound Assessment: Skin/Wound Assessment Wound/Incision Assessment Start: 12/08/23 19:51 Text: Status: Active Freq: Q6H Protocol: Document 12/15/23 00:00 LB (Rec: 12/15/23 00:41 LB [id number]) Wound/Incision Assessment Left Buttock Wound Assessment Shift Assessment Wound Type Incision Wound Stage Non Pressure Wound Dressing Status Changed Drainage Amount None Drainage Description Serous Packing Type Gauze Roll Primary Dressing border mode Secondary Dressing ABD Comment dressing changed, repacked Wound Photo Photo Taken Yes Comment: in chart Objective Data Vital Signs: Vital Signs - 24 hr Temp Pulse Resp BP Pulse Ox 12/15/23 04:00 97.6 F 67 17 136/64 95 12/15/23 00:00 97.4 F 79 18 130/60 96 12/14/23 19:55 97.2 F 69 18 131/60 94 L 12/14/23 16:00 97.8 F 66 17 158/64 94 L 12/14/23 12:00 97.9 F 64 16 142/67 95 12/14/23 08:00 97.6 F 66 16 136/62 91 L Pain Assessment - Last Documented Pain Intensity 0 Pain Scale Used [facility] Intake and Output: Intake & Output 12/12/23 12/13/23 12/14/23 12/15/23 11:59 11:59 11:59 11:59 Intake Total 1810 1340 2460 1713 Output Total 6028 3355 2600 [facility] Balance -4240 -1785 -140 -262 Weight 88.9 kg 86 kg 85.7 kg Lab Results: Lab Results-Last 24 Hours 12/14/23 12/14/23 12/14/23 Range/Units 04:45 07:52 09:45 WBC (4.23-9.07) x10^3/uL RBC (4.63-6.08) x10^6/uL Hgb (13.7-17.5) g/dL Hct (40.1-51.0) % MCV (79.0-92.2) fL MCH (25.7-32.2) pg MCHC (32.3-36.5) g/dL RDW (11.6-14.4) % Plt Count (163-337) x10^3/uL MPV (9.4-12.4) fL Gran % (34.0-67.9) % Immature Gran % (Auto) (0.001-0.429) % Nucleat RBC Rel Count (0.00-0.2) % Eos # (Auto) (0.04-0.54) x10^3/uL Immature Gran # (Auto) (0.001-0.031) x10^3u/L Absolute Lymphs (auto) (1.32-3.57) x10^3/uL Absolute Monos (auto) (0.30-0.82) x10^3/uL Absolute Nucleated RBC (0.00-0.012) x10^3u/L Lymphocytes % (21.8-53.1) % Monocytes % (5.3-12.2) % Eosinophils % (0.8-7.0) % Basophils % (0.2-1.2) % Absolute Granulocytes (1.78-5.38) x10^3/uL Basophils # (0.01-0.08) x10^3/uL Sodium 137 (135-145) mmol/L Potassium 3.5 (3.5-5.1) mmol/L Chloride 102 (98-107) mmol/L Carbon Dioxide 30 (22-30) mmol/L Anion Gap 8.5 (5-15) MEQ/L BUN 21 H (9-20) mg/dL Creatinine 1.07 (0.66-1.25) mg/dL Estimated GFR 77.5 ML/MIN Glucose 72 L (74-106) mg/dL POC Glucometer 89 (74 to 106) mg/dL Calcium 8.6 (8.4-10.2) mg/dL Total Bilirubin 0.50 (0.2-1.3) mg/dL AST 42 (17-59) U/L ALT 17 (0-50) U/L Alkaline Phosphatase 77 (38-126) U/L Serum Total Protein 6.3 (6.3-8.2) g/dL Albumin 3.1 L (3.5-5.0) g/dL Vancomycin Trough 13.61 (10-20) ug/mL 08/12/2912/14/23 12/14/23 Range/Units 11:47 17:16 19:39 WBC (4.23-9.07) x10^3/uL RBC (4.63-6.08) x10^6/uL Hgb (13.7-17.5) g/dL Hct (40.1-51.0) % MCV (79.0-92.2) fL MCH (25.7-32.2) pg MCHC (32.3-36.5) g/dL RDW (11.6-14.4) % Plt Count (163-337) x10^3/uL MPV (9.4-12.4) fL Gran % (34.0-67.9) % Immature Gran % (Auto) (0.001-0.429) % Nucleat RBC Rel Count (0.00-0.2) % Eos # (Auto) (0.04-0.54) x10^3/uL Immature Gran # (Auto) (0.001-0.031) x10^3u/L Absolute Lymphs (auto) (1.32-3.57) x10^3/uL Absolute Monos (auto) (0.30-0.82) x10^3/uL Absolute Nucleated RBC (0.00-0.012) x10^3u/L Lymphocytes % (21.8-53.1) % Monocytes % (5.3-12.2) % Eosinophils % (0.8-7.0) % Basophils % (0.2-1.2) % Absolute Granulocytes (1.78-5.38) x10^3/uL Basophils # (0.01-0.08) x10^3/uL Sodium (135-145) mmol/L Potassium (3.5-5.1) mmol/L Chloride (98-107) mmol/L Carbon Dioxide (22-30) mmol/L Anion Gap (5-15) MEQ/L BUN (9-20) mg/dL Creatinine (0.66-1.25) mg/dL Estimated GFR ML/MIN Glucose (74-106) mg/dL POC Glucometer 166 H 242 H 302 H (74 to 106) mg/dL Calcium (8.4-10.2) mg/dL Total Bilirubin (0.2-1.3) mg/dL AST (17-59) U/L ALT (0-50) U/L Alkaline Phosphatase (38-126) U/L Serum Total Protein (6.3-8.2) g/dL Albumin (3.5-5.0) g/dL Vancomycin Trough (10-20) ug/mL 12/14/23 12/15/23 Range/Units 22:07 04:50 WBC 5.2 (4.23-9.07) x10^3/uL RBC 4.00 L (4.63-6.08) x10^6/uL Hgb 10.6 L (13.7-17.5) g/dL Hct 34.1 L (40.1-51.0) % MCV 85.3 (79.0-92.2) fL MCH 26.5 (25.7-32.2) pg MCHC 31.1 L (32.3-36.5) g/dL RDW 14.3 (11.6-14.4) % Plt Count 161 L (163-337) x10^3/uL MPV 10.2 (9.4-12.4) fL Gran % 50.5 (34.0-67.9) % Immature Gran % (Auto) 1.9 H (0.001-0.429) % Nucleat RBC Rel Count 0.0 (0.00-0.2) % Eos # (Auto) 0.24 (0.04-0.54) x10^3/uL Immature Gran # (Auto) 0.10 H (0.001-0.031) x10^3u/L Absolute Lymphs (auto) 1.36 (1.32-3.57) x10^3/uL Absolute Monos (auto) 0.82 (0.30-0.82) x10^3/uL Absolute Nucleated RBC 0.00 (0.00-0.012) x10^3u/L Lymphocytes % 26.2 (21.8-53.1) % Monocytes % 15.8 H (5.3-12.2) % Eosinophils % 4.6 (0.8-7.0) % Basophils % 1.0 (0.2-1.2) % Absolute Granulocytes 2.63 (1.78-5.38) x10^3/uL Basophils # 0.05 (0.01-0.08) x10^3/uL Sodium (135-145) mmol/L Potassium (3.5-5.1) mmol/L Chloride (98-107) mmol/L Carbon Dioxide (22-30) mmol/L Anion Gap (5-15) MEQ/L BUN (9-20) mg/dL Creatinine (0.66-1.25) mg/dL Estimated GFR ML/MIN Glucose (74-106) mg/dL POC Glucometer 182 H (74 to 106) mg/dL Calcium (8.4-10.2) mg/dL Total Bilirubin (0.2-1.3) mg/dL AST (17-59) U/L ALT (0-50) U/L Alkaline Phosphatase (38-126) U/L Serum Total Protein (6.3-8.2) g/dL Albumin (3.5-5.0) g/dL Vancomycin Trough (10-20) ug/mL Multi-Disciplinary Progress Notes: Multi-Disciplinary Progress Notes 12/14/23 18:12 Physical Therapy Note by Penny Geiger PATIENT SEEN IN P.M. FOR FUNCTIONAL MOBILITY AND GAIT. UPON ARRIVAL,OF [facility], SURINDER WAS IN BED, SEMI-RECLINED POSITION. HE WAS AGREEABLE TO THERAPY TX. PT USED BEDRIAL TO ASSIST FROM SUPINE TO SIT, WAS ABLE TO SIT ON EDGE OF BED INDEPENDENTLY.DUE TO PATIENT BEING UNABLE TO PUT SHOES ON WHILE SITTING ON EDGE OF BED, THERAPIST ASSISTED. CUING REQUIRED FOR SAFETY PLACEMENT OF HANDS. AMBULATED 140' X 1 WITH RW. LEFT LOWER EXTREMITY TENDS TO ADDUCT WITH AMBULATION, REQUIRING CUING TO TAKE LARGE STEPS. SOME SLIGHT LOB WITH AMBULATION BUT PT WAS ABLE TO SELF CORRECT. PT WAS ASSISTED BACK INTO BED AT END OF TX, WITH CALL LIGHT IN REACH, IN SEMI-RECLINED POSITION PER PT REQUEST. NURSING AID WAS PRESENT. (TREATMENT TIME FROM 14:40-13:00) Initialized on 12/14/23 18:12 - END OF NOTE 12/14/23 11:18 Case Management Note by Judit Davidson DISCUSSED WITH PATIENT THAT WE ARE STILL COLLABORATING TO DISCUSS BEST CARE FOR HIM WITH HIS NEEDS FOR ANTIBIOTICS AND WOUND CARE. S/O PRESENT- SHE STATED SHE COULD DO DRESSING CHANGES AT HOME BUT SHE WOULD BE THE ONLY AVAILABLE ONE. SHE ALSO REPORTED SHE COULD PROVIDE ANY TRANSPORTATION NEEDED FOR PATIENT WELL Initialized on 12/14/23 11:18 - END OF NOTE Assessment/Plan (1) DKA (diabetic ketoacidosis) Current Visit: Yes Status: Acute Assessment & Plan: -DKA protocol with insulin gtt initially - now resolved - Lantus started 35 units BID, Humalog s/s moderate dosing, Humalog 10 units with meals, accuchecks ac/hs - Carb consistent diet -A1c > 14 12/12/23: -Blood glucose levels stable, continue current insulin regimen Code(s): E11.10 - TYPE 2 DIABETES MELLITUS WITH KETOACIDOSIS WITHOUT COMA (2) Necrotizing fasciitis Current Visit: Yes Status: Acute Assessment & Plan: -CT imaging 12/08/23 with left perianal abscess with cellulitis concerning for necrotizing soft tissue infection - Antimicrobial history: Cefepime/Flagyl/Vancomycin -concern for worsening infection 12/09/23 - CT pelvis (12/09/23) Showing status of post drainage of the former collection, there is Interval soft tissue loss in the left gluteal cleft with mild fat stranding without signs of fluid collection, abscess formation, or significant hemorrhage. the rest of the scan is stable - Discussed case with Edwin, wound is improving, no further surgical intervention as of now, plan to monitor with IV abx and wound care- consider wound vac - may be good candidate for swing bed 12/12/23 -Wound culture with ECOLI, sensitivity pending -PICC placed- most likely will need 2 weeks of abx 12/13/23: -continue current IV abx until final culture results -Unable to place wound vac at this time - may consider in future - will attempt calcium alginate to promote granulation per PT notes 12/13: -Wound cultures with Ecoli, bacteroides fragilis, and prevotella disiens. Will dc vanc and continue cefepime/Flagyl based on sensitivities -dressing changes per surgery -consider swing bed Code(s): M72.6 - NECROTIZING FASCIITIS (3) Perianal abscess Current Visit: Yes Status: Acute Assessment & Plan: -Antimicrobial history stated in necrotizing fasciitis plan - s/p I&D - Masha-rectal Cultures pending - WBC 11.6 - BC x2 pending -NGTD - [place] in place for wound healing in ICU pt. 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 - Hold Plavix x2 days per surgery - PT/OT - Prostat 64 protein supplement added daily to aide in wound healing 12/11: -Plavix/ASA resumed -see necrotizing faciitis -continue above plan-will have wound vac placed Code(s): K61.0 - ANAL ABSCESS (4) Uncontrolled type II diabetes mellitus Current Visit: Yes Status: Acute Qualifiers: Glycemic state: with hyperglycemia Qualified Code(s): E11.65 - Type 2 diabetes mellitus with hyperglycemia Assessment & Plan: - A1C > 14 -ADA diet - carb consistent diet -Lispro [id number]/SSI -Glargine 30 U BID Code(s): [id number] - (5) Obesity (BMI 30.0-34.9) Current Visit: Yes Status: Acute Assessment & Plan: - advised ADA diet and exercise control Code(s): E66.9 - OBESITY, UNSPECIFIED (6) Hypophosphatemia Current Visit: Yes Status: Acute Assessment & Plan: -phos at 2.5 -wnL - resolved Code(s): E83.39 - OTHER DISORDERS OF PHOSPHORUS METABOLISM (7) Type 2 diabetes mellitus with diabetic chronic kidney disease Current Visit: No Status: Chronic Qualifiers: Diabetes mellitus senior living insulin use: with intermediate accountant use Chronic kidney disease stage: stage 3 (moderate) Chronic kidney disease stage 3 subtype: stage 3b (GFR 30-44) Qualified Code(s): E11.22 - Type 2 diabetes mellitus with diabetic chronic kidney disease; N18.32 - Chronic kidney disease, stage 3b; Z79.4 - long-term (current) use of insulin Assessment & Plan: - see uncontrolled diabetes above -Baseline creat around 1.5 - now wnl VTE: SCD's /Next of KIN: Marianna Yulisa [phone] D/C plan: 2-3 days Code(s): E11.10 - TYPE 2 DIABETES MELLITUS WITH KETOACIDOSIS WITHOUT COMA (2) Necrotizing fasciitis Current Visit: Yes Status: Acute Code(s): M72.6 - NECROTIZING FASCIITIS (3) Perianal abscess Current Visit: Yes Status: Acute Code(s): K61.0 - ANAL ABSCESS (4) Uncontrolled type II diabetes mellitus Current Visit: Yes Status: Acute Qualifiers: Glycemic state: with hyperglycemia Qualified Code(s): E11.65 - Type 2 diabetes mellitus with hyperglycemia Code(s): [id number] - (5) Obesity (BMI 30.0-34.9) Current Visit: Yes Status: Acute Code(s): E66.9 - OBESITY, UNSPECIFIED (6) Hypophosphatemia Current Visit: Yes Status: Acute Code(s): E83.39 - OTHER DISORDERS OF PHOSPHORUS METABOLISM (7) Type 2 diabetes mellitus with diabetic chronic kidney disease Current Visit: No Status: Chronic Qualifiers: Diabetes mellitus senior living insulin use: with intermediate accountant use Chronic kidney disease stage: stage 3 (moderate) Chronic kidney disease stage 3 subtype: stage 3b (GFR 30-44) Qualified Code(s): E11.22 - Type 2 diabetes mellitus with diabetic chronic kidney disease; N18.32 - Chronic kidney disease, stage 3b; Z79.4 - intermediate accountant (current) use of insulin Code(s): E11.22 - TYPE 2 DIABETES MELLITUS W DIABETIC CHRONIC KIDNEY DISEASE (8) Hypokalemia Current Visit: Yes Status: Acute Code(s): E87.6 - HYPOKALEMIA
[2023-12-15 05:41] LABS: ALBUMIN 2.7 g/dL (3.5-5.0); ANION GAP 9.1 MEQ/L (5-15); BILIRUBIN,TOTAL 0.3 mg/dL (0.2-1.3); Calcium 8.4 mg/dL (8.4-10.2); Creatinine 1 1.07 mg/dL (0.66-1.25); EST GLOMERULAR FILTRATION RATE 77.5 ML/MIN; Potassium 3.7 mmol/L (3.5-5.1); Total Protein 5.5 g/dL (6.3-8.2)
[2023-12-15 07:02] VITALS: RESP 16
[2023-12-15] MEDS ORDERED: PHARMACY DOSING REQUEST MC ONE (09:46)
[2023-12-15 12:09] VITALS: BP 142/65; PULSE 63; TEMP 97.7; O2SAT 97
--- NOTE | 2023-12-15 12:20 | PCM.DS ---
Discharge Summary Date of Admission: 12/08/23 17:50 Date of Discharge: 12/15/23 Admitting Physician: CHAPINCITO DANIELSON MD Primary Care Provider: KENNEY CHOWDHURY Allergies Allergies Penicillins Allergy (Verified 12/08/23 09:42) states "don't know, my mom just always said that" Hospital Summary - Hospital Course Hospital Course: Mr. Bains is a 63 year old male with a pmhx of HTN, Type II DM, CABG, and obesity admitted 12/08/23 with Admitted 12/08/23 with DKA/ perirectal abscess and necrotizing fasciitis. CT abd/pelvis performed in ED appearances shows fat stranding with extraluminal soft tissue gas in the left perianal soft tissues along the left gluteal cleft extending to the left ischiorectal fossa. Findings suggestive of left perianal abscess with cellulitis concerning for necrotizing soft tissue infection. Surgery consulted and I&D performed. IP antimicrobials including Cefepime, Flagyl, and Vancomycin. Blood and urine cultures NGTD. Perirectal cultures with Ecoli, bacteroides fragilis, and prevotella disiens . Vancomycin d/cd 12/14/23. Cefepime/flagyl continued. DKA has resolved. 12/11/23: Met with patient bedside. Endorses continued pain in buttocks with a 5/10 numerical rating. Discussed case with Dr. Penelope Ramirez, wound is looking better -no plans for further surgical intervention. Most likely will need hospitalization for another week and two week of antibiotics. May be a good candidate for swing bed - will discuss with CM. May consider wound vac although placement may be difficult and uncomfortable. Labs showing hypokalemia this morning - will replenish. Blood glucose levels improved. 12/12/23: No overnight events noted. Continued pain left buttock- 3/10 on numerical pain scale. Culture with ecoli, sensitivity pending. Continue current abx/dressing changes for now. PICC placed yesterday. 12/13/23: Met and examined bedside. Surgery and PT evaluated wound yesterday for wound vac and unable to place due to location of wound/sufficient tissue in periwound to support vac. Considering alginate in wound bed to promote granulation for possible future use of wound vac. No pain reported today. No other complaints voiced. Denies fever,cough, sob, cp, abdominal pain, MARQUES, dizziness, N/V/D. Cultures pending final. 12/14/23: Patient doing well. Voices no complaints. Wound cultures with Ecoli, bacteroides fragilis, and prevotella disiens. Will dc vanc and continue cefepime/Flagyl. PICC is placed. Dressing changes per surgery. Blood glucose levels stable. Hypoglycemia the past two mornings- will dose reduce lantus to 30uBID. 12/15/23: Patient continues to do well. Pain only with dressing changes. Blood glucose levels remain stable. Patient is stable for swing bed admission. Patient to transition to swing bed today for continued wound and abx therapy. Surgery to follow. - Vitals & Intake/Output Vital Signs: Vital Signs Temperature 97.7 F 12/15/23 12:00 Pulse Rate 63 12/15/23 12:00 Respiratory Rate 16 12/15/23 12:00 Blood Pressure 142/65 12/15/23 12:00 O2 Sat by Pulse Oximetry 97 12/15/23 12:00 Intake & Output: Intake & Output 12/13/23 12/14/23 12/15/23 12/16/23 11:59 11:59 11:59 11:59 Intake Total 1340 2460 2193 Output Total 3125 2600 1975 Balance -1785 -140 218 Weight 86 kg 85.7 kg 86.1 kg - Lab Result Diagrams: 12/15/23 04:50 12/15/23 04:50 Lab Results-Last 24 Hrs: Lab Results-Last 24 Hours 12/14/23 12/14/23 12/14/23 Range/Units 17:16 19:39 22:07 WBC (4.23-9.07) x10^3/uL RBC (4.63-6.08) x10^6/uL Hgb (13.7-17.5) g/dL Hct (40.1-51.0) % MCV (79.0-92.2) fL MCH (25.7-32.2) pg MCHC (32.3-36.5) g/dL RDW (11.6-14.4) % Plt Count (163-337) x10^3/uL MPV (9.4-12.4) fL Gran % (34.0-67.9) % Immature Gran % (Auto) (0.001-0.429) % Nucleat RBC Rel Count (0.00-0.2) % Eos # (Auto) (0.04-0.54) x10^3/uL Immature Gran # (Auto) (0.001-0.031) x10^3u/L Absolute Lymphs (auto) (1.32-3.57) x10^3/uL Absolute Monos (auto) (0.30-0.82) x10^3/uL Absolute Nucleated RBC (0.00-0.012) x10^3u/L Lymphocytes % (21.8-53.1) % Monocytes % (5.3-12.2) % Eosinophils % (0.8-7.0) % Basophils % (0.2-1.2) % Absolute Granulocytes (1.78-5.38) x10^3/uL Basophils # (0.01-0.08) x10^3/uL Sodium (135-145) mmol/L Potassium (3.5-5.1) mmol/L Chloride (98-107) mmol/L Carbon Dioxide (22-30) mmol/L Anion Gap (5-15) MEQ/L BUN (9-20) mg/dL Creatinine (0.66-1.25) mg/dL Estimated GFR ML/MIN Glucose (74-106) mg/dL POC Glucometer 242 H 302 H 182 H (74 to 106) mg/dL Calcium (8.4-10.2) mg/dL Total Bilirubin (0.2-1.3) mg/dL AST (17-59) U/L ALT (0-50) U/L Alkaline Phosphatase (38-126) U/L Serum Total Protein (6.3-8.2) g/dL Albumin (3.5-5.0) g/dL 12/15/23 12/15/23 12/15/23 Range/Units 04:50 04:50 07:10 WBC 5.2 (4.23-9.07) x10^3/uL RBC 4.00 L (4.63-6.08) x10^6/uL Hgb 10.6 L (13.7-17.5) g/dL Hct 34.1 L (40.1-51.0) % MCV 85.3 (79.0-92.2) fL MCH 26.5 (25.7-32.2) pg MCHC 31.1 L (32.3-36.5) g/dL RDW 14.3 (11.6-14.4) % Plt Count 161 L (163-337) x10^3/uL MPV 10.2 (9.4-12.4) fL Gran % 50.5 (34.0-67.9) % Immature Gran % (Auto) 1.9 H (0.001-0.429) % Nucleat RBC Rel Count 0.0 (0.00-0.2) % Eos # (Auto) 0.24 (0.04-0.54) x10^3/uL Immature Gran # (Auto) 0.10 H (0.001-0.031) x10^3u/L Absolute Lymphs (auto) 1.36 (1.32-3.57) x10^3/uL Absolute Monos (auto) 0.82 (0.30-0.82) x10^3/uL Absolute Nucleated RBC 0.00 (0.00-0.012) x10^3u/L Lymphocytes % 26.2 (21.8-53.1) % Monocytes % 15.8 H (5.3-12.2) % Eosinophils % 4.6 (0.8-7.0) % Basophils % 1.0 (0.2-1.2) % Absolute Granulocytes 2.63 (1.78-5.38) x10^3/uL Basophils # 0.05 (0.01-0.08) x10^3/uL Sodium 138 (135-145) mmol/L Potassium 3.7 (3.5-5.1) mmol/L Chloride 103 (98-107) mmol/L Carbon Dioxide 29 (22-30) mmol/L Anion Gap 9.1 (5-15) MEQ/L BUN 22 H (9-20) mg/dL Creatinine 1.07 (0.66-1.25) mg/dL Estimated GFR 77.5 ML/MIN Glucose 124 H (74-106) mg/dL POC Glucometer 143 H (74 to 106) mg/dL Calcium 8.4 (8.4-10.2) mg/dL Total Bilirubin 0.30 (0.2-1.3) mg/dL AST 39 (17-59) U/L ALT 18 (0-50) U/L Alkaline Phosphatase 73 (38-126) U/L Serum Total Protein 5.5 L (6.3-8.2) g/dL Albumin 2.7 L (3.5-5.0) g/dL 12/15/23 Range/Units 11:44 WBC (4.23-9.07) x10^3/uL RBC (4.63-6.08) x10^6/uL Hgb (13.7-17.5) g/dL Hct (40.1-51.0) % MCV (79.0-92.2) fL MCH (25.7-32.2) pg MCHC (32.3-36.5) g/dL RDW (11.6-14.4) % Plt Count (163-337) x10^3/uL MPV (9.4-12.4) fL Gran % (34.0-67.9) % Immature Gran % (Auto) (0.001-0.429) % Nucleat RBC Rel Count (0.00-0.2) % Eos # (Auto) (0.04-0.54) x10^3/uL Immature Gran # (Auto) (0.001-0.031) x10^3u/L Absolute Lymphs (auto) (1.32-3.57) x10^3/uL Absolute Monos (auto) (0.30-0.82) x10^3/uL Absolute Nucleated RBC (0.00-0.012) x10^3u/L Lymphocytes % (21.8-53.1) % Monocytes % (5.3-12.2) % Eosinophils % (0.8-7.0) % Basophils % (0.2-1.2) % Absolute Granulocytes (1.78-5.38) x10^3/uL Basophils # (0.01-0.08) x10^3/uL Sodium (135-145) mmol/L Potassium (3.5-5.1) mmol/L Chloride (98-107) mmol/L Carbon Dioxide (22-30) mmol/L Anion Gap (5-15) MEQ/L BUN (9-20) mg/dL Creatinine (0.66-1.25) mg/dL Estimated GFR ML/MIN Glucose (74-106) mg/dL POC Glucometer 163 H (74 to 106) mg/dL Calcium (8.4-10.2) mg/dL Total Bilirubin (0.2-1.3) mg/dL AST (17-59) U/L ALT (0-50) U/L Alkaline Phosphatase (38-126) U/L Serum Total Protein (6.3-8.2) g/dL Albumin (3.5-5.0) g/dL Micro Results-Entire Visit: Microbiology 12/08/23 16:36 Gram Stain - Final Perirectal Gram Stain Result 1 - Final Gram Stain Result 2 - Final Gram Stain Result 3 - Final Gram Stain Result 4 - Final AFB Specimen Processing - Final Acid Fast Bacilli Smear - Final Anaerobic Culture - Preliminary Anaerobic Culture Result 1 - Preliminary Anaerobic Culture Result 2 - Preliminary Tissue Culture - Final Aerobic Culture Result 1 - Final Aerobic & Anaerobic Susceptibility - Final Anaerobic Culture - Final Aerobic Culture - Final Anaerobic Culture Result 1 - Final Anaerobic Culture Result 2 - Final Antimicrobic Susceptibility - Final Aerobic Culture Result 1 - Final Aerobic Culture Result 2 - Final 12/08/23 10:54 Blood Culture - Final Blood 12/08/23 10:45 Blood Culture - Final Blood 12/08/23 12:46 Urine Culture - Final Catherized NO GROWTH 12/08/23 16:36 Urine Culture - Final Catherized NO GROWTH Accuchecks Date 12/15/23 Date 12/15/23 Date 12/14/23 Date 12/14/23 Date 12/14/23 Time 12:08 Time 07:13 Time 22:09 Time 19:42 Time 17:32 - Procedures and Test Procedures and Tests throughout Hospitalization: Therapy Orders & Screens 12/08/23 19:51 PT Screen per Nursing Assess ONCE Comment: Protocol Order Physician Instructions: Greater than 3 points order PT Admission Screenin Reason For Exam: Triggered on Admission Diagnosis: DKA Open Wound/Cellutlitis/Pressure Ulcers: Yes Acute Fx/ORIF/Change in wt bearing status: No Severe MUSCULOSKELETAL pain: No ADL Dysfunction: Yes Acute CVA w/Hemiparesis/Hemiplegia: No Decreased Functional Mobility/Strength: Yes Sprain/Strain: No Acute Post-op Mobility Dysfunction: No Total Points: 9 12/10/23 09:36 PT Eval & Treat (MD Order) ONCE Reason for Eval:: wekness, DKA, Masha-rectal abcess Diagnosis: DKA OT Eval and Treat (MD Order) ONCE Comment: Physician Instructions: Reason For Exam: Diagnosis: DKA Discharge Exam General Appearance: no apparent distress Neurologic Exam: alert, oriented x 3, cooperative Eye Exam: PERRL Ears, Nose, Throat Exam: normal ENT inspection Neck Exam: normal inspection Respiratory Exam: normal breath sounds, lungs clear Cardiovascular Exam: regular rate/rhythm, normal heart sounds Gastrointestinal/Abdomen Exam: soft, normal bowel sounds Male Genitalia Exam: deferred Rectal Exam: deferred Back Exam: normal inspection Extremity Exam: normal inspection Skin Exam: other (see wound assessment) Wound Assessment: Skin/Wound Assessment Wound/Incision Assessment Start: 12/08/23 19:51 Text: Status: Active Freq: Q6H Protocol: Document 12/15/23 06:00 LB (Rec: 12/15/23 06:02 LB [id number]) Wound/Incision Assessment Left Buttock Wound Assessment Shift Assessment Wound Type Incision Wound Stage Non Pressure Wound Dressing Status Changed Drainage Amount None Packing Type Gauze Roll Primary Dressing border mode Secondary Dressing ABD Comment dressing CDI Wound Photo Photo Taken Yes Comment: in chart Final Diagnosis/Problem List - Final Discharge Diagnosis/Problem (1) DKA (diabetic ketoacidosis) Current Visit: Yes Status: Resolved Code(s): E11.10 - TYPE 2 DIABETES MELLITUS WITH KETOACIDOSIS WITHOUT COMA (2) Necrotizing fasciitis Current Visit: Yes Status: Acute Code(s): M72.6 - NECROTIZING FASCIITIS (3) Perianal abscess Current Visit: Yes Status: Acute Code(s): K61.0 - ANAL ABSCESS (4) Uncontrolled type II diabetes mellitus Current Visit: Yes Status: Chronic Code(s): QXP6446 - (5) Obesity (BMI 30.0-34.9) Current Visit: Yes Status: Chronic Code(s): E66.9 - OBESITY, UNSPECIFIED (6) Hypophosphatemia Current Visit: Yes Status: Resolved Code(s): E83.39 - OTHER DISORDERS OF PHOSPHORUS METABOLISM (7) Type 2 diabetes mellitus with diabetic chronic kidney disease Current Visit: No Status: Chronic Code(s): E11.22 - TYPE 2 DIABETES MELLITUS W DIABETIC CHRONIC KIDNEY DISEASE (8) Hypokalemia Current Visit: Yes Status: Resolved Code(s): E87.6 - HYPOKALEMIA - Discharge Discharge Date: 12/15/23 Disposition: Swing Bed @ [facility] Condition: Stable Prescriptions: No Action Pentoxifylline 400 mg PO BID Metoprolol Succinate 25 mg Xl* [Toprol-Xl 25MG Tablets] 25 mg PO DAILY Clopidogrel Bisulfate [Clopidogrel] 75 mg PO DAILY Aspirin [Aspirin EC] 81 mg PO DAILY Dulaglutide [Trulicity] 0.75 ml SQ WEEKLY lisinopriL [Lisinopril] 40 mg PO DAILY Evolocumab [Repatha Sureclick] 140 mg SQ UD Furosemide [Lasix] 20 mg PO DAILY Potassium Chloride 10 meq PO DAILY Dorzolamide HCl/Timolol Maleat [Dorzolamide-Timolol Eye Drops] 1 drop OP BID Follow up with: KENNEY CHOWDHURY [Primary Care Provider] - 01/01/24 2:00 pm MICHAEL RAMIREZ MD [ACTIVE STAFF] -
[2023-12-15] MEDS ORDERED: NORCO 5/325 MG ONE (15:59)
== END 2023-12-15 14:54 | disposition swing bed (61) | DRG 981 ==
LOC: ED 09:36 → ICU 17:50 → MED SURG 12-10 13:15
PROVIDERS: ADMIT Internal Medicine; ATTEND Internal Medicine
PROC: 0D9Q0ZZ Drainage of Anus, Open Approach (ICD-10-PCS; principal; 2023-12-08)
DX: E11.10 Type 2 diabetes mellitus with ketoacidosis without coma (principal); M72.6 Necrotizing fasciitis; K61.0 Anal abscess; N49.3 Fournier gangrene; E11.65 Type 2 diabetes mellitus with hyperglycemia; E66.9 Obesity, unspecified; E83.39 Other disorders of phosphorus metabolism; E11.22 Type 2 diabetes mellitus with diabetic chronic kidney disease; I12.9 Hypertensive chronic kidney disease with stage 1 through stage 4 chronic kidney disease, or unspecified chronic kidney disease; N18.32 Chronic kidney disease, stage 3b; E87.6 Hypokalemia; B96.20 Unspecified Escherichia coli [E. coli] as the cause of diseases classified elsewhere; Z79.899 Other long term (current) drug therapy; Z95.0 Presence of cardiac pacemaker; Z79.4 Long term (current) use of insulin
CPT/HCPCS: 00862; 10061; 36000; 36415; 36573; 36600; 51702; 71045; 72193; 74176; 80048; 80053; 80202; 81001; 82375; 82803; 82947; 83605; 83735; 84100; 84132; 84134; 85025; 85027; 87040; 87046; 87070; 87075; 87086; 87116; 87205; 87206; 93005; 96360; 96365; 96374; 96375; 97161; 97165; 97530; 99140; 99285; 99291; Q3014; J0330; J0692; J1170; J1642; J1815; J1817; J2250; J2270; J2405; J2704; J3010; J3470; A9270-GY; J3370

== ENCOUNTER 2023-12-15 11:09 | Inpatient (IN) | payer MEDICARE, OTHER ==
[2023-12-15] MEDS ORDERED: Glutose 15 GM ORAL GEL PO PRN (15:03)
[2023-12-15] MEDS ORDERED: D50W 50 ml Abboject IV PRN (15:03)
[2023-12-15] MEDS ORDERED: Tums EX 750 MG PO PRN (15:03)
[2023-12-15] MEDS ORDERED: GlucaGen 1 MG IM PRN (15:03)
[2023-12-15] MEDS ORDERED: MEDICATION INTERVENTION MC SCH (15:03)
[2023-12-15] MEDS: NORCO 5/325 MG PO PRN (16:02)
[2023-12-15] MEDS: HUMALOG SQ SCH (16:54)
[2023-12-15] MEDS: HUMALOG SQ PRN (16:55)
[2023-12-15] MEDS: FLAGYL 500 MG IVPB 500 MG/100 ML BAG IV SCH (19:20)
[2023-12-15] MEDS: Docusate Sodium 100 MG PO SCH (22:12)
[2023-12-15] MEDS: Maxipime 2 GM** 2 G in Dextrose 5%/Water IV Soln. 100ML PLUS BAG 100 ML IV SCH (22:13)
[2023-12-15] MEDS: Lantus Insulin SQ SCH (23:07)
[2023-12-15] MEDS: COSOPT OPHTHALMIC 10 ML OP SCH (23:07)
[2023-12-15] MEDS: Sodium Chloride 0.9% 10 ML FLUSH Syringe PICC SCH (23:08)
[2023-12-16 07:01] LABS: ALBUMIN 2.9 g/dL (3.5-5.0); BILIRUBIN,TOTAL 0.5 mg/dL (0.2-1.3); Calcium 8.3 mg/dL (8.4-10.2); EST GLOMERULAR FILTRATION RATE 84.1 ML/MIN; Potassium 3.9 mmol/L (3.5-5.1); Total Protein 5.8 g/dL (6.3-8.2)
[2023-12-16] MEDS: PHARMACY DOSING REQUEST MC ONE (08:32)
[2023-12-16] MEDS: Klor Con PO SCH (09:53)
[2023-12-16] MEDS: Toprol-Xl 25MG Tablets PO SCH (09:53)
[2023-12-16] MEDS: LASIX 20 MG PO SCH (09:53)
[2023-12-16] MEDS: ECOTRIN 81 MG PO SCH (09:53)
[2023-12-16] MEDS: PLAVIX Tablet PO SCH (09:53)
[2023-12-16] MEDS: Zestril 20 MG PO SCH (09:54)
[2023-12-16] MEDS: Protonix 20MG Tablet PO SCH (09:54)
[2023-12-16 10:22] LABS: Absolute Neutrophil Ct (ANC) 3.59 x10^3/uL (1.78-5.38); BASOPHIL % 0.8 % (0.2-1.2); Basophil (Absolute #) 0.05 x10^3/uL (0.01-0.08); Eosinophil (Absolute #) 0.18 x10^3/uL (0.04-0.54); Hematocrit 36.8 % (40.1-51.0); Hemoglobin 11.2 g/dL (13.7-17.5); IMMATURE GRAN # 0.09 x10^3u/L (0.001-0.031); IMMATURE GRAN % 1.5 % (0.001-0.429); Lymphocyte (Absolute #) 1.38 x10^3/uL (1.32-3.57); Lymphocytes % 23.3 % (21.8-53.1); Mean Cell Volume 88.5 fL (79.0-92.2); Mean Corpuscular Hemoglobin 26.9 pg (25.7-32.2); Mean Corpuscular Hgb Concent. 30.4 g/dL (32.3-36.5); Mean Platelet Volume 9.9 fL (9.4-12.4); Monocyte (Absolute #) 0.63 x10^3/uL (0.30-0.82); Monocytes % 10.6 % (5.3-12.2); Neutrophil % 60.8 % (34.0-67.9); Platelet Count 202 x10^3/uL (163-337); Red Blood Count 4.16 x10^6/uL (4.63-6.08); Red Cell Distribution Width 14.3 % (11.6-14.4); White Blood Count 5.9 x10^3/uL (4.23-9.07)
--- NOTE | 2023-12-16 12:10 | PCM.SB.HP ---
Swing Bed H&P - Acute Care H&P in SB Record Acute H&P in Swing Bed Medical Record & valid with no change: Yes - Acute Care H&P Revisions as follows Physical Exam Changes: HPI: Mr. Bains is a 63 year old male with a pmhx of HTN, Type II DM, CABG, and obesity admitted 12/08/23 with Admitted 12/08/23 with DKA/ perirectal abscess and necrotizing fasciitis. CT abd/pelvis performed in ED appearances shows fat stranding with extraluminal soft tissue gas in the left perianal soft tissues along the left gluteal cleft extending to the left ischiorectal fossa. Findings suggestive of left perianal abscess with cellulitis concerning for necrotizing soft tissue infection. Surgery consulted and I&D performed. IP antimicrobials including Cefepime, Flagyl, and Vancomycin. Blood and urine cultures NGTD. Perirectal cultures with Ecoli, bacteroides fragilis, and prevotella disiens . Vancomycin d/cd 12/14/23. Cefepime/flagyl continued. DKA has resolved. Surgery following. Patient transitioned to swing bed for further IV abx/wound therapy. 12/15: -Patient continues to do well. Patient states left shoulder with mild pain due to sleep position last night. Pain and blood glucose levels controlled. Lantus was held last night. Will advise nursing to not hold lantus. Wound pain only with dressing changes. Nursing to walk patient with walker BID for 120ft. General Appearance: no apparent distress Neurologic: alert, oriented x 3, cooperative Eye Exam: PERRL/EOMI Ears, Nose, Throat Exam: normal ENT inspection Neck Exam: normal inspection Respiratory: normal breath sounds, lungs clear Cardiovascular: regular rate/rhythm, normal heart sounds Gastrointestinal: soft, normal bowel sounds Pelvic Exam: not done Extremity Exam: normal inspection Skin Exam: other (Wound to left buttock covered with dressing - see wound assessment ) - Acute Care ROS Revisions Constitutional: No Symptoms Eyes (ROS): No Symptoms Ears, Nose, & Throat: No Symptoms Respiratory: No Symptoms Cardiac: No Symptoms Abdominal/Gastrointestinal: No Symptoms Genitourinary Symptoms: No Symptoms Genitourinary Symptoms: No Symptoms Musculoskeletal: No Symptoms Skin: No Symptoms Neurological: No Symptoms Psychological: No Symptoms Endocrine: No Symptoms Hematologic/Lymphatic: No Symptoms Immunological/Allergic: No Symptoms
[2023-12-17 06:28] LABS: BASOPHIL % 0.8 % (0.2-1.2); Basophil (Absolute #) 0.05 x10^3/uL (0.01-0.08); Eosinophil % 4.5 % (0.8-7.0); Eosinophil (Absolute #) 0.27 x10^3/uL (0.04-0.54); Hematocrit 34.2 % (40.1-51.0); Hemoglobin 10.5 g/dL (13.7-17.5); IMMATURE GRAN # 0.13 x10^3u/L (0.001-0.031); IMMATURE GRAN % 2.2 % (0.001-0.429); Lymphocyte (Absolute #) 1.62 x10^3/uL (1.32-3.57); Mean Cell Volume 87.2 fL (79.0-92.2); Mean Corpuscular Hemoglobin 26.8 pg (25.7-32.2); Mean Corpuscular Hgb Concent. 30.7 g/dL (32.3-36.5); Mean Platelet Volume 9.8 fL (9.4-12.4); Monocyte (Absolute #) 0.82 x10^3/uL (0.30-0.82); Monocytes % 13.7 % (5.3-12.2); Neutrophil % 51.8 % (34.0-67.9); Platelet Count 213 x10^3/uL (163-337); Red Blood Count 3.92 x10^6/uL (4.63-6.08); Red Cell Distribution Width 14.5 % (11.6-14.4)
[2023-12-17 06:51] LABS: ALBUMIN 3.1 g/dL (3.5-5.0); ANION GAP 7.9 MEQ/L (5-15); BILIRUBIN,TOTAL 0.3 mg/dL (0.2-1.3); Calcium 8.6 mg/dL (8.4-10.2); Creatinine 1 1.09 mg/dL (0.66-1.25); EST GLOMERULAR FILTRATION RATE 75.8 ML/MIN; Potassium 3.7 mmol/L (3.5-5.1); Total Protein 6.1 g/dL (6.3-8.2)
[2023-12-18 05:13] LABS: Absolute Neutrophil Ct (ANC) 4.54 x10^3/uL (1.78-5.38); Basophil (Absolute #) 0.07 x10^3/uL (0.01-0.08); Eosinophil % 3.6 % (0.8-7.0); Eosinophil (Absolute #) 0.26 x10^3/uL (0.04-0.54); Hematocrit 35.4 % (40.1-51.0); Hemoglobin 10.7 g/dL (13.7-17.5); IMMATURE GRAN # 0.12 x10^3u/L (0.001-0.031); IMMATURE GRAN % 1.6 % (0.001-0.429); Lymphocyte (Absolute #) 1.49 x10^3/uL (1.32-3.57); Lymphocytes % 20.4 % (21.8-53.1); Mean Cell Volume 88.5 fL (79.0-92.2); Mean Corpuscular Hemoglobin 26.8 pg (25.7-32.2); Mean Corpuscular Hgb Concent. 30.2 g/dL (32.3-36.5); Mean Platelet Volume 9.7 fL (9.4-12.4); Monocyte (Absolute #) 0.81 x10^3/uL (0.30-0.82); Monocytes % 11.1 % (5.3-12.2); Neutrophil % 62.3 % (34.0-67.9); Platelet Count 235 x10^3/uL (163-337); Red Cell Distribution Width 14.6 % (11.6-14.4); White Blood Count 7.3 x10^3/uL (4.23-9.07)
[2023-12-18 05:42] LABS: ALBUMIN 3.1 g/dL (3.5-5.0); ANION GAP 6.8 MEQ/L (5-15); BILIRUBIN,TOTAL 0.4 mg/dL (0.2-1.3); Calcium 8.4 mg/dL (8.4-10.2); Creatinine 1 1.09 mg/dL (0.66-1.25); EST GLOMERULAR FILTRATION RATE 75.8 ML/MIN; Potassium 3.7 mmol/L (3.5-5.1); Total Protein 6.2 g/dL (6.3-8.2)
[2023-12-18] MEDS: Lantus Insulin SQ SCH (10:10)
[2023-12-18] MEDS: Aplisol ID ONE (13:20)
[2023-12-19 05:16] LABS: BASOPHIL % 1.8 % (0.2-1.2); Basophil (Absolute #) 0.11 x10^3/uL (0.01-0.08); Eosinophil % 4.5 % (0.8-7.0); Eosinophil (Absolute #) 0.27 x10^3/uL (0.04-0.54); Hematocrit 34.8 % (40.1-51.0); Hemoglobin 10.6 g/dL (13.7-17.5); IMMATURE GRAN # 0.06 x10^3u/L (0.001-0.031); Lymphocyte (Absolute #) 1.51 x10^3/uL (1.32-3.57); Lymphocytes % 24.9 % (21.8-53.1); Mean Corpuscular Hemoglobin 27.1 pg (25.7-32.2); Mean Corpuscular Hgb Concent. 30.5 g/dL (32.3-36.5); Monocyte (Absolute #) 0.71 x10^3/uL (0.30-0.82); Monocytes % 11.7 % (5.3-12.2); Neutrophil % 56.1 % (34.0-67.9); Platelet Count 225 x10^3/uL (163-337); Red Blood Count 3.91 x10^6/uL (4.63-6.08); Red Cell Distribution Width 14.7 % (11.6-14.4); White Blood Count 6.1 x10^3/uL (4.23-9.07)
[2023-12-19 05:43] LABS: ALBUMIN 3.1 g/dL (3.5-5.0); ANION GAP 8.5 MEQ/L (5-15); BILIRUBIN,TOTAL 0.5 mg/dL (0.2-1.3); Calcium 8.5 mg/dL (8.4-10.2); Creatinine 1 1.19 mg/dL (0.66-1.25); EST GLOMERULAR FILTRATION RATE 68.2 ML/MIN; Potassium 4.1 mmol/L (3.5-5.1); Total Protein 6.1 g/dL (6.3-8.2)
[2023-12-19] MEDS: TYLENOL 325 MG PO SCH (11:46)
[2023-12-20 05:04] LABS: Hematocrit 33.8 % (40.1-51.0); Hemoglobin 10.4 g/dL (13.7-17.5); Mean Cell Volume 87.8 fL (79.0-92.2); Red Blood Count 3.85 x10^6/uL (4.63-6.08)
[2023-12-20 05:05] LABS: Mean Corpuscular Hgb Concent. 30.8 g/dL (32.3-36.5); Mean Platelet Volume 9.7 fL (9.4-12.4); Platelet Count 226 x10^3/uL (163-337)
[2023-12-20 05:34] LABS: ALBUMIN 3.2 g/dL (3.5-5.0); BILIRUBIN,TOTAL 0.4 mg/dL (0.2-1.3); Calcium 8.7 mg/dL (8.4-10.2); Creatinine 1 1.22 mg/dL (0.66-1.25); EST GLOMERULAR FILTRATION RATE 66.2 ML/MIN; Potassium 3.8 mmol/L (3.5-5.1); Total Protein 6.2 g/dL (6.3-8.2)
--- NOTE | 2023-12-20 12:35 | PCM.NOTE ---
Date and Time: 12/20/23 1230 Subjective Assessment: 12/20/23 Mr. Bains is a 63 year old male with a pmhx of HTN, Type II DM, CABG, and obesity admitted 12/08/23 with Admitted 12/08/23 with DKA/ perirectal abscess and necrotizing fasciitis. CT abd/pelvis performed in ED appearances shows fat stranding with extraluminal soft tissue gas in the left perianal soft tissues along the left gluteal cleft extending to the left ischiorectal fossa. Findings suggestive of left perianal abscess with cellulitis concerning for necrotizing soft tissue infection. Surgery consulted and I&D performed. IP antimicrobials including Cefepime, Flagyl, and Vancomycin. Blood and urine cultures NGTD. Perirectal cultures with Ecoli, bacteroides fragilis, and prevotella disiens . Vancomycin d/cd 12/14/23. Cefepime/flagyl continued. DKA has resolved. Surgery following. Patient transitioned to swing bed for further IV abx/wound therapy. Pt continues to do well with PT IP. He is not requring pain meds with dressing changes. Wound appears to be healing well per nursing staff and PT. He is c/o of an odd sensation with Flagyl and Tylenol added to be given with infusion and he refused. He states he can handle it and doesn;t need any more meds at this time. Placed in contact and droplet isolation after further discussion with infectious disease nurse. Discussed the need for possible CPAP at night for obstructive sleep apnea. OP sleep study ordered. CO2 33 today. He denies CP, SOB, abd. pain, N/V/D. - Review of Systems Constitutional: No Fever, No Chills Eyes: No Symptoms Ears, Nose, & Throat: No Symptoms Respiratory: No Cough, No Short Of Breath Cardiac: No Chest Pain, No Edema, No Syncope Abdominal/Gastrointestinal: No Abdominal Pain, No Nausea, No Vomiting, No Diarrhea Genitourinary Symptoms: No Dysuria Musculoskeletal: No Back Pain, No Neck Pain Skin: Other (wound masha- rectal region), No Rash Neurological: No Dizziness, No Focal Weakness, No Sensory Changes Psychological: No Symptoms Endocrine: No Symptoms Hematologic/Lymphatic: No Symptoms Immunological/Allergic: No Symptoms Objective Exam General Appearance: no apparent distress, alert Neurologic Exam: alert, oriented x 3, cooperative, normal mood/affect, nml cerebellar function, sensation nml, No motor deficits Skin Exam: normal color, warm, dry Wound Assessment: Skin/Wound Assessment Wound/Incision Assessment Start: 12/15/23 18:00 Text: Status: Active Freq: Q6H Protocol: Document 12/20/23 07:42 SEAN (Rec: 12/20/23 07:44 SEAN [id number]) Wound/Incision Assessment Left Buttock Wound Assessment Shift Assessment Wound Type Incision Wound Stage Non Pressure Wound Dressing Status Dry & Intact Drainage Amount None Eye Exam: PERRL, EOMI, eyes nml inspection Ears, Nose, Throat Exam: normal ENT inspection, pharynx normal, moist mucous membranes Neck Exam: normal inspection, non-tender, supple, full range of motion Respiratory Exam: normal breath sounds, lungs clear, No respiratory distress Cardiovascular Exam: regular rate/rhythm, normal heart sounds Gastrointestinal/Abdomen Exam: soft, No tenderness, No mass Extremity Exam: normal inspection, normal range of motion Back Exam: normal inspection, normal range of motion, No CVA tenderness, No vertebral tenderness Male Genitalia Exam: deferred Rectal Exam: tenderness (perirectal wound- see pics in chart) Objective Data Vital Signs: Vital Signs - 24 hr Temp Pulse Resp BP Pulse Ox 12/20/23 07:26 97.3 F 64 18 134/64 94 L 12/19/23 20:00 97.5 F 66 18 122/56 91 L Pain Assessment - Last Documented Pain Intensity 0 Pain Scale Used 0-10 Pain Scale Intake and Output: Intake & Output 12/18/23 12/19/23 12/20/23 12/21/23 11:59 11:59 11:59 11:59 Intake Total 860 1320 888 Output Total 1450 1850 1675 Balance -590 -530 -787 Weight 89 kg 89 kg Lab Results: Lab Results-Last 24 Hours 12/19/23 12/19/23 12/20/23 Range/Units 16:06 22:29 04:55 WBC 8.0 (4.23-9.07) x10^3/uL RBC 3.85 L (4.63-6.08) x10^6/uL Hgb 10.4 L (13.7-17.5) g/dL Hct 33.8 L (40.1-51.0) % MCV 87.8 (79.0-92.2) fL MCH 27.0 (25.7-32.2) pg MCHC 30.8 L (32.3-36.5) g/dL RDW 15.0 H (11.6-14.4) % Plt Count 226 (163-337) x10^3/uL MPV 9.7 (9.4-12.4) fL Sodium (135-145) mmol/L Potassium (3.5-5.1) mmol/L Chloride (98-107) mmol/L Carbon Dioxide (22-30) mmol/L Anion Gap (5-15) MEQ/L BUN (9-20) mg/dL Creatinine (0.66-1.25) mg/dL Estimated GFR ML/MIN Glucose (74-106) mg/dL POC Glucometer 184 H 181 H (74 to 106) mg/dL Calcium (8.4-10.2) mg/dL Total Bilirubin (0.2-1.3) mg/dL AST (17-59) U/L ALT (0-50) U/L Alkaline Phosphatase (38-126) U/L Serum Total Protein (6.3-8.2) g/dL Albumin (3.5-5.0) g/dL 12/20/23 12/20/23 12/20/23 Range/Units 04:55 06:49 11:19 WBC (4.23-9.07) x10^3/uL RBC (4.63-6.08) x10^6/uL Hgb (13.7-17.5) g/dL Hct (40.1-51.0) % MCV (79.0-92.2) fL MCH (25.7-32.2) pg MCHC (32.3-36.5) g/dL RDW (11.6-14.4) % Plt Count (163-337) x10^3/uL MPV (9.4-12.4) fL Sodium 138 (135-145) mmol/L Potassium 3.8 (3.5-5.1) mmol/L Chloride 103 (98-107) mmol/L Carbon Dioxide 33 H (22-30) mmol/L Anion Gap 6.0 (5-15) MEQ/L BUN 24 H (9-20) mg/dL Creatinine 1.22 (0.66-1.25) mg/dL Estimated GFR 66.2 ML/MIN Glucose 131 H (74-106) mg/dL POC Glucometer 156 H 178 H (74 to 106) mg/dL Calcium 8.7 (8.4-10.2) mg/dL Total Bilirubin 0.40 (0.2-1.3) mg/dL AST 29 (17-59) U/L ALT 19 (0-50) U/L Alkaline Phosphatase 69 (38-126) U/L Serum Total Protein 6.2 L (6.3-8.2) g/dL Albumin 3.2 L (3.5-5.0) g/dL Multi-Disciplinary Progress Notes: Multi-Disciplinary Progress Notes 12/20/23 12:03 Case Management Note by Judit Davidson ATTEMPTED TO ORDER CHAIR CUSHION FOR PATIENT- UNABLE TO PROCESS THRU INSURANCE D/T PATIENT NOT HAVE A WHEELCHAIR. WILL SEE IF PATIENT WANTS TO TRY A DONUT CUSHION Initialized on 12/20/23 12:03 - END OF NOTE 12/19/23 20:27 Physical Therapy Note by Demi(Joey#[id number])Stephanie ASSISTED NURSING STAFF W/ DRESSING CHANGE TODAY. NOTED STOOL PRESENT IN WOUND BED AND ON DRESSING. WOUND CLEANSED W/ STERILE SALINE FLUSH AND STOOL WIPED AWAY FROM SKIN. NOTABLE IMPROVEMENT IN GRANULATION PRESENT IN WOUND BED. <25% ESCHAR NOTED. PICTURE TAKEN AND PLACE IN HARD CHART. MELGISORB CALCIUM ALGINATE STRIPS CUT AND PLACED IN TUNNELS AT 2:00 AND 10:00. PLACED CALCIUM ALIGINATE IN ENTIRETY OF WOUND BED AND COVERED W/ 6x6 BORDERED GAUZE USING BORDER OF DRESSING TO LIFT MEDIAL FLAP OF WOUND LATERALLY AND AWAY FROM RECTAL OPENING. PT. PERFORMS LE EX'S W/ 1# CUFF WEIGHT. AMBULATING 200' W/ ROLLATOR W/ SBA-MOD I. WILL CONT. P.T. 5X/WK UNTIL D/C. PLAN TO WORK ON STEP NEGOTIATION TOMORROW. Addendum entered and electronically signed by Nicole#[id number])Stephanie PT 12/20/23 09:15: WOUND SIZE - 9.25 CM L X 5 CM W; D 5 CM D TUNNNELS 2 CM @ 2:00 1 CM @ 1:00 Initialized on 12/19/23 20:27 - END OF NOTE Assessment/Plan (1) Necrotizing fasciitis Current Visit: No Status: Acute Code(s): M72.6 - NECROTIZING FASCIITIS (2) Perianal abscess Current Visit: No Status: Acute Code(s): K61.0 - ANAL ABSCESS (3) Obesity (BMI 30.0-34.9) Current Visit: No Status: Chronic Code(s): E66.9 - OBESITY, UNSPECIFIED (4) Type 2 diabetes mellitus with diabetic chronic kidney disease Current Visit: No Status: Chronic Qualifiers: Diabetes mellitus terminal press operator insulin use: with terminal press operator use Chronic kidney disease stage: stage 3 (moderate) Chronic kidney disease stage 3 subtype: stage 3b (GFR 30-44) Qualified Code(s): E11.22 - Type 2 diabetes mellitus with diabetic chronic kidney disease; N18.32 - Chronic kidney disease, stage 3b; Z79.4 - prison (current) use of insulin Code(s): E11.22 - TYPE 2 DIABETES MELLITUS W DIABETIC CHRONIC KIDNEY DISEASE (5) Uncontrolled type II diabetes mellitus Current Visit: No Status: Chronic Qualifiers: Glycemic state: with hyperglycemia Qualified Code(s): E11.65 - Type 2 diabetes mellitus with hyperglycemia Code(s): CQD4344 - (6) DKA (diabetic ketoacidosis) Current Visit: No Status: Resolved Code(s): E11.10 - TYPE 2 DIABETES MELLITUS WITH KETOACIDOSIS WITHOUT COMA (7) Hypophosphatemia Current Visit: No Status: Resolved Assessment & Plan: 1. DKA (diabetic ketoacidosis) -DKA protocol with insulin gtt initially - now resolved - Lantus started 35 units BID, Humalog s/s moderate dosing, Humalog 10 units with meals, accuchecks ac/hs - Carb consistent diet -A1c > 14 12/12/23: -Blood glucose levels stable, continue current insulin regimen 12/19 - Glucose stable Code(s): E11.10 - TYPE 2 DIABETES MELLITUS WITH KETOACIDOSIS WITHOUT COMA (2) Necrotizing fasciitis Current Visit: Yes Status: Acute Assessment & Plan: -CT imaging 12/08/23 with left perianal abscess with cellulitis concerning for necrotizing soft tissue infection - Antimicrobial history: Cefepime/Flagyl/Vancomycin -concern for worsening infection 12/09/23 - CT pelvis (12/09/23) Showing status of post drainage of the former collection, there is Interval soft tissue loss in the left gluteal cleft with mild fat stranding without signs of fluid collection, abscess formation, or significant hemorrhage. the rest of the scan is stable - Discussed case with Edwin, wound is improving, no further surgical intervention as of now, plan to monitor with IV abx and wound care- consider wound vac - may be good candidate for swing bed 12/12/23 -Wound culture with ECOLI, sensitivity pending -PICC placed- most likely will need 2 weeks of abx 12/13/23: -continue current IV abx until final culture results -Unable to place wound vac at this time - may consider in future - will attempt calcium alginate to promote granulation per PT notes 12/13: -Wound cultures with Ecoli, bacteroides fragilis, and prevotella disiens. Will dc vanc and continue cefepime/Flagyl based on sensitivities -dressing changes per surgery - swing bed 12/19 - dressing changes per PT - PT daily - Contact and droplet isolation Code(s): M72.6 - NECROTIZING FASCIITIS (3) Perianal abscess Current Visit: Yes Status: Acute Assessment & Plan: -Antimicrobial history stated in necrotizing fasciitis plan - s/p I&D - Masha-rectal Cultures pending - WBC 11.6 - BC x2 pending -NGTD - [place] in place for wound healing in ICU pt. 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 - Hold Plavix x2 days per surgery - PT/OT - Prostat 64 protein supplement added daily to aide in wound healing 12/11: -Plavix/ASA resumed -see necrotizing faciitis -continue above plan-will have wound vac placed 12/19 12/19 - dressing changes per PT - PT daily - Contact and droplet isolation - surgery following Code(s): K61.0 - ANAL ABSCESS (4) Uncontrolled type II diabetes mellitus Current Visit: Yes Status: Acute Qualifiers: Glycemic state: with hyperglycemia Qualified Code(s): E11.65 - Type 2 diabetes mellitus with hyperglycemia Assessment & Plan: - A1C > 14 -ADA diet - carb consistent diet -Lispro 10UTIDWM/SSI -Glargine 30 U BID Code(s): GFK0715 - (5) Obesity (BMI 30.0-34.9) Current Visit: Yes Status: Acute Assessment & Plan: - advised ADA diet and exercise control Code(s): E66.9 - OBESITY, UNSPECIFIED (6) Hypophosphatemia Current Visit: Yes Status: Acute Assessment & Plan: - resolved Code(s): E83.39 - OTHER DISORDERS OF PHOSPHORUS METABOLISM (7) Type 2 diabetes mellitus with diabetic chronic kidney disease Current Visit: No Status: Chronic Qualifiers: Diabetes mellitus nursing home insulin use: with terminal press operator use Chronic kidney disease stage: stage 3 (moderate) Chronic kidney disease stage 3 subtype: sta ge 3b (GFR 30-44) Qualified Code(s): E11.22 - Type 2 diabetes mellitus with diabetic chronic kidney disease; N18.32 - Chronic kidney disease, stage 3b; Z79.4 - predatory animal exterminator (current) use of insulin Assessment & Plan: - see uncontrolled diabetes above -Baseline creat around 1.5 - now wnl VTE: SCD's /Next of KIN: Marianna Yulisa [phone] D/C plan: 12/25/23 Code(s): E83.39 - OTHER DISORDERS OF PHOSPHORUS METABOLISM (8) Obstructive sleep apnea Current Visit: Yes Status: Acute Assessment & Plan: - OP sleep study ordered Code(s): G47.33 - OBSTRUCTIVE SLEEP APNEA (ADULT) (PEDIATRIC)
[2023-12-21] MEDS: Acidophilus TABLET PO SCH (16:59)
--- NOTE | 2023-12-21 18:42 | CONS ---
The patient has a large perineal wound. Pictures on the chart. Pictures reviewed. The wound was not specifically reviewed with him. He is sitting up in a chair. He is doing fairly well. We anticipate that he will run his course of antibiotics about Monday, and maybe he can be transferred out at that time. That looks like a reasonable approach. We have been asked to continue on this course as the wound is quite deep.
[2023-12-25 04:46] LABS: Hematocrit 35.1 % (40.1-51.0); Mean Cell Volume 87.5 fL (79.0-92.2); Mean Corpuscular Hemoglobin 27.4 pg (25.7-32.2); Mean Corpuscular Hgb Concent. 31.3 g/dL (32.3-36.5); Mean Platelet Volume 10.8 fL (9.4-12.4); Platelet Count 181 x10^3/uL (163-337); Red Blood Count 4.01 x10^6/uL (4.63-6.08); White Blood Count 7.6 x10^3/uL (4.23-9.07)
[2023-12-25 05:22] LABS: ALBUMIN 3.3 g/dL (3.5-5.0); ANION GAP 8.6 MEQ/L (5-15); BILIRUBIN,TOTAL 0.5 mg/dL (0.2-1.3); Calcium 8.8 mg/dL (8.4-10.2); Creatinine 1 1.17 mg/dL (0.66-1.25); EST GLOMERULAR FILTRATION RATE 69.6 ML/MIN; Potassium 4.3 mmol/L (3.5-5.1); Total Protein 6.4 g/dL (6.3-8.2)
--- NOTE | 2023-12-25 05:37 | PCM.NOTE ---
Date and Time: 12/25/23 0532 Subjective Assessment: Mr. Bains is a 63 year old male with a pmhx of HTN, Type II DM, CABG, and obesity admitted 12/08/23 with Admitted 12/08/23 with DKA/ perirectal abscess and necrotizing fasciitis. CT abd/pelvis performed in ED appearances shows fat stranding with extraluminal soft tissue gas in the left perianal soft tissues a long the left gluteal cleft extending to the left ischiorectal fossa. Findings suggestive of left perianal abscess with cellulitis concerning for necrotizing soft tissue infection. Surgery consulted and I&D performed. IP antimicrobials including Cefepime, Flagyl, and Vancomycin. Blood and urine cultures NGTD. Perirectal cultures with Ecoli, bacteroides fragilis, and prevotella disiens . Vancomycin d/cd 12/14/23. Cefepime/flagyl continued. DKA has resolved. Surgery following. Patient transitioned to swing bed for further IV abx/wound therapy. Objective Exam Wound Assessment: Skin/Wound Assessment Wound/Incision Assessment Start: 12/15/23 18:00 Text: Status: Active Freq: Q6H Protocol: Document 12/25/23 03:00 LB (Rec: 12/25/23 03:51 LB [id number]) Wound/Incision Assessment Left Buttock Wound Assessment Shift Assessment Wound Type Incision Wound Stage Non Pressure Wound Dressing Status Dry & Intact Drainage Odor Mild Odor Comment dressing CDI Wound Photo Photo Taken No Objective Data Vital Signs: Vital Signs - 24 hr Temp Pulse Resp BP Pulse Ox 12/24/23 20:00 97.8 F 66 18 127/61 96 12/24/23 08:00 97.5 F 61 17 134/62 98 Pain Assessment - Last Documented Pain Intensity 0 Pain Scale Used 0-10 Pain Scale Intake and Output: Intake & Output 12/22/23 12/23/23 12/24/23 12/25/23 11:59 11:59 11:59 11:59 Intake Total 995 1720 920 Output Total 2245 1710 700 900 Balance -1250 10 220 -900 Weight 85.6 kg Lab Results: Lab Results-Last 24 Hours 12/24/23 12/24/23 12/24/23 Range/Units 07:50 11:17 16:10 WBC (4.23-9.07) x10^3/uL RBC (4.63-6.08) x10^6/uL Hgb (13.7-17.5) g/dL Hct (40.1-51.0) % MCV (79.0-92.2) fL MCH (25.7-32.2) pg MCHC (32.3-36.5) g/dL RDW (11.6-14.4) % Plt Count (163-337) x10^3/uL MPV (9.4-12.4) fL Sodium (135-145) mmol/L Potassium (3.5-5.1) mmol/L Chloride (98-107) mmol/L Carbon Dioxide (22-30) mmol/L Anion Gap (5-15) MEQ/L BUN (9-20) mg/dL Creatinine (0.66-1.25) mg/dL Estimated GFR ML/MIN Glucose (74-106) mg/dL POC Glucometer 134 H 148 H 248 H (74 to 106) mg/dL Calcium (8.4-10.2) mg/dL Total Bilirubin (0.2-1.3) mg/dL AST (17-59) U/L ALT (0-50) U/L Alkaline Phosphatase (38-126) U/L Serum Total Protein (6.3-8.2) g/dL Albumin (3.5-5.0) g/dL 12/24/23 12/25/23 12/25/23 Range/Units 21:11 04:02 04:02 WBC 7.6 (4.23-9.07) x10^3/uL RBC 4.01 L (4.63-6.08) x10^6/uL Hgb 11.0 L (13.7-17.5) g/dL Hct 35.1 L (40.1-51.0) % MCV 87.5 (79.0-92.2) fL MCH 27.4 (25.7-32.2) pg MCHC 31.3 L (32.3-36.5) g/dL RDW 15.0 H (11.6-14.4) % Plt Count 181 (163-337) x10^3/uL MPV 10.8 (9.4-12.4) fL Sodium 138 (135-145) mmol/L Potassium 4.3 (3.5-5.1) mmol/L Chloride 103 (98-107) mmol/L Carbon Dioxide 31 H (22-30) mmol/L Anion Gap 8.6 (5-15) MEQ/L BUN 28 H (9-20) mg/dL Creatinine 1.17 (0.66-1.25) mg/dL Estimated GFR 69.6 ML/MIN Glucose 103 (74-106) mg/dL POC Glucometer 166 H (74 to 106) mg/dL Calcium 8.8 (8.4-10.2) mg/dL Total Bilirubin 0.50 (0.2-1.3) mg/dL AST 23 (17-59) U/L ALT 14 (0-50) U/L Alkaline Phosphatase 70 (38-126) U/L Serum Total Protein 6.4 (6.3-8.2) g/dL Albumin 3.3 L (3.5-5.0) g/dL Assessment/Plan (1) Necrotizing fasciitis Current Visit: No Status: Acute Assessment & Plan: -CT imaging 12/08/23 with left perianal abscess with cellulitis concerning for necrotizing soft tissue infection - Antimicrobial history: Cefepime/Flagyl/Vancomycin -concern for worsening infection 12/09/23 - CT pelvis (12/09/23) Showing status of post drainage of the former collection, there is Interval soft tissue loss in the left gluteal cleft with mild fat stranding without signs of fluid collection, abscess formation, or significant hemorrhage. the rest of the scan is stable - Discussed case with Edwin, wound is improving, no further surgical intervention as of now, plan to monitor with IV abx and wound care- consider wound vac - may be good candidate for swing bed 12/12/23 -Wound culture with ECOLI, sensitivity pending -PICC placed- most likely will need 2 weeks of abx 12/13/23: -continue current IV abx until final culture results -Unable to place wound vac at this time - may consider in future - will attempt calcium alginate to promote granulation per PT notes 12/13: -Wound cultures with Ecoli, bacteroides fragilis, and prevotella disiens. Will dc vanc and continue cefepime/Flagyl based on sensitivities -dressing changes per surgery -consider swing bed 12/19 - dressing changes per PT - PT daily - Contact and droplet isolation Code(s): M72.6 - NECROTIZING FASCIITIS (2) Perianal abscess Current Visit: No Status: Acute Assessment & Plan: -Antimicrobial history stated in necrotizing fasciitis plan - s/p I&D - Masha-rectal Cultures pending - WBC 11.6 - BC x2 pending -NGTD - [place] in place for wound healing in ICU pt. 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 - Hold Plavix x2 days per surgery - PT/OT - Prostat 64 protein supplement added daily to aide in wound healing 12/11: -Plavix/ASA resumed -see necrotizing faciitis -continue above plan-will have wound vac placed 12/19 12/19 - dressing changes per PT - PT daily - Contact and droplet isolation - surgery following Code(s): K61.0 - ANAL ABSCESS (3) Obstructive sleep apnea Current Visit: Yes Status: Acute Assessment & Plan: - OP sleep study ordered Code(s): G47.33 - OBSTRUCTIVE SLEEP APNEA (ADULT) (PEDIATRIC) (4) DKA (diabetic ketoacidosis) Current Visit: Yes Status: Acute Assessment & Plan: -Resolved Code(s): E11.10 - TYPE 2 DIABETES MELLITUS WITH KETOACIDOSIS WITHOUT COMA (5) Type 2 diabetes mellitus with diabetic chronic kidney disease Current Visit: No Status: Chronic Qualifiers: Diabetes mellitus salvage determiner insulin use: with salvage determiner use Chronic kidney disease stage: stage 3 (moderate) Chronic kidney disease stage 3 subtype: stage 3b (GFR 30-44) Qualified Code(s): E11.22 - Type 2 diabetes mellitus with diabetic chronic kidney disease; N18.32 - Chronic kidney disease, stage 3b; Z79.4 - snf (current) use of insulin Assessment & Plan: - see uncontrolled diabetes above -Baseline creat around 1.5 - now wnl Code(s): E11.22 - TYPE 2 DIABETES MELLITUS W DIABETIC CHRONIC KIDNEY DISEASE (6) Uncontrolled type II diabetes mellitus Current Visit: No Status: Chronic Qualifiers: Glycemic state: with hyperglycemia Qualified Code(s): E11.65 - Type 2 diabetes mellitus with hyperglycemia Assessment & Plan: - A1C > 14 -ADA diet - carb consistent diet -Lispro 10UTIDWM/SSI -Glargine 30 U BID Code(s): [id number] - (7) Obesity (BMI 30.0-34.9) Current Visit: No Status: Chronic Assessment & Plan: - advised ADA diet and exercise control Code(s): E66.9 - OBESITY, UNSPECIFIED (8) Hypophosphatemia Current Visit: No Status: Resolved Assessment & Plan: -resolved VTE: SCD's /Next of KIN: Marianna Márquez [phone] D/C plan: 12/25/23 Code(s): E83.39 - OTHER DISORDERS OF PHOSPHORUS METABOLISM
--- NOTE | 2023-12-26 05:17 | PCM.DS ---
Discharge Summary Date of Admission: 12/15/23 14:55 Date of Discharge: 12/26/23 Admitting Physician: CHAPINCITO DANIELSON MD Consults: Consults on Case 12/15/23 15:03 Consult Surgery ROUTINE Primary Care Provider: KENNEY CHOWDHURY Allergies Allergies Penicillins Allergy (Verified 12/08/23 09:42) states "don't know, my mom just always said that" Hospital Summary - Hospital Course Hospital Course: Mr. Bains is a 63 year old male with a pmhx of HTN, Type II DM, CABG, and obesity admitted 12/08/23 with Admitted 12/08/23 with DKA/ perirectal abscess and necrotizing fasciitis. CT abd/pelvis performed in ED appearances shows fat stranding with extraluminal soft tissue gas in the left perianal soft tissues a long the left gluteal cleft extending to the left ischiorectal fossa. Findings suggestive of left perianal abscess with cellulitis concerning for necrotizing soft tissue infection. Surgery consulted and I&D performed. IP antimicrobials including Cefepime, Flagyl, and Vancomycin. Patient transitioned to swing bed for further IV abx/wound therapy. Blood and urine cultures NGTD. Perirectal cultures with Ecoli, bacteroides fragilis, and prevotella disiens . Vancomycin d/cd 12/14/23. Completed course of Cefepime/flagyl 12/23/23. DKA has resolved. Surgery has cleared patient for discharge. Advised OP follow up with surgery/ PCP/ and wound therapy which have been set up. Dexcom ordered for patient. Ad vised endocrinology follow up. Will send out insulin and diabetic supplies. Education on diabetes management provided to patient. Labs/vitals stable. Patient cleared for discharge. OP sleep study and endocrinology appts made. Discharge Note Latest Assessment & Plan (1) Necrotizing fasciitis Current Visit: No Status: Acute Assessment & Plan: -CT imaging 12/08/23 with left perianal abscess with cellulitis concerning for necrotizing soft tissue infection - Antimicrobial history: Cefepime/Flagyl/Vancomycin -concern for worsening infection 12/09/23 - CT pelvis (12/09/23) Showing status of post drainage of the former collection, there is Interval soft tissue loss in the left gluteal cleft with mild fat stranding without signs of fluid collection, abscess formation, or significant hemorrhage. the rest of the scan is stable - Discussed case with Edwin, wound is improving, no further surgical intervention as of now, plan to monitor with IV abx and wound care- consider wound vac - may be good candidate for swing bed 12/12/23 -Wound culture with ECOLI, sensitivity pending -PICC placed- most likely will need 2 weeks of abx 12/13/23: -continue current IV abx until final culture results -Unable to place wound vac at this time - may consider in future - will attempt calcium alginate to promote granulation per PT notes 12/13: -Wound cultures with Ecoli, bacteroides fragilis, and prevotella disiens. Will dc vanc and continue cefepime/Flagyl based on sensitivities -dressing changes per surgery -consider swing bed 12/19 - dressing changes per PT - PT daily - Contact and droplet isolation Code(s): M72.6 - NECROTIZING FASCIITIS (2) Perianal abscess Current Visit: No Status: Acute Assessment & Plan: -Antimicrobial history stated in necrotizing fasciitis plan - s/p I&D - Masha-rectal Cultures pending - WBC 11.6 - BC x2 pending -NGTD - [place] in place for wound healing in ICU pt. 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 - Hold Plavix x2 days per surgery - PT/OT - Prostat 64 protein supplement added daily to aide in wound healing 12/11: -Plavix/ASA resumed -see necrotizing faciitis -continue above plan-will have wound vac placed 12/19 12/19 - dressing changes per PT - PT daily - Contact and droplet isolation - surgery following Code(s): K61.0 - ANAL ABSCESS (3) Obstructive sleep apnea Current Visit: Yes Status: Acute Assessment & Plan: - OP sleep study ordered Code(s): G47.33 - OBSTRUCTIVE SLEEP APNEA (ADULT) (PEDIATRIC) (4) DKA (diabetic ketoacidosis) Current Visit: Yes Status: Acute Assessment & Plan: -Resolved Code(s): E11.10 - TYPE 2 DIABETES MELLITUS WITH KETOACIDOSIS WITHOUT COMA (5) Type 2 diabetes mellitus with diabetic chronic kidney disease Current Visit: No Status: Chronic Qualifiers: Diabetes mellitus prison insulin use: with lobsterman use Chronic kidney disease stage: stage 3 (moderate) Chronic kidney disease stage 3 subtype: stage 3b (GFR 30-44) Qualified Code(s): E11.22 - Type 2 diabetes mellitus with diabetic chronic kidney disease; N18.32 - Chronic kidney disease, stage 3b; Z79.4 - skilled nursing (current) use of insulin Assessment & Plan: - see uncontrolled diabetes above -Baseline creat around 1.5 - now wnl Code(s): E11.22 - TYPE 2 DIABETES MELLITUS W DIABETIC CHRONIC KIDNEY DISEASE (6) Uncontrolled type II diabetes mellitus Current Visit: No Status: Chronic Qualifiers: Glycemic state: with hyperglycemia Qualified Code(s): E11.65 - Type 2 diabetes mellitus with hyperglycemia Assessment & Plan: - A1C > 14 -ADA diet - carb consistent diet -Lispro 10UTIDWM/SSI -Glargine 30 U BID Code(s): ONN0184 - (7) Obesity (BMI 30.0-34.9) Current Visit: No Status: Chronic Assessment & Plan: - advised ADA diet and exercise control Code(s): E66.9 - OBESITY, UNSPECIFIED (8) Hypophosphatemia Current Visit: No Status: Resolved Assessment & Plan: -resolved I spent 35 minutes [id number] with the patient on the day of discharge performing discharge exam, discussing hospital stay and discharge instructions with patient and caregivers, preparation of discharge records, prescriptions & referral forms and addressing any questions/concerns the patient had as documented above. - Vitals & Intake/Output Vital Signs: Vital Signs Temperature 97.9 F 12/25/23 20:00 Pulse Rate 72 12/25/23 20:00 Respiratory Rate 20 12/25/23 20:00 Blood Pressure 135/55 12/25/23 20:00 O2 Sat by Pulse Oximetry 98 12/25/23 20:00 Intake & Output: Intake & Output 12/23/23 12/24/23 12/25/23 12/26/23 11:59 11:59 11:59 11:59 Intake Total 1720 920 480 Output Total 0359 240 9295 1500 Balance 10 220 -1200 -1020 Weight 86.1 kg - Lab Result Diagrams: 12/25/23 04:02 12/25/23 04:02 Lab Results-Last 24 Hrs: Lab Results-Last 24 Hours 12/25/23 12/25/23 12/25/23 Range/Units 04:02 07:08 11:34 Sodium 138 (135-145) mmol/L Potassium 4.3 (3.5-5.1) mmol/L Chloride 103 (98-107) mmol/L Carbon Dioxide 31 H (22-30) mmol/L Anion Gap 8.6 (5-15) MEQ/L BUN 28 H (9-20) mg/dL Creatinine 1.17 (0.66-1.25) mg/dL Estimated GFR 69.6 ML/MIN Glucose 103 (74-106) mg/dL POC Glucometer 109 H 150 H (74 to 106) mg/dL Calcium 8.8 (8.4-10.2) mg/dL Total Bilirubin 0.50 (0.2-1.3) mg/dL AST 23 (17-59) U/L ALT 14 (0-50) U/L Alkaline Phosphatase 70 (38-126) U/L Serum Total Protein 6.4 (6.3-8.2) g/dL Albumin 3.3 L (3.5-5.0) g/dL 12/25/23 12/25/23 Range/Units 16:25 20:59 Sodium (135-145) mmol/L Potassium (3.5-5.1) mmol/L Chloride (98-107) mmol/L Carbon Dioxide (22-30) mmol/L Anion Gap (5-15) MEQ/L BUN (9-20) mg/dL Creatinine (0.66-1.25) mg/dL Estimated GFR ML/MIN Glucose (74-106) mg/dL POC Glucometer 245 H 147 H (74 to 106) mg/dL Calcium (8.4-10.2) mg/dL Total Bilirubin (0.2-1.3) mg/dL AST (17-59) U/L ALT (0-50) U/L Alkaline Phosphatase (38-126) U/L Serum Total Protein (6.3-8.2) g/dL Albumin (3.5-5.0) g/dL Micro Results-Entire Visit: Accuchecks Date 12/25/23 Date 12/25/23 Date 12/25/23 Time 16:37 Time 12:01 Time 07:17 - Procedures and Test Procedures and Tests throughout Hospitalization: Therapy Orders & Screens 12/15/23 15:03 PT Eval & Treat ( Order) ONCE Reason for Eval:: DECONDITIONING R/T NECROTIZING FASCIITIS Diagnosis: DECONDITIONING R/T NECROTIZING FASCITIS PT Screen per Nursing Assess ONCE Comment: Protocol Order Physician Instructions: Greater than 3 points order PT Admission Screenin Reason For Exam: Triggered on Admission Diagnosis: DKA Open Wound/Cellutlitis/Pressure Ulcers: Yes Acute Fx/ORIF/Change in wt bearing status: No Severe MUSCULOSKELETAL pain: No ADL Dysfunction: Yes Acute CVA w/Hemiparesis/Hemiplegia: No Decreased Functional Mobility/Strength: Yes Sprain/Strain: No Acute Post-op Mobility Dysfunction: No Total Points: 9 12/17/23 09:58 PT Clarification Order ROUTINE Comment: Physician Instructions: Reason For Exam: PT Clarification: P.T. TO TX 5X/WK UNTIL D/C TO ADDRESS FUNCTIONAL MOBILITY AND GAIT TRAINING, BALANCE ACTIVITIES, THER EX, AND WOUND RECOMMENDATIONS TO MAXIMIZE FUNCTIONAL POTENTIAL FOR SAFE RETURN HOME. Discharge Exam General Appearance: no apparent distress Neurologic Exam: alert, oriented x 3, cooperative Eye Exam: PERRL Ears, Nose, Throat Exam: normal ENT inspection Neck Exam: normal inspection Respiratory Exam: normal breath sounds, lungs clear Cardiovascular Exam: regular rate/rhythm, normal heart sounds Gastrointestinal/Abdomen Exam: soft, normal bowel sounds Male Genitalia Exam: deferred Rectal Exam: deferred Back Exam: normal inspection Extremity Exam: normal inspection Skin Exam: other (see wound assessment) Wound Assessment: Skin/Wound Assessment Wound/Incision Assessment Start: 12/15/23 18:00 Text: Status: Active Freq: Q6H Protocol: Document 12/26/23 02:00 SEAN (Rec: 12/26/23 02:12 SEAN [id number]) Wound/Incision Assessment Left Buttock Wound Assessment Shift Assessment Wound Type Incision Wound Stage Non Pressure Wound Dressing Status Changed Drainage Amount Minimal Drainage Description Serous Drainage Odor None/Absent Comment DRESSING CLEAN, DRY, AND INTACT Wound Photo Photo Taken No Final Diagnosis/Problem List - Final Discharge Diagnosis/Problem (1) Necrotizing fasciitis Current Visit: No Status: Acute Code(s): M72.6 - NECROTIZING FASCIITIS (2) Perianal abscess Current Visit: No Status: Resolved Code(s): K61.0 - ANAL ABSCESS (3) Obstructive sleep apnea Current Visit: Yes Status: Chronic Code(s): G47.33 - OBSTRUCTIVE SLEEP APNEA (ADULT) (PEDIATRIC) (4) DKA (diabetic ketoacidosis) Current Visit: Yes Status: Resolved Code(s): E11.10 - TYPE 2 DIABETES MELLITUS WITH KETOACIDOSIS WITHOUT COMA (5) Type 2 diabetes mellitus with diabetic chronic kidney disease Current Visit: No Status: Chronic Code(s): E11.22 - TYPE 2 DIABETES MELLITUS W DIABETIC CHRONIC KIDNEY DISEASE (6) Uncontrolled type II diabetes mellitus Current Visit: No Status: Chronic Code(s): [id number] - (7) Obesity (BMI 30.0-34.9) Current Visit: No Status: Chronic Code(s): E66.9 - OBESITY, UNSPECIFIED (8) Hypophosphatemia Current Visit: No Status: Resolved Code(s): E83.39 - OTHER DISORDERS OF PHOSPHORUS METABOLISM - Discharge Disposition: Home, Self-Care Condition: Stable Prescriptions: New Glucagon 1 mg [GlucaGen 1 MG] 1 mg IM Q15MIN PRN PRN 30 Days #1 kit PRN Reason: Hypoglycemia Insulin Lispro [Humalog Kwikpen] 10 unit SQ TIDWM 30 Days #1350 units MDD 45 Insulin Glargine [Lantus Insulin] 20 unit SQ BID unit Pantoprazole 20 mg [Protonix 20MG Tablet] 20 mg PO DAILY 30 Days #30 tablet Continue Pentoxifylline 400 mg PO BID Metoprolol Succinate 25 mg Xl* [Toprol-Xl 25MG Tablets] 25 mg PO DAILY Clopidogrel Bisulfate [Clopidogrel] 75 mg PO DAILY Aspirin [Aspirin EC] 81 mg PO DAILY lisinopriL [Lisinopril] 40 mg PO DAILY Evolocumab [Repatha Sureclick] 140 mg SQ UD Furosemide [Lasix] 20 mg PO DAILY Potassium Chloride 10 meq PO DAILY Dorzolamide HCl/Timolol Maleat [Dorzolamide-Timolol Eye Drops] 1 drop OP BID Discontinued Dulaglutide [Trulicity] 0.75 ml SQ WEEKLY Outpatient Orders: Sleep Study Facility: [facility], Location: RESPIRATORY THERAPY Additional Instructions: YOU HAVE AN APT AT [facility] WED 12/26 @930 THEY ARE LOCATED AT [facility], BUILDING 2 DEXCOM G7 ORDERED DEXCOM SENSOR ORDERED THRU [facility]- THEY WILL DELIVER IT TO YOUR HOME AND TEACH YOU HOW TO USE IT. YOU CAN FOLLOW UP WITH THEM AT [phone]. ADDITIONAL INFORMATION CAN BE FOUND AT [email or web address] IF ANY TROUBLE USING DEXCOM- CONTINUE USING MANUAL GLUCOMETER Follow up with: MARILU LOPEZ NP [NON-STAFF PHY W/O PRIVILEGES] - 01/02/24 2:00 pm KENNEY CHOWDHURY [Primary Care Provider] - 01/01/24 2:00 pm MICHAEL RGANT MD [ACTIVE STAFF] - 01/01/24 9:55 am
[2023-12-26 07:32] VITALS: BP 130/63; PULSE 68; RESP 16; TEMP 96.3; O2SAT 97
[2023-12-28] MEDS ORDERED: Aplisol ID SCH (10:00)
== END 2023-12-26 18:26 | disposition home or self-care (01) | DRG 557 ==
LOC: MED SURG 14:55
PROVIDERS: ADMIT Internal Medicine; ATTEND Internal Medicine
DX: M72.6 Necrotizing fasciitis (principal); E11.10 Type 2 diabetes mellitus with ketoacidosis without coma; K61.0 Anal abscess; G47.33 Obstructive sleep apnea (adult) (pediatric); E11.22 Type 2 diabetes mellitus with diabetic chronic kidney disease; I12.9 Hypertensive chronic kidney disease with stage 1 through stage 4 chronic kidney disease, or unspecified chronic kidney disease; N18.30 Chronic kidney disease, stage 3 unspecified; E11.65 Type 2 diabetes mellitus with hyperglycemia; E66.9 Obesity, unspecified; E83.39 Other disorders of phosphorus metabolism; Z79.899 Other long term (current) drug therapy; Z79.4 Long term (current) use of insulin; Z95.0 Presence of cardiac pacemaker
CPT/HCPCS: 36415; 80053; 82947; 85025; 85027; J0692; J1642; J1817; Q3014; 97110-GP; A9270-GY

== ENCOUNTER 2024-02-20 05:47 | Day surgery (SDC) | payer MEDICARE, OTHER ==
[2024-02-20] MEDS ORDERED: BETADINE 5% OPHTHALMIC 30 ML OP ONE (06:15)
[2024-02-20] MEDS ORDERED: TRIAMCINOLONE 15 MG/ML INJ INTRAOP ONE (06:15)
[2024-02-20] MEDS ORDERED: TETRACAINE 0.5% STERI-UNIT SOL OP ONE (06:15)
[2024-02-20] MEDS ORDERED: VIGAMOX/BSS 0.15% SYR IO ONE (06:15)
[2024-02-20] MEDS ORDERED: Sodium Chloride 0.9% 10 ML FLUSH Syringe IJ ONE (06:15)
[2024-02-20] MEDS: Ak-Dilate OPHTHALMIC*** 1.065 ML, Cyclogyl 1% OPHTH SOL 1.065 ML, GATIFLOXACIN 0.5% OPH... OP ONE (06:34)
[2024-02-20] MEDS: TETRACAINE 0.5% STERI-UNIT SOL OP ONE (06:35)
[2024-02-20] MEDS ORDERED: Zofran 4 MG/2 ML VIAL IV PRN (08:30)
[2024-02-20] MEDS ORDERED: DIPRIVAN 200 MG/20 ML IV ONE (08:42)
[2024-02-20 09:10] VITALS: RESP 16
[2024-02-20] MEDS: ACETAZOLAMIDE 250 MG TABLET PO ONE (09:11)
[2024-02-20 09:20] VITALS: O2SAT 96
[2024-02-20 09:22] VITALS: BP 134/66; PULSE 59; TEMP 97.1
== END 2024-02-20 09:32 | disposition home or self-care (01) ==
LOC: SDC 05:47
PROVIDERS: ATTEND Ophthalmology
DX: H25.811 Combined forms of age-related cataract, right eye (principal); E11.9 Type 2 diabetes mellitus without complications
CPT/HCPCS: 65820; 82947; C1780; J2704; A9270-GY